=== PATIENT | female | born 1965 | race Caucasian/White ===

== ENCOUNTER 2022-04-12 16:54 | Inpatient (IN) ==
--- NOTE | 2022-04-12 18:48 | XRay Report ---
SINGLE VIEW CHEST CLINICAL HISTORY: Strokelike symptoms. FINDINGS: An AP, portable, upright chest radiograph is obtained. No prior studies are available for c omparison at the time of dictation. The cardiomediastinal silhouette is unremarkable. The lungs and p leural spaces are clear. No pneumothorax is seen. The bony thorax is grossly intact. IMPRESSION: No active disease in the chest. ACT 112: Negative or not required by law. Electronically signed by: Sushant Lara M.D. 04/12/2022 6:46 PM
--- NOTE | 2022-04-12 19:16 | Emergency Department Note ---
Impression & Plan Acute CVA (cerebrovascular accident), Dizziness ED Provider Note NAME: DEYSI GRUBBS AGE: 57 SEX: F : 1965 ARRIVES VIA: Walk-In INFORMANT: Patient ED PROVIDER(S): Surendra Riddle DO CHIEF COMPLAINT: CVA HPI: Patient is a 57-year-old female with a past medical history of cervical radiculopathy that presents the ER for right arm weakness. Symptoms started on the . Patient has been having trouble walking and trouble getting words out since then. Patient was seen and evaluated at outside facility and will go with a TIA. Patient was seen by PCP today and referred in. Sister who is at bedside also notes that the patient has been having trouble getting her words out. She notes that she has been very unsteady since this started. No tingling or numbness. No other exacerbating or remitting factors. PAST MEDICAL HISTORY:See Below PAST SURGICAL HISTORY:See Below FAMILY HISTORY:See Below SOCIAL HISTORY:See Below HOME MEDICATIONS:See Below ALLERGIES:See Below VITALS:See Below PHYSICAL EXAMINATION: GENERAL: Sitting up in bed, alert, well appearing, well nourished, no distress, non-toxic EYE EXAM: normal conjunctiva. OROPHARYNX: no exudate, no erythema, lips, buccal mucosa, and tongue normal and mucous membranes are moist NECK: supple, no nuchal rigidity, no adenopathy, non-tender LUNGS: Clear to auscultation. Normal chest wall mechanics HEART: no murmurs, S1 normal and S2 normal ABDOMEN: abdomen soft, non-tender, normo-active bowel sounds, no masses, no rebound or guarding. UPPER EXTREMITIES: upper extremities are grossly normal. LOWER EXTREMITIES: No pitting edema. NEURO EXAM: Normal sensorium, cranial nerves II-XII grossly intact, normal speech, no weakness of arms, no weakness of legs. MEDICAL DECISION MAKING: Patient is a 57-year-old female external records were reviewed including MRI which showed subacute stroke ordered by Dr. Villa. Did discuss with PCP per physician Dr. Villa who is sending this patient over for complete stroke work- up. IV was established blood work is obtained. Blood pressure was slightly elevated at 155. Did allow permissive hypertension with recent stroke. Labs show mild leukocytosis. No anemia. INR unremarkable. BMP with no acidosis. LFTs bilirubin was unremarkable. Troponin was negative. COVID-negative. Chest x-ray was clean. EKG was nondiagnostic. He was updated bedside. [facility] in regards to the stroke which was subacute. Triage Nursing notes reviewed. Limited review of prior medical records performed Vital Signs: reviewed and remarkable for HTN Differential diagnosis: Differential Diagnosis includes but is not limited to ischemic Stroke, hemorrhagic stroke, bells palsy, mass, neoplasm, migraine headache, seizure, subarachnoid hemorrhage, TIA, and transient global amnesia. ER treatment provided: See below Diagnostics interpreted by me include EKG and cardiac monitoring as listed below: -Cardiac Monitoring: An order was placed for continuous cardiac monitoring. The monitor shows a rate of 90 with sinus rhythm. -ECG: Sinus rhythm rate 95 Normal axis No PVCs Poor baseline in the lateral leads showing nonspecific ST wave changes. QTc 497 -Laboratory studies:Interpreted by me as stated above in MDM and shown below. Imaging studies: Xrays: As interpreted by me: Portable AP upright 1 view chest unremarkable CTs show: none Consultation(s): [facility] Pierce approved in regards to presentation work-up and admission Procedures:none Critical Care: None Past Med/Surg History Medical History (Updated 04/12/22 @ 22:03 by Surendra Riddle DO) Depression Diabetes mellitus, type 2 Fibromyalgia Hx of duodenal ulcer Hx of migraines Hyperlipidemia Hypertension Post traumatic stress disorder Restless leg syndrome Sleep apnea BIPAP Surgical History H/O total hysterectomy History of bilateral tubal ligation History of cholecystectomy History of esophagogastroduodenoscopy (EGD) History of gynecologic surgery UTERINE ABLATION History of herniorrhaphy LEFT INGUINAL HERNIA X 2 History of repair of rotator cuff LEFT History of tooth extraction Nausea and vomiting after administration of anesthetic agent Status post de Quervain's release surgery LEFT HAND Family History Mother Family history of diabetes mellitus Father No problems noted. Grandmother (Paternal) Family history of diabetes mellitus Grandmother (Maternal) Family history of diabetes mellitus Social History Smoking Status: Former smoker Second Hand Exposure: Yes; Hx Alcohol Use: No Hx Substance Use: No Preferred Language: Moldovan Communication Ability: Effective Soda Dialyzer Required: No Beliefs That Will Affect Care: None Current Living Situation: Significant Other Feels Safe at Home: Yes Assistive Devices: BiPap and Contacts Allergies Allergies Allergy/AdvReac Type Severity Reaction Status Date / Time No Known Allergies Allergy Verified 04/12/22 18:50 Home Meds Home Medications Medication Instructions Recorded Confirmed amlodipine 5 mg tablet (Norvasc) 5 mg PO HS 02/23/19 04/12/22 atorvastatin 40 mg tablet 40 mg PO HS 02/23/19 04/12/22 duloxetine 30 mg capsule,delayed 30 mg PO QAM 02/23/19 04/12/22 release (Cymbalta) duloxetine 60 mg capsule,delayed 60 mg PO QAM 02/23/19 04/12/22 release metformin 1,000 mg tablet 1,000 mg PO BIDM 02/23/19 04/12/22 carvedilol 6.25 mg tablet 6.25 mg PO AMHS 04/12/22 04/12/22 cholecalciferol (vitamin D3) 50 50 mcg PO QAM 04/12/22 04/12/22 mcg (2,000 unit) capsule (Vitamin D3) diclofenac sodium 1 % topical gel 2 g topical QID PRN Pain 04/12/22 04/12/22 insulin detemir U-100 100 unit/mL 80 unit subcut BID 04/12/22 04/12/22 (3 mL) subcutaneous pen (Levemir FlexTouch U-100 Insulin) levothyroxine 75 mcg tablet 75 mcg PO DAILYBB 04/12/22 04/12/22 lisinopril 10 mg tablet 10 mg PO QAM 04/12/22 04/12/22 repaglinide 2 mg tablet 2 mg PO QPM 04/12/22 04/12/22 topiramate 50 mg tablet 50 mg PO AMHS 04/12/22 04/12/22 Results & Data (ED) Vital Signs Vital Signs - 24 hr 04/12/22 16:57 04/12/22 19:16 Temperature 36.4 C L Temperature Source Temporal Artery Scan Pulse Rate 94 H Pulse Rate [Finger] 94 H Pulse Rhythm [Finger] Regular Pulse Strength [Finger] Normal Respiratory Rate 18 18 Respiratory Effort / Characteristics Non-Labored Non-Labored Spontaneous Respiratory Depth Normal Normal Respiratory Pattern Regular Regular Blood Pressure 160/83 H Blood Pressure [Right Arm] 155/81 H Blood Pressure Mean 108 Blood Pressure Mean [Right Arm] 105 Blood Pressure Position Sitting Blood Pressure Position [Right Arm] Lying Pulse Oximetry 99 95 Oxygen Delivery Method Room Air Room Air Sepsis Recent Fever Within 48 Hours No Sepsis New/Unexplained Change in Mental Status No Sepsis Action Taken by Nursing No Action Required Laboratory Data 04/12/22 19:36 04/12/22 19:36 Lab Results 04/12/22 04/12/22 04/12/22 Range/Units 18:47 19:36 19:36 WBC 12.23 H (4.8-10.8) K/ul RBC 4.34 (3.93-5.22) M/uL Hgb 13.0 (12.0-16.0) g/dl Hct 39.2 (34.1-44.9) % MCV 90.3 (80.0-100.0) fL MCH 30.0 (25.0-34.0) pg MCHC 33.2 (32.0-36.0) g/dL RDW Std Deviation 42.3 (36.4-46.3) fL RDW Coeff of Lucius 12.7 (11.5-14.5) % Plt Count 378 (130-400) K/uL MPV 9.7 (9.4-12.3) fL PT 10.5 (9.0-12.0) Seconds INR 1.0 (0.9-1.1) APTT 24.5 (21.0-31.0) Seconds PTT Ratio 0.9 Sodium (136-145) mmol/L Potassium (3.5-5.1) mmol/L Chloride (98-107) mmol/L Carbon Dioxide (21-32) mmol/L Anion Gap (3-11) BUN (6-23) mg/dl Creatinine (0.6-1.2) mg/dl Est Cr Clr Drug Dosing ml/min Est GFR ( Amer) ml/min Est GFR (Non-Af Amer) ml/min BUN/Creatinine Ratio (10-20) Glucose (70-99(Fasting)) mg/dl Calcium (8.5-10.1) mg/dl Magnesium (1.7-2.4) mg/dl Total Bilirubin (0.2-1.0) mg/dl AST (13-39) U/L ALT (7-52) U/L Alkaline Phosphatase (34-104) U/L Troponin I High Sens (0-14) pg/ml Total Protein (6.0-8.3) gm/dl Albumin (3.4-5.0) gm/dl Globulin (2.5-4.0) gm/dl Albumin/Globulin Ratio (0.9-2) SARS-CoV-2, RNA, NAAT NEGATIVE (NEGATIVE) 04/12/22 Range/Units 19:36 WBC (4.8-10.8) K/ul RBC (3.93-5.22) M/uL Hgb (12.0-16.0) g/dl Hct (34.1-44.9) % MCV (80.0-100.0) fL MCH (25.0-34.0) pg MCHC (32.0-36.0) g/dL RDW Std Deviation (36.4-46.3) fL RDW Coeff of Lucius (11.5-14.5) % Plt Count (130-400) K/uL MPV (9.4-12.3) fL PT (9.0-12.0) Seconds INR (0.9-1.1) APTT (21.0-31.0) Seconds PTT Ratio Sodium 142 (136-145) mmol/L Potassium 4.2 (3.5-5.1) mmol/L Chloride 108 H (98-107) mmol/L Carbon Dioxide 27 (21-32) mmol/L Anion Gap 7 (3-11) BUN 21 (6-23) mg/dl Creatinine 0.95 (0.6-1.2) mg/dl Est Cr Clr Drug Dosing 68.0 ml/min Est GFR ( Amer) 76.0 ml/min Est GFR (Non-Af Amer) 65.6 ml/min BUN/Creatinine Ratio 22.1 H (10-20) Glucose 209 H (70-99(Fasting)) mg/dl Calcium 9.6 (8.5-10.1) mg/dl Magnesium 1.5 L (1.7-2.4) mg/dl Total Bilirubin 0.4 (0.2-1.0) mg/dl AST 15 (13-39) U/L ALT 15 (7-52) U/L Alkaline Phosphatase 93 (34-104) U/L Troponin I High Sens 7.8 (0-14) pg/ml Total Protein 7.3 (6.0-8.3) gm/dl Albumin 3.8 (3.4-5.0) gm/dl Globulin 3.5 (2.5-4.0) gm/dl Albumin/Globulin Ratio 1.1 (0.9-2) SARS-CoV-2, RNA, NAAT (NEGATIVE) Imaging Data Radiologist's Impression: Chest X-Ray 04/12/22 18:22 SINGLE VIEW CHEST CLINICAL HISTORY: Strokelike symptoms. FINDINGS: An AP, portable, upright chest radiograph is obtained. No prior tanya dies are available for comparison at the time of dictation. The cardiomediastinal silhouette is unremarkable. The lungs and pleural spaces are clear. No pneumothorax is seen. The bony thorax is grossly intact. IMPRESSION: No active disease in the chest. ACT 112: Negative or not required by law. Electronically signed by: Sushant Lara M.D. 04/12/2022 6:46 PM Discharge Plan Visit Data Chief Complaint: Referred by Doctor Stated Complaint: PREVIOUS STROKE, REF BY DOC, ED Provider: Surendra Riddle Discharge Problem: Acute CVA (cerebrovascular accident), Dizziness Forms Stand Alone Forms: My [facility] [place] [employer] - teamwork across [employer] Prescriptions Prescriptions: No Action atorvastatin 40 mg Tablet 40 mg PO HS amlodipine [Norvasc] 5 mg Tablet 5 mg PO HS metformin 1,000 mg Tablet 1,000 mg PO BIDM duloxetine [Cymbalta] 30 mg Capsule,Delayed Release(Dr/Ec) 30 mg PO QAM Rx Instructions: TOTAL DOSE 90 MG--TAKES WITH 60 MG CAP. duloxetine 60 mg Capsule,Delayed Release(Dr/Ec) 60 mg PO QAM Rx Instructions: TOTAL DOSE 90 MG--TAKES WITH 30 MG CAP. carvedilol 6.25 mg tablet 6.25 mg PO AMHS repaglinide 2 mg tablet 2 mg PO QPM levothyroxine 75 mcg tablet 75 mcg PO DAILYBB lisinopril 10 mg tablet 10 mg PO QAM topiramate 50 mg tablet 50 mg PO AMHS Levemir FlexTouch U-100 Insuln 100 unit/mL (3 mL) insulin pen 80 unit SUBCUT BID diclofenac sodium [Voltaren] 1 % Gel 2 g TOPICAL QID PRN (Reason: Pain) cholecalciferol (vitamin D3) [Vitamin D3] 50 mcg (2,000 unit) Capsule 50 mcg PO QAM Referrals Referrals: Venecia Villa, [Primary Care Provider] -
[2022-04-12 19:52] LABS: Hematocrit (blood only) 39.2 % (34.1-44.9); Mean Corpuscular Hgb Conc 33.2 g/dL (32.0-36.0); Mean Corpuscular Volume 90.3 fL (80.0-100.0); Mean Platelet Volume 9.7 fL (9.4-12.3); Platelet Count 378 K/uL (130-400); RDW Coefficient of Variation 12.7 % (11.5-14.5); RDW Standard Deviation 42.3 fL (36.4-46.3); Red Blood Count 4.34 M/uL (3.93-5.22); White Blood Count 12.23 K/ul (4.8-10.8)
[2022-04-12 20:04] LABS: Partial Thromboplastin Ratio 0.9; Partial Thromboplastin Time 24.5 Seconds (21.0-31.0); Prothrombin Time 10.5 Seconds (9.0-12.0)
[2022-04-12 20:14] LABS: Albumin Globulin Ratio 1.1 (0.9-2); Albumin Level 3.8 gm/dl (3.4-5.0); BUN Creatinine Ratio 22.1 (10-20); Bilirubin,Total 0.4 mg/dl (0.2-1.0); Calcium 9.6 mg/dl (8.5-10.1); Est GFR (Non-African American) 65.6 ml/min; Globulin 3.5 gm/dl (2.5-4.0); Magnesium 1.5 mg/dl (1.7-2.4); Potassium 4.2 mmol/L (3.5-5.1); Total Protein 7.3 gm/dl (6.0-8.3)
[2022-04-12 20:18] LABS: Troponin I High Sensitivity 7.8 pg/ml (0-14)
[2022-04-12] MEDS ORDERED: NITROGLYCERIN SL 0.4 MG/TAB TAB SL PRN (22:10)
[2022-04-12] MEDS ORDERED: GLUCAGON FOR INJ 1 MG VIAL SQ PRN (22:10)
[2022-04-12] MEDS ORDERED: GLUCOSE 10 TAB/TUBE PO PRN (22:10)
[2022-04-12] MEDS ORDERED: GLUCOSE 40% GEL 15 GM TUBE PO PRN (22:10)
[2022-04-12] MEDS ORDERED: SODIUM CHLORIDE 0.9% 1000ML 1,000 ML IV SCH (22:10)
[2022-04-12] MEDS ORDERED: DEXTROSE 50% 50 ML SYRINGE IV PRN (22:10)
[2022-04-12] MEDS ORDERED: CARBOHYDRATES FOR HYPOGLYCEMIA PO PRN (22:10)
[2022-04-12] MEDS ORDERED: LABETALOL HCL IV 5 MG/ML 20ML IV PRN (22:10)
[2022-04-12] MEDS ORDERED: PHARMACIST DISCHARGE MED REC CONSULT PRN (22:10)
[2022-04-12] MEDS ORDERED: ACETAMINOPHEN 325 MG TAB PO PRN (22:10)
[2022-04-12] MEDS ORDERED: ASPIRIN 81 MG ECTAB PO STA (22:10)
[2022-04-12] MEDS ORDERED: ATORVASTATIN 40 MG TAB PO SCH (22:10)
[2022-04-12] MEDS: MAGNESIUM SULFATE / D5W 1 GM/100 ML BAG IV SCH (22:29)
--- NOTE | 2022-04-12 22:50 | History and Physical Report ---
DATE OF ADMISSION: 04/12/2022 CHIEF COMPLAINT: CVA. HISTORY OF PRESENT ILLNESS: A 57-year-old female with past medical history significant for type 2 diabetes on long-term insulin, hyperlipidemia, history of hypomagnesemia, history of obstructive sleep apnea on CPAP, history of hypertension, history of CAD, obesity, GERD, chronic kidney disease stage III, fibromyalgia, degenerative disc disease, macular degeneration both eyes, polyneuropathy, essential hemorrhagic thrombocythemia, history of duodenal ulcer, history of chronic posttraumatic stress disorder, history of nonadherence to medications, comes with stroke-like symptoms. 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 She seemed confused. Then her came and she sat in the chair for 15 minutes. Her sister came in and they took her to the [facility] where she says she stayed for 3 days and had three CAT scans. The CAT scans did not show anything, but they thought maybe she might have a TIA. She was started on aspirin and discharged. The patient says she also had some imbalance, but there was no weakness. She says she thinks she is still not back to normal. She still has some dullness and also she has word finding difficulty many times in a day. No difficulty swallowing. Has some runny nose, some cough. No fevers, no chest pain, no shortness of breath, no nausea, no abdominal pain. Normal bowel and bladder movements. No blood in stools or black stools. No hematuria, no swelling in the legs. She is complaining some slight on and off blurred visions. No earache. She has some left temporal headache on and off lasting short period of times. Currently, resting comfortably and hemodynamically stable.MRI scan done as out patient today showed subacute CVA ALLERGIES: No known drug allergies. PAST MEDICAL HISTORY: As mentioned above. PAST SURGICAL HISTORY: Ablation of uterine fibroids, hysterectomy, ligation of oviducts, cholecystectomy, repair of inguinal hernia on left side. MEDICATIONS: The patient is on amlodipine 5 mg p.o. daily, atorvastatin 40 mg p.o. at bedtime, Coreg 6.25 mg p.o. b.i.d., vitamin D 50 mcg p.o. a.m., Voltaren 2 grams topical q.i.d. p.r.n., duloxetine 90 mg p.o. a.m., Levemir 80 subcutaneous b.i.d., levothyroxine 75 mcg p.o. daily, lisinopril 10 mg p.o. daily, metformin 1000 mg p.o. b.i.d., topiramate 50 mg p.o. b.i.d. FAMILY HISTORY: Significant for sister had breast cancer, melanoma. Sister has stroke. Paternal grandfather black lung. Paternal grandmother had kidney disease. Maternal grandmother had heart attack. Father had COPD. SOCIAL HISTORY: Lives with significant other. Former smoker, quit in 2008, smoked 1 pack a day for 23 years. No alcohol use. No drug use. REVIEW OF SYSTEMS: As per HPI. Rest of review of systems is negative. PHYSICAL EXAMINATION: GENERAL: The patient is obese, not in acute distress. VITAL SIGNS: Temperature 36.4, pulse 94, respiratory rate 18, blood pressure 155/81, oxygen on room air. HEENT: Pupils equal, round and reactive to light. Oral mucosa moist. NECK: No JVD or neck masses. CARDIOVASCULAR: S1 and S2 heard. Regular rate and rhythm. No murmur, no gallop. RESPIRATORY SYSTEM: Normal AP diameter. No accessory muscle use. No wheezing, no crackles. ABDOMEN: Soft, bowel sounds present, nontender, no distention. CENTRAL NERVOUS SYSTEM: Alert and oriented. No facial droop. Speech is clear. Tongue is midline. Can raise bros and clench teeth. Power 5/5 in all extremities. Can lift her lower extremity and hold it for a few seconds. Coordination of movements normal. No pronator drift. Sensation is intact. Position sense intact. [id number] test normal. EXTREMITIES: No edema, no erythema. LABORATORY DATA: WBC 12.2, hemoglobin 13, hematocrit 39.2, platelets 378. PT 10.5, INR 1, APTT 24.5. Sodium 142, potassium 4.2, chloride 108, bicarbonate 27, BUN 21, creatinine 0.95. Serum glucose 209, calcium 9.6, magnesium 1.5, total bilirubin 0.4, AST 15, ALT 15, alkaline phosphatase 93. SARS-CoV-2 rapid test negative. IMAGING DATA: Chest x-ray, no active disease in the chest. EKG: Normal sinus rhythm, rate of 95, nonspecific ST abnormalities. QTc of 497. MRI done as outpatient in the [facility] system shows : . No acute intracranial abnormality detected. However there is a subcentimeter focus of enhancement corresponding to a subacute infarct of the right frontal lobe anterior inferior aspect, without evidence of hemorrhagic transformation. 2. There are scattered foci of T2 hyperintensity in the cerebral and central pontine white matter bilaterally, without restricted diffusion, a non-specific finding. This pattern most commonly reflects chronic small vessel ischemic change (if the patient has appropriate risk factors). Otherwise, inflammatory, embolic, vasospastic and traumatic processes are also in the differential diagnosis. Cerebral volume loss is also noted. ASSESSMENT AND PLAN: 1. This is a 57-year-old female who presents with subacute CVA. The patient has stroke-like symptoms on last Friday, was admitted to [facility], had three CAT scans, but no findings as per patient They thought the patient might have TIA, started on aspirin. She has outpatient MRI done on 04/12/2022 showing subacute infarct of the right frontal lobe, anterior aspect without evidence of hemorrhagic transformation. She is continued on home Lipitor 40 mg. Follow lipid profile. Will follow HbA1c levels. We will monitor blood pressure control. Continue aspirin. We will get an echocardiogram, carotid Doppler, speech evaluation, PT/OT evaluation. Neuro consult in a.m. Closely monitor in the tele floor. 2. Hypertension: Continue her lisinopril, amlodipine, Coreg. We will monitor the blood pressure closely. 3. History of diabetes: Continue home Levemir. Hold metformin. Place on insulin sliding scale. Follow HbA1c level. Follow the blood sugars. 4. History of PTSD, fibromyalgia. Continue her duloxetine. 5. Sleep apnea: CPAP at bedtime. 6. History of coronary artery disease: On beta liudmila, statin and aspirin. 7. Morbid obesity: Needs counseling. 8. Chronic kidney disease, stage III: Presents with creatinine of 0.9. We will follow the labs. 9. Hypomagnesemia: We will replace. 10. Hyperlipidemia: On statin. 11. Deep venous thrombosis prophylaxis: Sequential compression devices for now. DISPOSITION: Closely monitor in the tele floor. Level 1 full code. PT, OT prior to discharge. Social service to help with discharge planning. Job ID: [id number] [facility]
[2022-04-12] MEDS: INSULIN ASPART PER UNIT SC SCH (23:01)
[2022-04-12] MEDS: LANTUS PER UNIT CHARGE SQ SCH (23:01)
[2022-04-12] MEDS: TOPIRAMATE 50 MG TAB PO SCH (23:38)
[2022-04-12] MEDS: carvediloL 6.25 MG TAB PO SCH (23:38)
[2022-04-12] MEDS: amLODIPine BESYLATE 5 MG TAB PO SCH (23:39)
[2022-04-13] MEDS: MAGNESIUM SULFATE / D5W 1 GM/100 ML BAG IV SCH (00:04)
[2022-04-13] MEDS: LEVOTHYROXINE SODIUM 75 MCG TABLET PO SCH (05:45)
[2022-04-13 08:21] LABS: Basophils # (auto) 0.06 K/uL (0-0.2); Basophils % (auto) 0.5 %; Eosinophils # (auto) 0.33 K/uL (0-0.50); Eosinophils % (auto) 2.7 %; Hematocrit (blood only) 37.3 % (34.1-44.9); Hemoglobin 12.5 g/dl (12.0-16.0); Immature Granulocytes # (auto) 0.04 K/uL (0.00-0.02); Immature Granulocytes % (auto) 0.3 %; Lymphocytes # (auto) 4.52 K/uL (1.2-3.4); Lymphocytes % (auto) 36.8 %; Mean Corpuscular Hemoglobin 30.4 pg (25.0-34.0); Mean Corpuscular Hgb Conc 33.5 g/dL (32.0-36.0); Mean Corpuscular Volume 90.8 fL (80.0-100.0); Mean Platelet Volume 9.8 fL (9.4-12.3); Monocytes # (auto) 0.87 K/uL (0.24-0.82); Monocytes % (auto) 7.1 %; Neutrophils # (auto) 6.47 K/uL (1.4-6.5); Neutrophils % (auto) 52.6 %; Platelet Count 365 K/uL (130-400); RDW Coefficient of Variation 12.7 % (11.5-14.5); RDW Standard Deviation 41.9 fL (36.4-46.3); Red Blood Count 4.11 M/uL (3.93-5.22); White Blood Count 12.29 K/ul (4.8-10.8)
[2022-04-13 08:38] LABS: BUN Creatinine Ratio 19.5 (10-20); Calcium 8.6 mg/dl (8.5-10.1); Chol HDL Ratio 3.8 (0-5); Creatinine Clr Calc Pharmacy 69.2 ml/min; Est GFR (African American) 84.5 ml/min; Est GFR (Non-African American) 72.9 ml/min; Potassium 3.6 mmol/L (3.5-5.1)
[2022-04-13 08:41] LABS: Estimated Average Glucose 171 mg/dl; Hemoglobin A1C 7.6 % (4.5-5.6)
[2022-04-13] MEDS: INSULIN ASPART PER UNIT SC SCH ×4 (09:14→20:06)
[2022-04-13] MEDS: carvediloL 6.25 MG TAB PO SCH ×2 (09:15→20:08)
[2022-04-13] MEDS: LANTUS PER UNIT CHARGE SQ SCH ×2 (09:15→20:07)
[2022-04-13] MEDS: DULoxetine HCL 30 MG CAP PO SCH (09:15)
[2022-04-13] MEDS: CHOLECALCIFEROL 1,000 UNITS 25 MCG TAB PO SCH (09:15)
[2022-04-13] MEDS: DULoxetine HCL 60 MG CAP PO SCH (09:15)
[2022-04-13] MEDS: lisinopril 10 MG TAB PO SCH (09:16)
[2022-04-13] MEDS: ASPIRIN 81 MG ECTAB PO SCH (09:16)
[2022-04-13] MEDS: TOPIRAMATE 50 MG TAB PO SCH ×2 (09:16→20:08)
--- NOTE | 2022-04-13 10:22 | Ultrasound Report ---
US carotid doppler BI CLINICAL HISTORY: 57 years-old Female with cva. Acute strokelike symptoms COMPARISON: None TECHNIQUE: Multiple real time sonographic images of the carotid bifurcations were obtained assessing castro scale, color Doppler and spectral wave form appearance FINDINGS: RIGHT CAROTID: The peak systolic velocity measured within the right ICA is 111 cm/sec. The end call tolic velocity measured 31 cm/sec. The ICA to CCA ratio measured 1.3 which correlates with a stenosi s of 0-50%. Mild atherosclerotic plaque of the right carotid bulb and proximal right ICA. LEFT CAROTID: The peak systolic velocity measured within the left ICA is 145 cm/sec. The end diasto lic velocity measured 42 cm/sec. The ICA to CCA ratio measured 1.1 which correlates with a stenosis o f 50-69%. Mild atherosclerotic plaque of the left carotid bulb and proximal left ICA. There is normal antegrade vertebral flow bilaterally. IMPRESSION: 1. Elevated peak systolic velocity within the left ICA correspond to stenosis of 50-69%. 2. Normal antegrade vertebral flow bilaterally. ACT 112: Negative or not required by law. The above report was generated using voice recognition software. It may contain grammatical, syntax o r spelling errors. Electronically signed by: Rohan Bonner M.D. 04/13/2022 10:20 AM
--- NOTE | 2022-04-13 10:45 | Neurology Consultation ---
Date of Consultation April 13, 2022 Assessment & Plan (1) Acute CVA (cerebrovascular accident): (2) Speech abnormality: (3) Dizziness: (4) Carotid stenosis, left: Plan this patient has a very small inferior anterior right frontal subacute CVA (likely initiated April 05 ). This is likely from small vessel ischemic disease. She has multiple risk factors for stroke including longstanding hypertension, diabetes, and dyslipidemia. She is a former heavy cigarette smoker, stopping 13 years ago. MRI of the brain done at [facility] on April 12 shows the subacute stroke and moderate scattered old small vessel ischemic disease diffusely. The patient has some dizziness of a nonspecific nature. on neurologic examination she has no focal findings, speech issues that I can ascertain ( although she is a little hesitant to find words at times) meningeal signs, or encephalopathy. Carotid ultrasound showed a 50-69% stenosis of the left ICA. Recommendations: 1. consider CT angiography of the head and neck with and without contrast 2. Continue 81 mg aspirin tablet daily. 3. Echocardiogram if not already ordered. 4. Continue controlling blood pressure as you are doing, aiming for a mean arterial pressure of 95-100. 5. the patient would be a high dose statin candidate given her MRI findings and age. Her triglycerides are elevated although her total cholesterol is reasonable. 6. Increase activity as able and consider physical, occupational, and speech th [facility] consult. 7. control glucose, aiming to lower the hemoglobin A1c closer to 7. 8. follow-up with her PCP after discharge. Overall, I spent a total of 75 minutes with this case, including review of records, review of MRI films, direct evaluation the patient at bedside, and discussion of the case with the patient and RN at bedside, and Dr. Reeder including differential diagnosis and treatment options. History of Present Illness Reason for Consultation: Patient is a 57-year-old, who was asked to see at the request of Dr. Pierce, for neurologic consultation regarding probable stroke Requesting Physician: Dr. Pierce Attending Physician: Ifeoma Reeder MD History of Present Illness this patient has a history of hypertension, diabetes, and dyslipidemia for many years. She also has restless leg syndrome and depression. She was not on any antiplatelet medication prior to admission. 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 This was markedly different for her and she was quite upset by this. She apparently went to the emergency room at [facility] and had CAT scans and other studies which were unremarkable. She had a tele visit with at either neurologist or neurosurgeon who felt the patient might still had a stroke and recommended an MRI. She was discharged from the hospital, and ended up seeing her PCP Dr. Villa, who ordered an MRI of the brain, which she got in [facility] April 12. The MRI Of the brain April 12, showed scattered T2 hyperintensities in the white matter and shree consistent with old small vessel ischemic disease. There was 1 small (sub cm) subacute infarct in the right frontal lobe ( anterior inferior). There was no hemorrhagic component. I reviewed these films. She was sent to [facility]. She arrived on April 12 at 4:57 p.m. with temperature 36.4, pulse 94 and regular, respiratory rate 18, blood pressure 160/83, and O2 saturation 99%. She had a nonfocal neurologic examination. CBC was remarkable for a white count of 12.3 and a chemistry profile was remarkable for glucose of 209. Chest x-ray was unremarkable. Her speech was slightly affected. Patient feels this morning that she still has hesitancy and word-finding difficulties although it has improved greater than 50% compared to last week. Today CBC showed no abnormalities and a Chem profile showed a magnesium of 1.5 and glucose of 183. Total cholesterol was 144 and triglycerides 268. Hemoglobin A1c was 7.6. The patient does have a longstanding history of pulsatile tinnitus without hearing loss. She denies weakness or numbness in the limbs but she does have a little bit of balance problem seemingly going to the left at times. Carotid ultrasound today showed a left internal carotid artery stenosis of 50-6 9%. Allergies Allergy/AdvReac Type Severity Reaction Status Date / Time No Known Allergies Allergy Verified 04/12/22 18:50 Home Medications Medication Instructions Recorded Confirmed Type amlodipine 5 mg tablet (Norvasc) 5 mg PO HS 02/23/19 04/12/22 History atorvastatin 40 mg tablet 40 mg PO HS 02/23/19 04/12/22 History duloxetine 30 mg capsule,delayed 30 mg PO QAM 02/23/19 04/12/22 History release (Cymbalta) duloxetine 60 mg capsule,delayed 60 mg PO QAM 02/23/19 04/12/22 History release metformin 1,000 mg tablet 1,000 mg PO BIDM 02/23/19 04/12/22 History carvedilol 6.25 mg tablet 6.25 mg PO AMHS 04/12/22 04/12/22 History cholecalciferol (vitamin D3) 50 50 mcg PO QAM 04/12/22 04/12/22 History mcg (2,000 unit) capsule (Vitamin D3) diclofenac sodium 1 % topical gel 2 g topical QID PRN Pain 04/12/22 04/12/22 History insulin detemir U-100 100 unit/mL 80 unit subcut BID 04/12/22 04/12/22 History (3 mL) subcutaneous pen (Levemir FlexTouch U-100 Insulin) levothyroxine 75 mcg tablet 75 mcg PO DAILYBB 04/12/22 04/12/22 History lisinopril 10 mg tablet 10 mg PO QAM 04/12/22 04/12/22 History repaglinide 2 mg tablet 2 mg PO QPM 04/12/22 04/12/22 History topiramate 50 mg tablet 50 mg PO AMHS 04/12/22 04/12/22 History Patient History Medical History (Updated 04/13/22 @ 11:30 by Foster Mistry MD) Depression Diabetes mellitus, type 2 Fibromyalgia Hx of duodenal ulcer Hx of migraines Hyperlipidemia Hypertension Post traumatic stress disorder Restless leg syndrome Sleep apnea BIPAP Surgical History H/O total hysterectomy History of bilateral tubal ligation History of cholecystectomy History of esophagogastroduodenoscopy (EGD) History of gynecologic surgery UTERINE ABLATION History of herniorrhaphy LEFT INGUINAL HERNIA X 2 History of repair of rotator cuff LEFT History of tooth extraction Nausea and vomiting after administration of anesthetic agent Status post de Quervain's release surgery LEFT HAND Family History Mother , age 56 of lung cancer Family history of diabetes mellitus Lung cancer Father , age 76 of COPD COPD (chronic obstructive pulmonary disease) Grandmother (Paternal) Family history of diabetes mellitus Grandmother (Maternal) Family history of diabetes mellitus Social History (Updated 04/13/22 @ 11:28 by Foster Mistry MD) Smoking Status: Former smoker Age Started Using Tobacco: 21; Age Quit Using Tobacco: 44; Second Hand Exposure: No; Do You Dip or Chew Tobacco: No; Tobacco Cessation Education Requested by Patient: No Hx Alcohol Use: No Hx Substance Use: No Preferred Language: Libyan Communication Ability: Effective Floriculturist Required: No Beliefs That Will Affect Care: None Current Living Situation: Significant Other current occupational status: employed 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 [employer] Other Information That Helps Us Care for You: No Feels Safe at Home: Yes Safety Concerns: Feels Safe At This Time Assistive Devices: None Review of Systems Constitutional: + weakness; no fever and no fatigue Eyes: no diplopia, no eye pain and no worsening vision Ear, Nose, Mouth, Throat: + tinnitus; no ear pain, no hearing loss, no dizziness, no snoring, no hoarseness and no dysphagia Respiratory: no cough and no dyspnea Cardiovascular: no chest pain, no palpitations and no lightheadedness Gastrointestinal: no abdominal pain, no nausea and no vomiting Genitourinary: no dysuria, no urinary frequency and no urinary incontinence Musculoskeletal: no back pain, no neck pain, no radicular pain, no joint pain and no myalgia Integumentary: no rash and no lesions Neurologic: + gait abnormality and + abnormal speech; no localized weakness, no generalized weakness, no tingling, no numbness, no tremor(s), no abnormal movements, no headache(s), no confusion and no memory loss Psychiatric: no depression, no irritability, no anxiety, no difficulty concentrating, no confusion and no hallucinations Endocrine: no fatigue and no flushing Hematologic / Lymphatic: no easy bleeding and no easy bruising Allergy / Immunological: no urticaria and no problem reported Exam (Neuro) Physical Exam: The patient is right-handed. The patient is awake, alert, and attentive. Speech is normal without any aphasia or dysarthria. The patient can name objects, repeat phrases, and has normal spontaneous speech. she can read words and sentences. I really do not detect any type of aphasia or dysarthria in this patient. Mentation and thought processes are intact, with orientation to person, place and time, and normal fund of knowledge. Attention and concentration are normal. Mood and affect are normal and appropriate. General appearance and grooming are normal. Short and long-term memory are intact. Pupils are 4 mm bilaterally and reactive to light. Extraocular eye muscles are intact without nystagmus. Visual acuity and visual schrader seem normal grossly to confrontation. There are no deficits to sensation in the face in all 3 distributions of the fifth cranial nerve bilaterally. Corneal reflexes are positive bilaterally. Facial strength and symmetry was normal bilaterally. Hearing seems normal bilaterally. Palate moves well without asymmetry. There is normal sternocleidomastoid and trapezius (shoulder shrug) strength bilaterally. Tongue is midline with good strength bilaterally. Neck has a full range of motion without discomfort. There are no cervical bruits bilaterally. There are no cranial or ocular bruits. Heart is without murmur. There is a regular rhythm and rate. Cervical, thoracic, and lumbar spine are nontender to palpation. Gait is narrow based, with good arm swing, turns, and stance , however, she is tentative/cautious. Balance is normal eyes open or closed. With outstretched arms there is no drift. There are no resting, postural, or action tremors. There is no ataxia with finger to nose testing. There is good facility in the hands. No other abnormal involuntary movements are noted. Motor strength is 5/5 diffusely in the arms bilaterally including deltoids, biceps, triceps, brachioradialis, wrist flexors and extensors, workers compensation claims assistant, and intrinsic hand muscles. Motor strength is 5/5 diffusely in the legs bilaterally including hip flexors, quadriceps, hamstrings, gastrocnemius, tibialis anterior, tibialis posterior, and Peroneii muscles. Toe extensors are normal and there is good bulk in the extensor digitorum brevis muscles bilaterally. The limbs have good tone without rigidity or spasticity. There is no atrophy noted in the muscles. Muscle bulk is normal, there is no tenderness to palpation, no myotonia to percussion, and no fasciculations seen. Sensory examination is intact to touch and pin throughout all 4 limbs diffusely. Reflexes are 1/4 in the biceps, triceps, brachioradialis, quadriceps, and Achilles tendons bilaterally. There is no clonus bilaterally. Toes are downgoing with plantar stimulation bilaterally. Peripheral pulses are present and of normal quality distally in all 4 limbs. There is no peripheral edema noted in the limbs. Results & Data ([facility]) Vital Signs (Past 12 Hours) Vital Signs Temp Pulse Pulse Resp BP Pulse Ox O2 Del Method 04/13/22 02:45 36.8 C 84 18 127/73 94 Room Air 04/12/22 23:19 96 H 04/12/22 23:02 37 C 91 H 18 156/82 H 96 Room Air PG Care Time/CCT Total # of Minutes Spent Total Time Spent with Patient: Total time spent is greater than 50% in coordination of care (as documented) at patient's floor/unit and/or counseling patient: Coding Level of Care Code 55614 INT INP/OBS CARE 375MIN Diagnoses Acute CVA (cerebrovascular accident) I63.9 Speech abnormality R47.9 Dizziness R42 Carotid stenosis, left I65.22 Time Spent (min) 75
--- NOTE | 2022-04-13 11:46 | Hospitalist Progress Note ---
Date of Service April 13, 2022 Assessment & Plan (1) Acute CVA (cerebrovascular accident): (2) Carotid stenosis, left: (3) Speech abnormality: Plan Ms Lisa Miller is a 57 year old female with history of hypertension, insulin dependent diabetes, former smoker was recently evaluated at an outside ER for stroke symptoms and subsequently found to have a subacute frontal CVA on outpatient MRI. She was admitted for further stroke workup. Subacute right frontal CVA -seen on outside MRI -Carotid u/s shows left ICA stenosis 50-69% -Appreciate Neurology input -Aspirin 81mg daily and atorvastatin--increase to 80mg IDDM -Diabetic diet, continue basal bolus regimen HTN -continue amlodipine, Coreg, lisinopril DVT ppx SQ heparin Likely discharge home tomorrow Admission and Anticipated Discharge Date Admission Date: April 12, 2022 Subjective Reports bladder spasm and end of voiding Denies fever/chills, chest pain or shortness of breath Physical Exam Physical Exam: Ambulating in room with no difficulty, pleasant and comfortable Respiratory: Breathing comfortably on room air, no wheezing/rhonchi/rales Cardiovascular: Regular rate and rhythm, no murmurs/rubs/gallops Gastrointestinal (Abdomen): soft, non tender, non distended Musculoskeletal: No edema Neurologic: awake, alert, ambulating in room with no difficulty Results & Data Results & Data ([facility]) Vital Signs (Past 12 Hours) Vital Signs Temp Pulse Resp BP Pulse Ox O2 Del Method 04/13/22 10:42 36.9 C 80 20 118/73 95 Room Air 04/13/22 02:45 36.8 C 84 18 127/73 94 Room Air
[2022-04-13] MEDS ORDERED: OPTIRAY 320 500ml IV ONE (12:37)
--- NOTE | 2022-04-13 13:17 | CT Scan Report ---
CT angio head wo/w, CT angio neck with con CLINICAL HISTORY: 57 years-old Female with stroke workup. Acute strokelike symptoms COMPARISON STUDY: None TECHNIQUE: Unenhanced axial CT scan of the brain is performed. Subsequently, following the IV adminis tration of 112 cc of Optiray, CT angiogram of the head and neck was performed from the skull base to the vertex. Images are reviewed in the axial, sagittal, and coronal planes. 3-D MIPS images are creat ed and assessed. IV contrast was administered without complication. All measurements were obtained ac cording to NASCET criteria. A dose lowering technique was utilized adhering to the principles of MELITA Carey. CT DOSE: 1197.78 mGy.cm FINDINGS: Motion degraded exam. CT BRAIN: There is no acute intracranial hemorrhage, midline shift, hydrocephalus, intracranial mass, territori al ischemia or abnormal extra-axial collections. No abnormal intra-axial or extra-axial enhancement. Involutional changes of the brain parenchyma. White matter hypodensities suggestive of chronic microv ascular ischemic disease. Mastoid air cells and middle ear cavities are clear. No calvarial fracture. Mild mucosal thickening of the paranasal sinuses. Mastoid air cells are clear. CT ANGIOGRAM OF THE HEAD AND NECK: The imaged bilateral internal carotid arteries are patent. Mild calcified plaque of the left carotid bulb and proximal left ICA without significant stenosis. The bilateral anterior and middle cerebral a rteries are also patent. Vertebral and basilar arteries. 50% luminal narrowing involves the P1 segmen t of the right posterior cerebral artery on image 86 series 5. Additional multifocal moderate to high -grade stenosis involving the distal portions of the bilateral posterior cerebral arteries. There is no aneurysm, high-grade stenosis, or proximal branch occlusion identified. Dural sinuses appear paten t. Multilevel degenerative changes of the cervical spine. IMPRESSION: 1. No acute intracranial abnormality. 2. Involutional changes with chronic microvascular ischemic disease. 3. Moderate to high-grade multifocal stenoses of the posterior cerebral arteries. 4. No aneurysm, dissection or proximal branch occlusion identified. ACT 112: Negative or not required by law. The above report was generated using voice recognition software. It may contain grammatical, syntax o r spelling errors. Electronically signed by: Rohan Bnoner M.D. 04/13/2022 1:14 PM
[2022-04-13] MEDS: amLODIPine BESYLATE 5 MG TAB PO SCH (20:07)
[2022-04-13 20:29] LABS: Appearance Urine Cloudy (Clear); Bacteria Urine Automated 4+ (Negative); Bilirubin Urine Negative (Negative); Blood Urine 1+ (Negative); Color Urine Yellow; Epithelial Cell Urine Auto >30 /lpf (0-5); Glucose Urine UA Negative (Negative); Ketones Urine Negative (Negative); Leukocyte Esterase Urine 1+ (Negative); Nitrite Urine Negative (Negative); Specific Gravity Urine > 1.045 (1.000-1.030); Urobilinogen Urine Negative (Negative); WBC Urine Automated >30 /hpf (0-5); pH Urine 7.5 (4.5-7.5)
[2022-04-13 20:50] LABS: Protein Urine 2+ (Negative)
[2022-04-13] MEDS ORDERED: ATORVASTATIN 40 MG TAB PO SCH (21:00)
[2022-04-14] MEDS: LEVOTHYROXINE SODIUM 75 MCG TABLET PO SCH (05:51)
[2022-04-14 06:16] LABS: Basophils # (auto) 0.03 K/uL (0-0.2); Basophils % (auto) 0.3 %; Eosinophils # (auto) 0.32 K/uL (0-0.50); Eosinophils % (auto) 2.9 %; Hematocrit (blood only) 35.5 % (34.1-44.9); Hemoglobin 11.9 g/dl (12.0-16.0); Immature Granulocytes # (auto) 0.03 K/uL (0.00-0.02); Immature Granulocytes % (auto) 0.3 %; Lymphocytes % (auto) 35.7 %; Mean Corpuscular Hemoglobin 30.2 pg (25.0-34.0); Mean Corpuscular Hgb Conc 33.5 g/dL (32.0-36.0); Mean Corpuscular Volume 90.1 fL (80.0-100.0); Mean Platelet Volume 9.9 fL (9.4-12.3); Monocytes # (auto) 0.86 K/uL (0.24-0.82); Monocytes % (auto) 7.7 %; Neutrophils # (auto) 5.96 K/uL (1.4-6.5); Neutrophils % (auto) 53.1 %; Platelet Count 340 K/uL (130-400); RDW Coefficient of Variation 12.7 % (11.5-14.5); RDW Standard Deviation 41.8 fL (36.4-46.3); Red Blood Count 3.94 M/uL (3.93-5.22)
[2022-04-14 06:32] LABS: BUN Creatinine Ratio 23.3 (10-20); Calcium 8.5 mg/dl (8.5-10.1); Creatinine Clr Calc Pharmacy 69.9 ml/min; Est GFR (African American) 85.7 ml/min; Est GFR (Non-African American) 73.9 ml/min; Potassium 3.9 mmol/L (3.5-5.1)
[2022-04-14] MEDS: lisinopril 10 MG TAB PO SCH (08:17)
[2022-04-14] MEDS: CHOLECALCIFEROL 1,000 UNITS 25 MCG TAB PO SCH (08:17)
[2022-04-14] MEDS: ASPIRIN 81 MG ECTAB PO SCH (08:17)
[2022-04-14] MEDS: DULoxetine HCL 30 MG CAP PO SCH (08:17)
[2022-04-14] MEDS: carvediloL 6.25 MG TAB PO SCH (08:17)
[2022-04-14] MEDS: DULoxetine HCL 60 MG CAP PO SCH (08:17)
[2022-04-14] MEDS: TOPIRAMATE 50 MG TAB PO SCH (08:17)
[2022-04-14] MEDS: INSULIN ASPART PER UNIT SC SCH ×2 (08:25→12:08)
[2022-04-14] MEDS: LANTUS PER UNIT CHARGE SQ SCH (08:25)
[2022-04-14] MEDS ORDERED: cefTRIAXone SODIUM 2,000 MG in DEXTROSE 5% 50 ML IV SCH (08:30)
--- NOTE | 2022-04-14 10:30 | Neurology Progress Note ---
Date of Service April 14, 2022 Assessment & Plan (1) Acute CVA (cerebrovascular accident): (2) Speech abnormality: (3) Dizziness: (4) Carotid stenosis, left: Plan This patient has a very small, inferior, anterior, right frontal, subacute CVA (likely initiated April 05 ). This is likely from small vessel ischemic disease. She has multiple risk factors for stroke including longstanding hypertension, diabetes, and dyslipidemia. She is a former heavy cigarette smoker, stopping 13 years ago. MRI of the brain done at [facility] on April 12 shows the subacute stroke and moderate scattered old small vessel ischemic disease diffusely. The patient has some dizziness of a nonspecific nature. on neurologic examination she has no focal findings or speech issues that I can ascertain, meningeal signs, or encephalopathy. Carotid ultrasound showed a 50-69% stenosis of the left ICA , however, CT angiography did not show any carotid stenosis. She does have posterior cerebral artery stenosis of a significant nature bilaterally.. Recommendations: 1. Continue 81 mg aspirin tablet daily. 2. Continue controlling blood pressure as you are doing, aiming for a mean arterial pressure of 95-100. 5. the patient would be a high dose statin candidate given her MRI findings and age. Her triglycerides are elevated although her total cholesterol is reasonable. 6. Increase activity as able and consider physical, occupational, and speech therapy consult. 7. control glucose, aiming to lower the hemoglobin A1c closer to 7. 8. follow-up with her PCP after discharge. Overall, I spent a total of 35 minutes with this case, including review of records, direct evaluation the patient at bedside, and discussion of the case with the patient at bedside, and Dr. Reeder including differential diagnosis and treatment options. Admission and Anticipated Discharge Date Admission Date: April 12, 2022 Subjective Patient has no complaint of pain or headache. She feels improved and only has some slight hesitancy to her speech. Echocardiogram was unremarkable. CT angiography of the head and neck were unremarkable except for some moderate to significant stenoses of the posterior cerebral arteries bilaterally. Unlike the carotid ultrasound, no significant left internal carotid artery stenosis was noted. Glucose was 152 and white c ount was 11.2 otherwise CBC and Chem profile were unremarkable. Results & Data ([facility]) Vital Signs (Past 12 Hours) Vital Signs Temp Pulse Pulse Resp BP Pulse Ox O2 Del Method 04/14/22 07:55 36.4 C L 85 20 134/74 96 Room Air 01/08/23 02:54 36.6 C 86 18 114/66 97 Room Air 04/13/22 23:02 37 C 86 18 137/77 95 Room Air 04/13/22 23:00 94 H Exam (Neuro) Physical Exam: She is awake and alert. Speech is without obvious a phase or dysarthria. I do not even notice any obvious hesitancy for word-finding. Extraocular muscles are intact without nystagmus. There is no facial droop. Coordination is normal in the arms without tremor or ataxia. Strength is symmetrical in the limbs. No abnormal involuntary movements were noted. PG Care Time/CCT Total # of Minutes Spent Total Time Spent with Patient: Total time spent is greater than 50% in coordination of care (as documented) at patient's floor/unit and/or counseling patient: Coding Level of Care Code 18740 SUB INP/OBS CARE 2/35MIN Diagnoses Acute CVA (cerebrovascular accident) I63.9 Speech abnormality R47.9 Dizziness R42 Carotid stenosis, left I65.22 Time Spent (min) 35
[2022-04-14] MEDS ORDERED: STROKE PATIENT DISCHARGE STA (11:43)
--- NOTE | 2022-04-14 11:51 | Discharge Summary ---
Date of Service April 14, 2022 Admission HPI Per Admitting Provider A 57-year-old female with past medical history significant for type 2 diabetes on long-term insulin, hyperlipidemia, history of hypomagnesemia, history of obstructive sleep apnea on CPAP, history of hypertension, history of CAD, obesity, GERD, chronic kidney disease stage III, fibromyalgia, degenerative disc disease, macular degeneration both eyes, polyneuropathy, essential hemorrhagic thrombocythemia, history of duodenal ulcer, history of chronic posttraumatic stress disorder, history of nonadherence to medications, comes with stroke-like symptoms. 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 She seemed confused. Then her came and she sat in the chair for 15 minutes. Her sister came in and they took her to the [facility] where she says she stayed for 3 days and had three CAT scans. The CAT scans did not show anything, but they thought maybe she might have a TIA. She was started on aspirin and discharged. The patient says she also had some imbalance, but there was no weakness. She says she thinks she is still not back to normal. She still has some dullness and also she has word finding difficulty many times in a day. No difficulty swallowing. Has some runny nose, some cough. No fevers, no chest pain, no shortness of breath, no nausea, no abdominal pain. Normal bowel and bladder movements. No blood in stools or black stools. No hematuria, no swelling in the legs. She is complaining some slight on and off blurred visions. No earache. She has some left temporal headache on and off lasting short period of times. Currently, resting comfortably and hemodynamically stable.MRI scan done as out patient today showed subacute CVA Principal Diagnosis Subacute right frontal CVA Left ICA stenosis Hyperlipidemia UTI Discharge Exam Appears well, no acute distress, pleasant and comfortable Respiratory Breathing comfortably on room air, no wheezing/rhonchi/rales Cardiovascular Regular rate and rhythm, no murmurs/rubs/gallops Gastrointestinal (Abdomen) soft, non tender Neurologic awake, alert, mild dysarthria and speech finding difficulty, spontaneously moving all extremities Discharge Data Allergies Allergy/AdvReac Type Severity Reaction Status Date / Time No Known Allergies Allergy Verified 04/12/22 18:50 Consultations 04/12/22 19:08 ED Decision to Admit Stat 04/13/22 08:00 Consult Neurology Routine Ordered Studies 04/13/22 11:55 CTA head wo/w [CT angio head wo/w] Routine CTA neck with con [CT angio neck with con] Routine 04/13/22 22:10 US carotid doppler BI Routine Hospital Course (1) Acute CVA (cerebrovascular accident): (2) Carotid stenosis, left: (3) Speech abnormality: Plan Ms Lisa Miller is a 57 year old female with history of hyperlipidemia, hypertension, NIDD, ELIAS on home CPAP was sent in for stroke evaluation after outpatient MRI showed right subacute/acute CVA. Patient had carotid ultrasound which showed 60-69% stenosis of her left ICA. She also had a CTA head/neck which shows multifocal moderate to high-grade stenosis involving the distal portions of the bilateral posterior cerebral arteries. She had a TTE here which showed grade 1 diastolic dysfunction. She was started on aspirin, her atorvastatin was increased to 80mg daily. Her BP was well controlled on her home regimen. She was seen by Neurology, [employer], PT/OT while here. She was given a prescription for outpatient PT and [employer] for continued rehab. While here, she also complained of dysuria and UA suggests infection. She received 1 dose ceftriaxone here and then discharged on Cefpodoxime to finish a 5 day course. Her Urine culture was pending at discharge and she can follow up with her PCP for final culture result. She was instructed to follow up with her PCP for management of her obesity, diabetes, and HTN. Total Time Total Time Spent Total Time Spent (In Minutes): 35 Discharge Plan Discharge Items Patient Disposition: Home - Self-Care Reason For Visit: CVA Discharge Diagnosis: Subacute CVA UTI Activity: Resume your previous activity Non-emergency contact: Primary Care Provider Call non-emergency contact if: you have any medication questions Follow-up/Referrals: Venecia Villa, [Primary Care Provider] - Diet: Carb Consistent or DM2 and Heart Healthy Addtl Attending Provider Instructions: Please follow up with your PCP for management of your blood pressure, diabetes and hyperlipidemia You were diagnosed with a UTI. You received 1 dose of ceftriaxone here and will be discharged on Cefpodoxime 100mg twice daily for another 3 days. Please follow up with your PCP for results of your final urine culture You received a prescription for outpatient PT and Speech therapy Pending Studies at Discharge: Yes Studies:: Urine Culture Stand-Alone Forms: [facility], Smoking Cessation Medications and DC Order Prescriptions: New atorvastatin 40 mg Tablet 80 mg PO HS Qty: 30 1RF aspirin 81 mg Tablet,Delayed Release (Dr/Ec) 81 mg PO DAILY 30 Days Qty: 30 1RF cefpodoxime 100 mg tablet 100 mg PO BID 4 Days Qty: 8 0RF Rx Instructions: must administer with a meal/food Continued amlodipine [Norvasc] 5 mg Tablet 5 mg PO HS metformin 1,000 mg Tablet 1,000 mg PO BIDM duloxetine [Cymbalta] 30 mg Capsule,Delayed Release(Dr/Ec) 30 mg PO QAM Rx Instructions: TOTAL DOSE 90 MG--TAKES WITH 60 MG CAP. duloxetine 60 mg Capsule,Delayed Release(Dr/Ec) 60 mg PO QAM Rx Instructions: TOTAL DOSE 90 MG--TAKES WITH 30 MG CAP. carvedilol 6.25 mg tablet 6.25 mg PO AMHS repaglinide 2 mg tablet 2 mg PO QPM levothyroxine 75 mcg tablet 75 mcg PO DAILYBB lisinopril 10 mg tablet 10 mg PO QAM topiramate 50 mg tablet 50 mg PO AMHS Levemir FlexTouch U-100 Insuln 100 unit/mL (3 mL) insulin pen 80 unit SUBCUT BID diclofenac sodium 1 % Gel 2 g TOPICAL QID PRN (Reason: Pain) cholecalciferol (vitamin D3) [Vitamin D3] 50 mcg (2,000 unit) Capsule 50 mcg PO QAM Discontinued atorvastatin 40 mg Tablet 40 mg PO HS Discharge Orders: Discharge Order (Routine); Ordered 04/14/22 Ordered By: Ifeoma Duffy/Other Patient Handouts: Managing Type 2 Diabetes, How to Check Your Blood Sugar, Stroke: Taking Medicines, Discharge Instructions for Stroke Admission Data Admit Date/Time: 04/12/22 20:44 Attending Provider: Ifeoma Reeder Admit Provider: Marty Pierce Primary Care Provider: Venecia Villa Other Providers: Marty Pierce ; Natanael Green ; Foster Mistry ; Jolene Bee ; Carol Cowan ; Helder Lombardi ; Carol Beasley ; Bucky Bishop ; Liseth Moreno ; William Thomason ; Monica Bey ; Laurie Edwards ; Helder Cunha ; Anand Thomas
--- NOTE | 2022-04-14 21:39 | Electrocardiogram Report ---
Test Reason : Blood Pressure : / mmHG Vent. Rate : 095 BPM Atrial Rate : 095 BPM P-R Int : 158 ms QRS Dur : 078 ms QT Int : 396 ms P-R-T Axes : 053 023 073 degrees QTc Int : 497 ms Poor data quality, interpretation may be adversely affected Normal sinus rhythm Nonspecific ST and T wave abnormality Prolonged QT Abnormal ECG No previous ECGs available Confirmed by Benjie Coley ([id number]) on 04/14/2022 9:39:26 PM Referred By: Venecia Villa Confirmed By:Benjie Coley
--- NOTE | 2022-04-14 21:39 | Electrocardiogram Report ---
Test Reason : Blood Pressure : / mmHG Vent. Rate : 097 BPM Atrial Rate : 097 BPM P-R Int : 156 ms QRS Dur : 080 ms QT Int : 392 ms P-R-T Axes : 050 027 069 degrees QTc Int : 497 ms Poor data quality, interpretation may be adversely affected Normal sinus rhythm Nonspecific ST abnormality Prolonged QT Abnormal ECG No previous ECGs available Confirmed by Benjie Coley ([id number]) on 04/14/2022 9:39:13 PM Referred By: Venecia Villa Confirmed By:Benjie Coley
--- NOTE | 2022-04-16 10:02 | Pharmacy Report ---
Pharmacist Stroke Counseling - Date of Service April 16, 2022 - Scope: Pharmacy has been consulted to provide medication discharge counseling for this patient admitted with ischemic stroke as per the Pharmacist Discharge Counseling for Stroke Patients Protocol. - Medications on Discharge: Home Medications Medication Instructions Recorded Confirmed amlodipine 5 mg tablet (Norvasc) 5 mg PO HS 02/23/19 04/12/22 duloxetine 30 mg capsule,delayed 30 mg PO QAM 02/23/19 04/12/22 release (Cymbalta) duloxetine 60 mg capsule,delayed 60 mg PO QAM 02/23/19 04/12/22 release metformin 1,000 mg tablet 1,000 mg PO BIDM 02/23/19 04/12/22 carvedilol 6.25 mg tablet 6.25 mg PO AMHS 04/12/22 04/12/22 cholecalciferol (vitamin D3) 50 50 mcg PO QAM 04/12/22 04/12/22 mcg (2,000 unit) capsule (Vitamin D3) diclofenac sodium 1 % topical gel 2 g topical QID PRN Pain 04/12/22 04/12/22 insulin detemir U-100 100 unit/mL 80 unit subcut BID 04/12/22 04/12/22 (3 mL) subcutaneous pen (Levemir FlexTouch U-100 Insulin) levothyroxine 75 mcg tablet 75 mcg PO DAILYBB 04/12/22 04/12/22 lisinopril 10 mg tablet 10 mg PO QAM 04/12/22 04/12/22 repaglinide 2 mg tablet 2 mg PO QPM 04/12/22 04/12/22 topiramate 50 mg tablet 50 mg PO AMHS 04/12/22 04/12/22 New Rx's Medication Instructions Recorded aspirin 81 mg tablet,delayed 81 mg PO DAILY 30 days #30 tabs 04/14/22 release atorvastatin 40 mg tablet 80 mg PO HS #30 tabs 04/14/22 cefpodoxime 100 mg tablet 100 mg PO BID 4 days #8 tabs 04/14/22 - Action: The above medications, specifically ones for stroke treatment/prophylaxis, have been reviewed in detail with the patient and/or patient customer service representative teller(s) prior to discharge. This includes indication, common adverse reactions, drug interactions, and medication administration. Medication counseling has been employed using the teach-back method to ensure understanding. - Outcome: The patient and/or patient customer service representative teller(s) have demonstrated understanding of the medications. Additional comments: Patient demonstrated understanding of purpose and side effects of new medications and seemed comfortable with their use. Patient did not demonstrate any barriers to receiving care and stated she was able to obtain her new medications. The patient did not have any follow-up questions and was satisfied with the information provided. Thank you for allowing pharmacy to be involved in the care of this patient. Please call [phone] with any additional questions
== END 2022-04-14 13:56 | disposition home or self-care (01) | DRG 65 ==
LOC: ED 16:54 → 2S 20:44
DX: H35.30 Unspecified macular degeneration; N39.0 Urinary tract infection, site not specified; Z87.891 Personal history of nicotine dependence; E78.5 Hyperlipidemia, unspecified; I63.9 Cerebral infarction, unspecified; G47.33 Obstructive sleep apnea (adult) (pediatric); Z68.33 Body mass index [BMI] 33.0-33.9, adult; N18.30 Chronic kidney disease, stage 3 unspecified; M79.7 Fibromyalgia; E66.01 Morbid (severe) obesity due to excess calories; I25.10 Atherosclerotic heart disease of native coronary artery without angina pectoris; I65.22 Occlusion and stenosis of left carotid artery; Z79.84 Long term (current) use of oral hypoglycemic drugs; Z79.890 Hormone replacement therapy; F43.10 Post-traumatic stress disorder, unspecified; K21.9 Gastro-esophageal reflux disease without esophagitis; I12.9 Hypertensive chronic kidney disease with stage 1 through stage 4 chronic kidney disease, or unspecified chronic kidney disease; Z79.899 Other long term (current) drug therapy; G62.9 Polyneuropathy, unspecified; E11.22 Type 2 diabetes mellitus with diabetic chronic kidney disease; B96.4 Proteus (mirabilis) (morganii) as the cause of diseases classified elsewhere; Z79.82 Long term (current) use of aspirin

== ENCOUNTER 2024-02-06 05:27 | Inpatient (IN) ==
--- OUTSIDE RECORDS SUMMARY | 2024-02-06 05:33 | External Medical Summary | Summary of Care ---
Author Name Unknown Organization [facility] Address [address] [facility] [place] [address] Phone [phone] Care Team Providers Care Lawn Technician Name Role Phone Ace Connelly PA-C Primary Care Provide r Encounter Details Date Type Department Care Team (Late st Contact Info) Description 01/22/2024 Result Scan Unspecified Department <No scans attached> Allergies No known active allergiesdocumented as of this encounter (statuses as of 01/23/2024) Medications Medication Sig Dispensed Refills Start Date End Date Status Lancets 30GIndications:Type 2 diabetes mellitus with hemoglobin A1c goal of less than 7.0% ([facility]LY [facility]) Use to test blood sugar twice daily E 11.9 200 Each 3 04/09/2022 Active Acetaminophen 325 MG Oral Tablet (Tylenol) Take 2 Tablets by mouth every 6 hours as needed for Pain, Moderate. Active Aspirin 81 MG Oral Tablet Delayed Release Take 1 Tablet by mouth in the morning. Active busPIRone HCl 7.5 MG Oral Tablet (Buspar) Take 1 Tablet by mouth in the morning and 1 Tablet before bedtime. 09/16/2022 Active Estradiol 0.1 MG/GM Vaginal Cream (Estrace) Apply twice a week 08/19/2022 Active Sucralfate 1 GM/10ML Oral Suspension (Carafate) 09/17/2022 Active Lisinopril 40 MG Oral TabletIndications:Sta ge 3a chronic kidney disease (HCC),Proteinuria, unspecified type,HTN, goal below 140/90 Take 1 Tablet by mouth in the morning. 90 Tablet 3 12/04/2022 Active Contour Next EZ w/Device KitIndications:Type 2 diabetes mellitus with hemoglobin A1c goal of less than 7.0% ([facility]) Use as directed. 1 Kit 1 12/04/2022 Active fluvoxaMINE Maleate 50 MG Oral Tablet (Luvox) Take 1 Tablet by mouth in the morning. 11/23/2022 Active Unifine Pentips 31G X 8 MM (Insulin Pen Needle)Indications:Ty pe 2 diabetes mellitus with diabetic nephropathy, with long-term current use of insulin ([facility]),Gastroesophagea l reflux disease with esophagitis USE DIRECTED WITH INSULIN 200 Each 5 2023 5 Active Diclofenac Sodium 1 % External Gel (Voltaren) Apply topically to affected area 4 times a day as needed for Pain. 100 g 11 01/27/2023 Active Contour Next Test In Vitro Strip (Glucose Blood)Indications:Typ e 2 diabetes mellitus with hemoglobin A1c goal of less than 7.0% ([facility]) USE TO TEST BLOOD SUGARS TWO TIMES A DAY 200 Strip 3 04/10/2023 5 Active Microlet Lancets USE TO TEST BLOOD SUGAR TWO TIMES A DAY 200 Each 3 04/10/2023 5 Active Atorvastatin Calcium 80 MG Oral Tablet (Lipitor)Indications: Type 2 diabetes mellitus with hemoglobin A1c goal of less than 7.0% ([facility]),Type 2 diabetes mellitus with diabetic nephropathy, with long-term current use of insulin ([facility]),Dyslipidemia, goal LDL below 70 TAKE ONE TABLET BY MOUTH EVERY DAY 90 Tablet 3 04/24/2023 5 Active Additional Information Patient taking differently: Daily(AM), Reported on 10/30/2023 DULoxetine HCl 60 MG Oral Capsule Delayed Release Particles (Cymbalta)Indications :Chronic bilateral thoracic back pain,DDD (degenerative disc disease), cervical TAKE ONE CAPSULE BY MOUTH EVERY DAY DO NOT CRUSH, CUT OR CHEW 90 Capsule 3 05/19/2023 5 Active Topiramate 50 MG Oral Tablet (topAMAX)Indications: Cluster headache, not intractable, unspecified chronicity pattern TAKE ONE TABLET BY MOUTH IN THE MORNING AND ONE TABLET BEFORE BEDTIME 180 Tablet 2 06/10/2023 Active Additional Information Patient taking differently: 50 mg Oral Daily(AM), Reported on 09/26/2023 fluvoxaMINE Maleate 25 MG Oral Tablet (Luvox) Take 1 Tablet by mouth in the morning. 07/20/2023 Active Lactulose 10 GM/15ML Oral Solution (Constulose) Take 15 mL by mouth as needed. 06/03/2023 Active amLODIPine Besylate 2.5 MG Oral Tablet (Norvasc)Indications: HTN, goal below 140/90 Take 1 Tablet by mouth in the morning. 90 Tablet 3 08/08/2023 Active Levothyroxine Sodium 100 MCG Oral Tablet (Levoxyl)Indications: Acquired hypothyroidism Take 1 Tablet by mouth daily first thing in the morning. 90 Tablet 10/03/2023 Active Omeprazole 40 MG Oral Capsule Delayed Release (PriLOSEC)Indications :Acute gastritis without hemorrhage, unspecified gastritis type Take 1 Capsule by mouth in the morning and 1 Capsule before bedtime. 180 Capsule 1 10/03/2023 Active Escitalopram Oxalate 10 MG Oral Tablet (Lexapro) Take 1 Tablet by mouth in the morning. In the morning.. 90 Tablet 3 10/03/2023 Active Carvedilol 6.25 MG Oral Tablet (Coreg) Take 1 Tablet by mouth in the morning and 1 Tablet before bedtime. 90 Tablet 3 10/03/2023 Active metFORMIN HCl 1000 MG Oral Tablet (Glucophage)Indicatio ns:Obesity, morbid (more than 100 lbs over ideal weight or BMI > 40) ([facility]),Type 2 diabetes mellitus with hemoglobin A1c goal of less than 7.0% ([facility]),Need for prophylactic vaccination and inoculation against influenza,Type 2 diabetes mellitus with diabetic nephropathy, with long-term current use of insulin ([facility]),HTN, goal below 130/80,Dyslipidemia, goal LDL below 70,Gastroesophageal reflux disease with esophagitis,History of duodenal ulcer,Cataract of both eyes, unspecified cataract type,Chronic bilateral thoracic back pain,DDD (degenerative disc disease), cervical,LUE weakness,Acute pain of left shoulder,Morbid obesity due to excess calories ([facility]) TAKE ONE TABLET BY MOUTH TWICE A DAY WITH MORNING AND EVENING MEAL 180 Tablet 1 11/01/2023 Active Repaglinide 2 MG Oral Tablet (Prandin)Indications: Type 2 diabetes mellitus with hemoglobin A1c goal of less than 7.0% (HCC),DDD (degenerative disc disease), cervical TAKE ONE TABLET BY MOUTH IN THE EVENING 90 Tablet 1 11/01/2023 Active Touandreea Max SoloStar 300 UNIT/ML Subcutaneous Solution Pen-injector (Insulin Glargine (2 Unit Dial))Indications:Typ e 2 diabetes mellitus with hemoglobin A1c goal of less than 7.0% (HCC) Inject 100 Units under the skin at bedtime. 27 mL 3 11/07/2023 Active Dexcom G7 Conditioner Tender DeviceIndications:Typ e 2 diabetes mellitus with hemoglobin A1c goal of less than 7.0% ([facility]) Use as directed. 1 Each 11/07/2023 Active Dexcom G7 SensorIndications:Typ e 2 diabetes mellitus with hemoglobin A1c goal of less than 7.0% ([facility]) Replace Sensor Every 10 Days. 9 Each 3 11/07/2023 Active Myrbetriq 50 MG Oral Tablet Extended Release 24 Hour Take 1 Tablet by mouth in the morning. 30 Tablet 11 11/10/2023 Active Clopidogrel Bisulfate 75 MG Oral Tablet (pLAVix) Take 1 Tablet by mouth in the morning. 12/19/2023 Active Vitamin D 50 MCG (1999 UT) Oral CapsuleIndications:Vi tamin D deficiency Take 1 capsule by mouth in the morning. 100 Capsule 3 01/14/2024 Active Empagliflozin 10 MG Oral Tablet (Jardiance)Indication s:Type 2 diabetes mellitus with diabetic nephropathy, with long-term current use of insulin (HCC) Take 1 Tablet by mouth in the morning. 90 Tablet 3 01/14/2024 Active documented as of this encounter (statuses as of 01/23/2024) Active Problems Problem Noted Date Diagnosed Date Stage 3a chronic kidney disease 04/18/2023 Asymptomatic bilateral carotid artery stenosis 1 05/13/2022 Asymptomatic stenosis of left carotid artery Last Assessment & Plan: -Carotid ultrasound revealed left ICA stenosis of 50-69% however repeat CTA was obtained and opined that US was incorrectly read 2/2 shadowing, and NO SIGNIFICANT STENOSIS PRESENT BILATERALLY. -High dose statin therapy continued -Plavix was taken for 21 days, she is now off however continues on aspirin -Encouraged cardiac prudent diet Ischemic cerebrovascular accident (CVA) of front al lobe 05/31/2022 Last Assessment & Plan: -Confirmed via MRI with noted right frontal subacute area of infarct. -Aspirin and high statin therapy continued, Plavix therapy completed after 21 days. -BP controlled with lisinopril and is also taking carvedilol -PT/ST in place from [facility], states she has 1-2 visits left and then they advised she will be discharged (doing well). Has follow up with Neurology. Anxiety and depression 05/31/2022 Last Assessment & Plan: -Denies SI/HI or AV hallucination presently -Reports she has been on Cymbalta for years and this has always adequately helped with her depression. She states since stroke she has increase in depression and anxiety 2/2 post CVA effects. Feels the need for other medication. PCP did offer Buspirone however the patient not interested in this medication. Did discuss starting Lexapro but discussed with other medication she would have to be closely monitored and likely dose of Lexapro would not be increased higher than 10mg starting dose. She would like to try this anyway. -Lexapro 10mg daily sent to pharmacy. Updated PCP also via TT regarding medication addition. -Reviewed possible SE of drug, and advised to stop immediately if any thoughts of suicide or serious adverse reaction. Chronic diastolic heart failure 05/31/2022 Last Assessment & Plan: -Most recent ECHO with hyperdynamic LV function of >70%. Grade I diastolic dysfunction present (impaired relaxation) -Carvedilol, statin, aspirin and HTN management -No swelling. Encouraged diet low in sodium. Following with cardiology annually. Stage 3b chronic kidney disease 04/15/2022 Aphasia, post-stroke 04/15/2022 Atherosclerosis of [place] ronary artery without angina pectoris 01/24/2022 Essential hemorrhagic thrombocythemia 05/03/2021 Kidney disease, chronic, stage III (GFR 30-59 ml /min) 11/15/2019 Overview: Per CKD protocol ELIAS on CPAP 04/15/2018 HTN, goal below 140/90 03/18/2018 Macular degeneration of both eyes 03/06/2018 Diabetes mellitus with microalbuminuria 03/26/20 Cataract of both eyes 02/21/2017 Type 2 diabetes mellitus wit h hemoglobin A1c goal of less than 7.0% 02/21/2017 Type 2 diabetes mellitus wit h diabetic nephropathy, with long-term current use of insulin 02/21/2017 Last Assessment & Plan: -Most recent hemoglobin A1C noted to be 7.6% in April 2022 -Taking Levemir 80 units twice daily, Prandin 2mg at bedtime, and metformin 1GM BID -Recent labs with normal renal function Dyslipidemia, goal LDL below 70 02/21/2017 History of duodenal ulcer 02/21/2017 Chronic bilateral thoracic back pain 02/21/2017 DDD (degenerative disc disease), cervical 2016 Chronic post-traumatic stress disorder (PTSD) Fibromyalgia documented as of this encounter (statuses as of 01/23/2024) Resolved Problems Problem Noted Date Diagnosed Date Resolved Date Acute CVA (cerebrovascular accident) 04/30/2022 05/31/2022 Bilateral carotid artery stenosis 04/24/2022 05/31/2022 Hyperkalemia 04/15/2022 04/22/2022 Polyneuropathy 01/24/2022 01/24/2022 Polyneuropathy 01/24/2022 04/18/2023 Stage 3b chronic kidney disease 05/03/2021 05/23/2021 Hypomagnesemia 01/03/2021 04/22/2022 Nonadherence to medication 01/03/2021 0 07/05/2022 Hypotension 10/27/2019 01/03/2021 HTN, goal below 130/80 02/08/201910/26 Elevated alkaline phosphatase measurement 03/26/2017 10/27/2019 Thrombocytosis 03/26/2017 01/03/2021 Leukocytosis 03/26/2017 01/03/2021 Obesity, morbid (more than 1 00 lbs over ideal weight or BMI > 40) 02/21/2017 11/07/2022 HTN, goal below 130/80 02/21/201703/18 Gastroesophageal reflux dise ase with esophagitis 02/21/2017 09/26/2023 Screening for cardiovascular condition 02/21/2017 04/26/2017 Tachycardia 02/21/2017 04/26/2017 Cataract of both eyes 02/21/20172017 LUE weakness 02/21/2017 04/26/2017 Hernia of pelvic floor 04/07/200407/30 Macular degeneration 018 Cataract 02/21/2017 Overview: bilateral documented as of this encounter (statuses as of 01/23/2024) Immunizations Name Administration Dates Next Due COVID-19 mRNA, LNP-s, No Pre serve, 2-Dose Series (Pfizer) 03/16/2021,02/24/2021,06/24/2020,06/03 Hepatitis B, 20+ yrs 06/10/2019,02/08/2019,10/23 Pneumococcal Conjugate Vacc, 13 Valent (Prevnar) 02/17/2015 Pneumococcal Polysaccharide PPV23 (Pneumovax) 02/21/2017 Seasonal Influenza Virus Vac cine, Unspecified Formulation 02/04/2023,12/27/2020,12/28/2019,02/08,03/06/2018 Seasonal Influenza, PF, 6 M & above, IM , (FluLaval or Fluzone) 02/04/2023,12/19/2021,12/27/2020,12/27,02/08/2019,03/06/2018,02/21/2017 TDAP (age 10 and older)(Boostrix) 11/05/2010 Varicella Zoster Vaccine (Adult) 04/15/2017 Zoster Vaccine Recombinant (Shingrix) 05/03/2021 ,12/28/2019 documented as of this encounter Social History Tobacco Use Types Packs/Day Years Used Date Smoking Tobacco: Former Cigarettes 1 23 1 05/08/1985 - 03/07/2009 Smokeless Tobacco: Never Alcohol Use Standard Drinks/Week Comments No 0 (1 standard drink = 0.6 oz pur e alcohol) PHQ-2 Answer Date Recorded PHQ Adult Total Score 0 12/19/2021 Hunger Vital Sign Answer Date Recorded Within the past 12 months, y ou worried that your food would run out before you got the money to buy more. Never true 08/29/19 24 Within the past 12 months, t he food you bought just didn't last and you didn't have money to get more. Never true 08/29/2023 Childcare Answer Date Recorded Do you feel overwhelmed with taking care of a child, family member or friend? No 08/29/2023 Does your family need help f inding childcare? (Household - for ages 0-17 years) Not on file 08/29/2023 Clothing Answer Date Recorded Have you been unable to get clothing when it was really needed? No 08/29/2023 Is your family able to get c lothes or diapers when needed? (Household - for ages 0-17 years) Not on file 08/29/2023 Personal Safety Answer Date Recorded Do you feel unsafe or have concerns for your saf ety? No 08/29/2023 Do you have concerns for you r family's safety? (Household - for ages 0-17 years) Not on file 08/29/2023 Utilities Answer Date Recorded Do you have trouble paying y our heating, water, or electric bill? No 08/29/2023 Is your family able to pay t he heat, water, or electric bill? (Household - for ages 0-17 years) Not on file 08/29/2023 Does your family have access to good internet? (Household - for ages 0-17 years) Not on file 08/29/2023 Employment Status Answer Date Recorded Are you unemployed or without regular income? No 08/29/2023 Does the household have a [facility] source of income? (Household - for ages 0-17 years) Not on file 08/29/2023 Social Connections Answer Date Recorded How often do you feel lonely or isolated from th ose around you? Often 08/29/2023 Financial Resource Strain Answer Date R ecorded Do you have any trouble payi ng for your medications, or do you think you might in the future? No 08/29/2023 Does your family have troubl e paying for medicine? (Household - for ages 0-17 years) Not on file 08/29/2023 Transportation Needs Answer Date Record ed READ ONLY Do you have troubl e getting a ride to medical visits or work? Never True 08/29/2023 Does your family have a hard time getting a ride to doctors visits? (Household - for ages 0-17 years) Not on file 08/29/2023 Has lack of transportation k ept you from medical appointments, meetings, work, or from getting things needed for daily living? Check all that apply. (Adult - for ages 18 years and over) Not on file 08/29/2023 Do you (or your family) have trouble finding or paying for a ride (transportation)? (Household - for ages 0-17 years) Not on file 08/29/2023 Housing Stability Answer Date Recorded Do you currently live in a s helter or have no steady place to sleep at night? No 08/29/2023 READ ONLY Do you think you a re at risk of becoming homeless? No 08/29/2023 Does your family worry about paying for your home or becoming homeless? (Household - for ages 0-17 years) Not on file 0 08/29/2023 Are you homeless or worried that you might be in the future? (Adult - for ages 18 years and over) Not on file Are you (or your family) obie eless or worried that you might be in the future? (Household - for ages 0-17 years) Not on file Food Insecurity Answer Date Recorded Do you need food for this week? No 08/29/2023 Are you able to get enough f ood for your family? (Household - for ages 0-17 years) Not on file 08/29/2023 Does your family need food t his week? (Household - for ages 0-17 years) Not on file 08/29/2023 Do you always have enough fo od for your family? (Household - for ages 0-17 years) Not on file 08/29/2023 Sex and Gender Information Value Date Recorded Sex Assigned at Female 01/02/2021 5:12 PM EDT Gender Identity Female 01/02/2021 5:12 PM EDT Sexual Orientation Straight 01/02/2021 5: 12 PM EDT Job Start Date Occupation Industry Not on file Not on file Not on file documented as of this encounter Plan of Treatment Upcoming Encounters Date Type Department Care Team (Late st Contact Info) Description 02/05/2024 1:00 PM EDT [facility] [place] [id number] [address] [facility] [place] [address] 02/20/2024 2:00 PM EST Telemedicine Pharmacy, [facility] [address] [facility] [place] [address] Pharmacist2, [facility] [address] [facility] [place] [address] 05/05/2024 11:20 AM EST Office Visit Nephrology, [facility] [address] [facility] [place] [address] Maico Claros MD [address] [facility] [place] [address] 07/05/2024 12:00 PM EDT Imaging Radiology [address], [place] [address] [facility] [place] [address] 07/19/2024 2:20 PM EDT Office Visit Family Practice [address] [place] [address] Ace Connelly PA-C [address] [place] [address] Scheduled Procedures Name Priority Associated Diagnoses Date/Ti me COLONOSCOPY FLEXIBLE PROXIMA L DIAGNOSTIC Recall Special screening for malignant neoplasms, colon Health Maintenance Due Date Last Done Comments Cologuard 01/07/2008 Fecal Occult Blood Test 01/07/2008 Sigmoidoscopy 01/07/2008 Diabetic Foot Exam 04/02/2019 04/02/2018, 03/26/2017 DTap/Tdap Vaccines (2 - Td or Tdap) 11/05/2020 11/05/2010 Depression Monitoring 12/19/2022 12/19/2021 CKD PHOS USE SMARTSET 01167 04/24/202304/07, 05/16/2021, 11/05/2019, Additional history exists COVID-19 Vaccine ( season) 2023 03/16/2021, 02/24/2021, 06/24/2020, Additional history exists Influenza Vaccine (FLU shot) (#1) 2023 02/04/2023, 02/04/2023, 12/19/2021, Additional history exists Diabetic Eye Exam 05/12/2024 05/12/2023, , 03/13/2023, Additional history exists Mammogram 07/03/2024 07/04/2023, 06/06, 06/25/2022, Additional history exists GFR 07/08/2024 01/08/2024, 07/06, 04/14/2023, Additional history exists HbA1c 07/08/2024 01/08/2024, 07/07, 04/14/2023, Additional history exists Albumin/Creatinine Ratio 01/07/2025 024, 08/06/2022, 04/24/2022, Additional history exists B-12 01/07/2025 01/08/2024, 01/05, 05/03/2021, Additional history exists CKD HGB USE SMARTSET 58852 01/07/202501/07, 01/08/2024, 04/14/2023, Additional history exists TSH 01/07/2025 01/08/2024, 07/07, 04/14/2023, Additional history exists Pneumococcal Vaccine: Pediatrics (0 to 5 Years) and At-Risk Patients (6 to 64 Years) (3 of 3 - PPSV23 or PCV20) 01/07/2028 02/21/2017, 02/17/2015 Colonoscopy 09/27/2032 09/27/2022, 09/27/2022 Colorectal Cancer Screening 09/27/2032 Hepatitis B Vaccine Completed 06/10/2019, 02/08/2019, 10/23/2018 Zoster Vaccines Completed 05/03/2021, 12/07, 04/15/2017 Lung Cancer Screening Completed 08/08/2023, 022 HIV Screening Discontinued HPV (Gardasil) Vaccine Aged Out No lo nger eligible based on patient's age to complete this topic MENINGOCOCCAL (MENACTRA/MENVEO) Aged Out No longer eligible based on patient's age to complete this topic documented as of this encounter Medical Devices Not on filedocumented as of this encounter Procedures Procedure Name Priority Date/Time Associated Diagnosis Comments PROCEDURE SCANNED RESULT 01/22/2024 documented in this encounter Results * PROCEDURE SCANNED RESULT (01/22/2024) 01/22/2024 No Physician Data Unknown SURGERY documented in this encounter Care Teams Lawn Technician Relationship Specialty Start Date End Date Ace Connelly PA-C [address] [facility] [place] [address] PCP - General Physician Barrel Raiser Helper 02/28/23 documented as of this encounter
[2024-02-06 06:40] LABS: Basophils # (auto) 0.06 K/uL (0.00-0.20); Basophils % (auto) 0.3 %; Eosinophils # (auto) 0.22 K/uL (0.00-0.50); Eosinophils % (auto) 1.2 %; Hemoglobin 11.4 g/dl (12.0-16.0); Immature Granulocytes % (auto) 0.5 %; Lymphocytes # (auto) 2.63 K/uL (1.20-3.40); Lymphocytes % (auto) 14.1 %; Mean Corpuscular Hemoglobin 28.6 pg (25.0-34.0); Mean Corpuscular Hgb Conc 31.7 g/dL (32.0-36.0); Mean Corpuscular Volume 90.5 fL (80.0-100.0); Mean Platelet Volume 10.1 fL (9.4-12.4); Monocytes # (auto) 1.28 K/uL (0.11-0.59); Monocytes % (auto) 6.9 %; Neutrophils # (auto) 14.34 K/uL (1.40-6.50); Platelet Count 415 K/uL (130-400); RDW Coefficient of Variation 14.1 % (11.5-14.5); RDW Standard Deviation 47.1 fL (36.4-46.3); Red Blood Count 3.98 M/uL (4.20-5.40); White Blood Count 18.63 K/ul (4.8-10.8)
[2024-02-06 06:55] LABS: Alanine Aminotransferase 11 U/L (7-52); Albumin Globulin Ratio 1.2 (0.9-2); Albumin Level 3.8 gm/dl (3.4-5.0); Alkaline Phosphatase 96 U/L (34-104); Anion Gap 10 (3-11); Aspartate Aminotransferase 13 U/L (13-39); Bilirubin,Total 0.3 mg/dl (0.2-1.0); Blood Urea Nitrogen 45 mg/dl (6-23); Calcium 9.5 mg/dl (8.6-10.3); Carbon Dioxide 24 mmol/L (21-32); Chloride 107 mmol/L (98-107); Creatinine Clr Calc Pharmacy 40.6 ml/min; Globulin 3.1 gm/dl (2.5-4.0); Glucose 157 mg/dl (70-99(Fasting)); Potassium 3.9 mmol/L (3.5-5.1); Sodium 141 mmol/L (136-145); Total Protein 6.9 gm/dl (6.0-8.3)
[2024-02-06 07:19] LABS: Magnesium 1.2 mg/dl (1.7-2.4)
[2024-02-06 07:29] LABS: Troponin I High Sensitivity 24.6 pg/ml (0-14)
[2024-02-06 07:38] LABS: Thyroid Stimulating Hormone 3.698 uIu/ml (0.300-4.500)
[2024-02-06 07:42] LABS: Appearance Urine Clear (Clear); Bacteria Urine Automated None Seen (None Seen); Bilirubin Urine Negative (Negative); Blood Urine Negative (Negative); Color Urine Yellow; Glucose Urine UA 3+ (Negative); Ketones Urine Negative (Negative); Leukocyte Esterase Urine 1+ (Negative); Nitrite Urine Negative (Negative); Protein Urine 1+ (Negative); RBC Urine Automated 0-2 /hpf (0-2); Specific Gravity Urine 1.026 (1.000-1.030); Urobilinogen Urine Negative (Negative); WBC Urine Automated 21-50 /hpf (0-5); pH Urine 5.5 (4.5-7.5)
[2024-02-06] MEDS: SODIUM CHLORIDE 0.9% 1,000 ML IV ONE ×2 (07:45→10:04)
[2024-02-06] MEDS: cefTRIAXone SODIUM 2,000 MG/50 ML BAG IV STA (07:46)
[2024-02-06] MEDS: MAGNESIUM SULFATE / D5W 1 GM/100 ML BAG IV SCH (08:08)
[2024-02-06 08:46] LABS: Adenovirus PCR Not Detected (NotDetected); Bordetella parapertussis PCR Not Detected (NotDetected); Bordetella pertussis PCR Not Detected (NotDetected); Chlamydia pneumoniae PCR Not Detected (NotDetected); Coronavirus 229E PCR Not Detected (NotDetected); Coronavirus CoV-2 (COVID19)PCR Not Detected (NotDetected); Coronavirus HKU1 PCR Not Detected (NotDetected); Coronavirus NL63 PCR Not Detected (NotDetected); Coronavirus OC43PCR Not Detected (NotDetected); Human Metapneumovirus PCR Not Detected (NotDetected); Influenza A PCR Not Detected (NotDetected); Influenza B PCR Not Detected (NotDetected); Mycoplasma pneumoniae PCR Not Detected (NotDetected); Parainfluenza Virus 1 PCR Not Detected (NotDetected); Parainfluenza Virus 2 PCR Not Detected (NotDetected); Parainfluenza Virus 3 PCR Not Detected (NotDetected); Parainfluenza Virus 4 PCR Not Detected (NotDetected); Respiratory Syncytial VirusPCR Not Detected (NotDetected); Rhinovirus/Enterovirus PCR Not Detected (NotDetected)
--- NOTE | 2024-02-06 08:46 | XRay Report ---
XR chest 1V portable HISTORY: 59 years-old Female weakness COMPARISON: 04/12/2022 TECHNIQUE: AP view of the chest FINDINGS: Heart is upper limits of normal in size. Mild bibasilar opacities. No pneumothorax or pleural effusio n. Bones appear grossly intact. IMPRESSION: Mild bibasilar opacities may be secondary to summation density versus airspace disease. F indings could be correlated with PA and lateral views of the chest. ACT 112: Negative or not required by law. The above report was generated using voice recognition software. It may contain grammatical, syntax o r spelling errors. Electronically signed by: Rohan Bonner M.D. 02/06/2024 8:03 AM
[2024-02-06 09:19] LABS: C Reactive Protein < 0.50 mg/dl (0-0.5)
--- NOTE | 2024-02-06 09:21 | Emergency Department Note ---
Impression & Plan Hypoglycemia, AMS (altered mental status) ED Provider Note CHIEF COMPLAINT: Altered mental status HISTORY OF PRESENT ILLNESS: This 59-year-old female patient past medical history of type II2 diabetes, chronic kidney disease, hypothyroidism, history of stroke, obesity, recurrent UTI, sleep apnea, hypertension, hyperlipidemia PTSD, fibromyalgia presents to the emergency department after her daughter called EMS. Patient woke up her daughter earlier this morning stating something was wrong, which she did not know what was happening. Patient had repetitive statements. She has a history of stroke. EMS was contacted and blood sugar was 31 on their arrival. patient was given 1 L of D10 with improvement. The patient states she has not been wearing her Dexcom meter for the last 2 weeks. She states she has been under a great deal of stress as her son was arrested. She has not heard from him in 3 days. She denies any fevers, chest pain, shortness of breath or belly pain. She denies any difficulty with urination. She denies any recent falls or head injuries. REVIEW OF SYSTEMS: A review of systems was performed with positives and pertinent negatives listed in the history of present illness. 10 systems were reviewed and are otherwise negative. ALLERGIES: see below MEDICATIONS: see below PMH: see below SOCIAL HISTORY: see below DDx: Stroke, intracranial hemorrhage, intracranial mass, seizure, UTI, sepsis, viral etiology, hypometabolic abnormality, dehydration, among others. PHYSICAL EXAM: Vital signs reviewed. General: Chronically ill-appearing 59-year-old female, in no significant distress. HEENT: No scleral icterus, PERRLA, neck supple. moist mucous membranes Cardiovascular: Regular rate and rhythm, no extra sounds. Pulmonary: Clear to auscultation bilaterally, normal work of breathing. Abdomen: Soft, obese, nontender, nondistended, positive bowel sounds. Musculoskeletal: Atraumatic, no peripheral edema. Neurologic: Patient awake alert and oriented x 3, speech is clear Skin: Warm, dry, no rash EMERGENCY DEPARTMENT COURSE/MDM: This patient was evaluated and appeared to be in no significant distress. IV access was obtained and laboratory work was drawn. The patient was placed on the environmental monitoring technician noted to be in normal sinus rhythm. Patient's blood glucose remains stable at 159. Patient was hydrated with normal saline solution due to mild hypotension and tachycardia. The patient has been under a great deal of stress lately and has been ignoring her health care. Head CT was performed and reveals no evidence of acute intracranial pathology. Patient's laboratory work reveals an elevated WBC, which the patient states is chronic. It does appear in review of the patient's records that her last several WBCs have been within normal limits, but was elevated previously. UA significant for infection will be sent for culture. IV ceftriaxone was administered. Laboratory work reveals an elevated troponin 24- >54. Lactate of 2.6. Case was discussed with the hospitalist service, Dr. Hannon for admission and further management. Patient and daughter were made aware of the plan and agreed. MONITORING: An order for cardiac monitoring was placed and the patient is noted to be in a normal sinus rhythm at 95 beats per minute. RADIOLOGY: CT of the head per radiology reveals no evidence of acute intracranial abnormality. Chest x-ray to my interpretation reveals no evidence of acute process. EKG: to my interpretation reveals a normal sinus rhythm at 90 bpm. QTc of 464, normal ST segments. No PVC, no PAC. DISPOSITION: Admission Past Med/Surg History Problem List (Updated 02/07/24 @ 14:00 by Anisa Daniels MD) AMS (altered mental status) (Acute) Hypoglycemia (Acute) Acute kidney injury Altered mental status Abdominal pain Gastritis Word finding difficulty CKD (chronic kidney disease), stage III Insulin dependent type 2 diabetes mellitus Weakness (Acute) H/O umbilical hernia repair (Acute 12/18/22) Robotic Assisted Ventral Hernia Repair With Mesh (4 x 3 cm), robotic umbilical Hernia Repair(primary, 1.5 cm) - Anand Cervantes DO, FACS H/O ventral hernia repair (12/18/22) Robotic Assisted Ventral Hernia Repair With Mesh (4 x 3 cm), robotic umbilical Hernia Repair(primary, 1.5 cm) - Anand Cervantes DO, FACS Hypothyroid History of stroke apr 06 2022/writing is shaky and can't find word sometimes. Therapy completed and resolved most. Obese Diabetes mellitus Recurrent UTI Carotid stenosis, left misinterpretated per pt Acute CVA (cerebrovascular accident) (Acute) Carpal tunnel syndrome, right Cervical radicular pain Encounter for pre-operative examination Fibromyalgia Post traumatic stress disorder Hx of migraines Hypertension Hyperlipidemia Sleep apnea BIPAP/haven't used it in yrs. Medical History History of COVID-19 approx 2021 Gastroparesis suspected, no official dx at current. Sleep apnea hx bipap, no use in yrs. Recurrent UTI most recent end of August 2023 - abx tx completed and no current s/s. PTSD (post-traumatic stress disorder) Hypothyroid Hyperlipidemia HTN (hypertension) Gastritis Fibromyalgia Chronic kidney disease stage 3 Diabetes Femoral artery stenosis, left moderate Femoral artery stenosis, right mild Carotid stenosis monitors History of migraine headaches History of stroke 03/2022 - residual: speech impairment, difficult with word finding, left side mild weakness and altered use of left hand. Anxiety Generalized headaches Overactive bladder Vomiting ongoing 25 +yrs/unknown etiology Erosion, teeth ongoing episodes of vomiting Stress incontinence Urge incontinence Hx of duodenal ulcer Depression Surgical History History of right inguinal hernia repair (2022) and umbilical at same time. History of left cataract surgery Hx of right cataract extraction History of cardiac cath approx 2020 or 2021, done due to diabetes...[facility]/no findings. H/O colonoscopy Nausea and vomiting after administration of anesthetic agent severe History of gynecologic surgery uterine ablation H/O total hysterectomy History of bilateral tubal ligation Status post de Quervain's release surgery hx , left History of repair of rotator cuff left & right History of esophagogastroduodenoscopy (EGD) History of herniorrhaphy left inguinal x3. History of cholecystectomy History of tooth extraction Family History Mother , age 56 of lung cancer Family history of diabetes mellitus Lung cancer Father , age 76 of COPD COPD (chronic obstructive pulmonary disease) Grandmother (Paternal) Family history of diabetes mellitus Grandmother (Maternal) Family history of diabetes mellitus Sister Breast cancer Diabetes Hypertension Sister Breast cancer Hypertension Sister Cancer Social History Smoking Status: Never smoker Tobacco Type: Cigarettes Age Started Using Tobacco: 21; Age Quit Using Tobacco: 44; Second Hand Exposure: No; Do You Dip or Chew Tobacco: No; Hx Alcohol Use: No Hx Substance Use: No Preferred Language: Indian Communication Ability: Effective Communication Ability Comment: speech impairment , hx stroke - communication effective. 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 [employer] How many Children do You have: 3 Other Information That Helps Us Care for You: No Feels Safe at Home: Yes Safety Concerns: Feels Safe At This Time Diet: regular during the past year weight has: decreased > 10 lbs Assistive Devices: None Allergies Allergies Allergy/AdvReac Type Severity Reaction Status Date / Time No Known Allergies Allergy Verified 01/22/24 11:18 Home Meds Home Medications Medication Instructions Recorded Confirmed duloxetine 60 mg capsule,delayed 60 mg PO QPM 02/23/19 02/06/24 release (Cymbalta) metformin 1,000 mg tablet 1,000 mg PO BID 02/23/19 02/06/24 diclofenac sodium 1 % topical gel 2 g topical QID PRN Pain 04/12/22 02/06/24 repaglinide 2 mg tablet 2 mg PO HS 04/12/22 02/06/24 acetaminophen 325 mg capsule 325 mg PO UD PRN Pain 09/18/22 02/06/24 cholecalciferol (vitamin D3) 50 50 mcg PO QPM 09/18/22 02/06/24 mcg (2,000 unit) capsule (Vitamin D3) atorvastatin 80 mg tablet 80 mg PO HS 01/27/23 02/06/24 fluvoxamine 25 mg tablet See Rx Instructions .Route .COMPLEX 01/27/23 02/06/24 aspirin 81 mg tablet,delayed 81 mg PO QPM 06/01/23 02/06/24 release omeprazole 40 mg capsule,delayed 40 mg PO BID 08/26/23 02/06/24 release topiramate 50 mg tablet (Topamax) 50 mg PO BID 09/03/23 02/06/24 insulin glargine U-300 conc 300 60 unit subcut QPM 12/19/23 02/06/24 unit/mL (1.5 mL) subcutaneous pen (Chucky SolAiar U-300 Insulin) amlodipine 2.5 mg tablet 2.5 mg PO QAM 02/06/24 02/06/24 buspirone 7.5 mg tablet 0 mg PO TID 02/06/24 02/06/24 fluvoxamine 50 mg tablet See Rx Instructions .Route .COMPLEX 02/06/24 02/06/24 levothyroxine 100 mcg tablet 100 mcg PO QAM 02/06/24 02/06/24 oxybutynin chloride 5 mg 0 mg PO QAM 02/06/24 02/06/24 tablet,extended release 24 hr polyethylene glycol 3350 17 17 g PO DAILY PRN Constipation 02/06/24 02/06/24 gram/dose oral powder (Miralax) Previous Rx's Medication Instructions Recorded clopidogrel 75 mg tablet (Plavix) 75 mg PO DAILY #30 tabs 12/19/23 Results & Data (ED) Vital Signs Vital Signs - 24 hr 02/06/24 05:35 02/06/24 05:49 02/06/24 06:04 Temperature 36.4 C L Temperature Source Oral Pulse Rate 99 H 97 H Pulse Rate [Apical] 95 H Respiratory Rate 16 14 Respiratory Effort / Characteristics Non-Labored Non-Labored Respiratory Depth Normal Normal Respiratory Pattern Regular Regular Blood Pressure 145/57 H Blood Pressure [Right Arm] 112/57 L Blood Pressure Mean 86 Blood Pressure Mean [Right Arm] 75 Pulse Oximetry 95 93 Oxygen Delivery Method Room Air Room Air Sepsis Recent Fever Within 48 Hours No Sepsis New/Unexplained Change in Mental Status No Sepsis Action Taken by Nursing No Action Required 02/06/24 06:30 02/06/24 06:53 Temperature Temperature Source Pulse Rate Pulse Rate [Apical] Respiratory Rate Respiratory Effort / Characteristics Respiratory Depth Respiratory Pattern Blood Pressure Blood Pressure [Right Arm] 96/56 L Blood Pressure Mean Blood Pressure Mean [Right Arm] 69 Pulse Oximetry 94 90 Oxygen Delivery Method Room Air Sepsis Recent Fever Within 48 Hours Sepsis New/Unexplained Change in Mental Status Sepsis Action Taken by Skilled Nursing Medications Current Medication List: was personally reviewed by me Laboratory Data Attestation: I reviewed the patient's lab results. 02/07/24 05:15 02/07/24 05:15 Lab Results 02/06/24 02/06/24 02/06/24 Range/Units 05:40 05:46 05:49 WBC 18.63 H (4.8-10.8) K/ul RBC 3.98 L (4.20-5.40) M/uL Hgb 11.4 L (12.0-16.0) g/dl Hct 36.0 L (37.0-47.0) % MCV 90.5 (80.0-100.0) fL MCH 28.6 (25.0-34.0) pg MCHC 31.7 L (32.0-36.0) g/dL RDW Std Deviation 47.1 H (36.4-46.3) fL RDW Coeff of Lucius 14.1 (11.5-14.5) % Plt Count 415 H (130-400) K/uL MPV 10.1 (9.4-12.4) fL Immature Gran % (Auto) 0.5 % Neut % (Auto) 77.0 % Lymph % (Auto) 14.1 % Reagan % (Auto) 6.9 % Eos % (Auto) 1.2 % Baso % (Auto) 0.3 % Neut # (Auto) 14.34 H (1.40-6.50) K/uL Lymph # (Auto) 2.63 (1.20-3.40) K/uL Reagan # (Auto) 1.28 H (0.11-0.59) K/uL Eos # (Auto) 0.22 (0.00-0.50) K/uL Baso # (Auto) 0.06 (0.00-0.20) K/uL Immature Gran # (Auto) 0.10 (0.01-0.20) K/uL Sodium 141 (136-145) mmol/L Potassium 3.9 (3.5-5.1) mmol/L Chloride 107 (98-107) mmol/L Carbon Dioxide 24 (21-32) mmol/L Anion Gap 10 (3-11) BUN 45 H (6-23) mg/dl Creatinine 1.50 H (0.6-1.2) mg/dl Est Cr Clr Drug Dosing 40.6 ml/min eGFR 39.40 BUN/Creatinine Ratio 30.0 H (10-20) Glucose 157 H (70-99(Fasting)) mg/dl POC Glucose 159 H (70-99) mg/dl Lactate (0.4-2.0) mmol/L Calcium 9.5 (8.6-10.3) mg/dl Magnesium 1.2 L (1.7-2.4) mg/dl Total Bilirubin 0.3 (0.2-1.0) mg/dl AST 13 (13-39) U/L ALT 11 (7-52) U/L Alkaline Phosphatase 96 (34-104) U/L Troponin I High Sens 24.6 H (0-14) pg/ml C-Reactive Protein < 0.50 (0-0.5) mg/dl Total Protein 6.9 (6.0-8.3) gm/dl Albumin 3.8 (3.4-5.0) gm/dl Globulin 3.1 (2.5-4.0) gm/dl Albumin/Globulin Ratio 1.2 (0.9-2) Procalcitonin 0.05 (0-0.5) ng/ml TSH 3.698 (0.300-4.500) uIu/ml Urine Color Yellow Urine Appearance Clear (Clear) Urine pH 5.5 (4.5-7.5) Ur Specific Anza 1.026 (1.000-1.030) Urine Protein 1+ H (Negative) Urine Glucose (UA) 3+ H (Negative) Urine Ketones Negative (Negative) Urine Blood Negative (Negative) Urine Nitrite Negative (Negative) Urine Bilirubin Negative (Negative) Urine Urobilinogen Negative (Negative) Ur Leukocyte Esterase 1+ H (Negative) Urine WBC (Auto) 21-50 H (0-5) /hpf Urine RBC (Auto) 0-2 (0-2) /hpf U Hyaline Cast (Auto) 3-5 H (0-2) /lpf U Epithel Cells (Auto) 3-5 H (0-2) /hpf Urine Bacteria (Auto) None Seen (None Seen) Ur Random Creatinine 116.1 mg/dl Ur Random Sodium 83 mmol/L Adenovirus (PCR) (NotDetected) B. pertussis DNA (PCR) (NotDetected) B.parapertussis DNA PCR (NotDetected) C. pneumoniae DNA (PCR) (NotDetected) Coronavirus OC43 (PCR) (NotDetected) Coronavirus HKU1 (PCR) (NotDetected) Coronavirus 229E (PCR) (NotDetected) SARS-CoV-2 (PCR) (NotDetected) Coronavirus NL63 (PCR) (NotDetected) Human Metapneumovir PCR (NotDetected) Influenza Type A (PCR) (NotDetected) Influenza Type B (PCR) (NotDetected) M. pneumoniae (PCR) (NotDetected) Parainfluenza 1 (PCR) (NotDetected) Parainfluenza 2 (PCR) (NotDetected) Parainfluenza 3 (PCR) (NotDetected) Parainfluenza 4 (PCR) (NotDetected) RSV (PCR) (NotDetected) Entero/Rhino (PCR) (NotDetected) 02/06/24 02/06/24 Range/Units 07:24 08:14 WBC (4.8-10.8) K/ul RBC (4.20-5.40) M/uL Hgb (12.0-16.0) g/dl Hct (37.0-47.0) % MCV (80.0-100.0) fL MCH (25.0-34.0) pg MCHC (32.0-36.0) g/dL RDW Std Deviation (36.4-46.3) fL RDW Coeff of Lucius (11.5-14.5) % Plt Count (130-400) K/uL MPV (9.4-12.4) fL Immature Gran % (Auto) % Neut % (Auto) % Lymph % (Auto) % Reagan % (Auto) % Eos % (Auto) % Baso % (Auto) % Neut # (Auto) (1.40-6.50) K/uL Lymph # (Auto) (1.20-3.40) K/uL Reagan # (Auto) (0.11-0.59) K/uL Eos # (Auto) (0.00-0.50) K/uL Baso # (Auto) (0.00-0.20) K/uL Immature Gran # (Auto) (0.01-0.20) K/uL Sodium (136-145) mmol/L Potassium (3.5-5.1) mmol/L Chloride (98-107) mmol/L Carbon Dioxide (21-32) mmol/L Anion Gap (3-11) BUN (6-23) mg/dl Creatinine (0.6-1.2) mg/dl Est Cr Clr Drug Dosing ml/min eGFR BUN/Creatinine Ratio (10-20) Glucose (70-99(Fasting)) mg/dl POC Glucose (70-99) mg/dl Lactate 2.6 H* (0.4-2.0) mmol/L Calcium (8.6-10.3) mg/dl Magnesium (1.7-2.4) mg/dl Total Bilirubin (0.2-1.0) mg/dl AST (13-39) U/L ALT (7-52) U/L Alkaline Phosphatase (34-104) U/L Troponin I High Sens 54.1 H* D (0-14) pg/ml C-Reactive Protein (0-0.5) mg/dl Total Protein (6.0-8.3) gm/dl Albumin (3.4-5.0) gm/dl Globulin (2.5-4.0) gm/dl Albumin/Globulin Ratio (0.9-2) Procalcitonin (0-0.5) ng/ml TSH (0.300-4.500) uIu/ml Urine Color Urine Appearance (Clear) Urine pH (4.5-7.5) Ur Specific Anza (1.000-1.030) Urine Protein (Negative) Urine Glucose (UA) (Negative) Urine Ketones (Negative) Urine Blood (Negative) Urine Nitrite (Negative) Urine Bilirubin (Negative) Urine Urobilinogen (Negative) Ur Leukocyte Esterase (Negative) Urine WBC (Auto) (0-5) /hpf Urine RBC (Auto) (0-2) /hpf U Hyaline Cast (Auto) (0-2) /lpf U Epithel Cells (Auto) (0-2) /hpf Urine Bacteria (Auto) (None Seen) Ur Random Creatinine mg/dl Ur Random Sodium mmol/L Adenovirus (PCR) Not Detected (NotDetected) B. pertussis DNA (PCR) Not Detected (NotDetected) B.parapertussis DNA PCR Not Detected (NotDetected) C. pneumoniae DNA (PCR) Not Detected (NotDetected) Coronavirus OC43 (PCR) Not Detected (NotDetected) Coronavirus HKU1 (PCR) Not Detected (NotDetected) Coronavirus 229E (PCR) Not Detected (NotDetected) SARS-CoV-2 (PCR) Not Detected (NotDetected) Coronavirus NL63 (PCR) Not Detected (NotDetected) Human Metapneumovir PCR Not Detected (NotDetected) Influenza Type A (PCR) Not Detected (NotDetected) Influenza Type B (PCR) Not Detected (NotDetected) M. pneumoniae (PCR) Not Detected (NotDetected) Parainfluenza 1 (PCR) Not Detected (NotDetected) Parainfluenza 2 (PCR) Not Detected (NotDetected) Parainfluenza 3 (PCR) Not Detected (NotDetected) Parainfluenza 4 (PCR) Not Detected (NotDetected) RSV (PCR) Not Detected (NotDetected) Entero/Rhino (PCR) Not Detected (NotDetected) Administered Medications Acetaminophen (Acetaminophen 325 Mg Tab) 650 mg PO Q4H PRN PRN Reason: Headache or Pain Stop: 03/07/24 13:39 Last Admin: 02/06/24 20:36 Dose: 650 mg Documented By: Admin: 02/06/24 15:14 Dose: 650 mg Documented By: JOSE Amlodipine Besylate (Amlodipine Besylate 5 Mg Tab) 2.5 mg PO QAM [facility] Stop: 03/08/24 08:59 Last Admin: 02/07/24 08:24 Dose: 2.5 mg Documented By: EPIFANIO Aspirin (Aspirin 81 Mg Ectab) 81 mg PO QPM [facility] Stop: 03/07/24 20:59 Last Admin: 02/06/24 20:38 Dose: 81 mg Documented By: JENNIFER Atorvastatin Calcium (Atorvastatin 40 Mg Tab) 80 mg PO HS [facility] Stop: 03/07/24 20:59 Last Admin: 02/06/24 20:38 Dose: 80 mg Documented By: JENNIFER Buspirone HCl (Buspirone 7.5 Mg Tab) 7.5 mg PO TID [place] Stop: 03/07/24 13:59 Last Admin: 02/07/24 12:59 Dose: 7.5 mg Documented By: Admin: 02/07/24 08:23 Dose: 7.5 mg Documented By: Admin: 02/06/24 20:39 Dose: 7.5 mg Documented By: Admin: 02/06/24 13:00 Dose: 7.5 mg Documented By: JOSE Clopidogrel Bisulfate (Clopidogrel Bisulfate 75 Mg Tab) 75 mg PO DAILY [facility] Stop: 03/08/24 08:59 Last Admin: 02/07/24 08:24 Dose: 75 mg Documented By: EPIFANIO Duloxetine HCl (Duloxetine Hcl 60 Mg Cap) 60 mg PO QPM [facility] Stop: 03/07/24 20:59 Last Admin: 02/06/24 20:41 Dose: 60 mg Documented By: JENNIFER Fluvoxamine Maleate (Fluvoxamine Maleate 50 Mg Tab) 75 mg PO DAILY [facility] Stop: 03/07/24 10:53 Last Admin: 02/07/24 08:23 Dose: 75 mg Documented By: Admin: 02/06/24 12:58 Dose: 75 mg Documented By: JOSE Ceftriaxone Sodium (Rocephin) 2,000 mg in 50 mls @ 100 mls/hr IV Q24H [facility] Stop: 02/12/24 07:59 Last Infusion: 02/07/24 08:53 Dose: Infused Documented By: Admin: 02/07/24 08:23 Dose: 100 mls/hr Documented By: EPIFANIO Insulin Aspart (Insulin Aspart Per Unit Charge) 0 units SC [facility] Stop: 03/07/24 12:14 Last Admin: 02/07/24 12:43 Dose: 8 units Documented By: EPIFANIO Co-signed By: ALEXEY Admin: 02/07/24 08:37 Dose: 8 units Documented By: EPIFANIO Co-signed By: ALEXEY Admin: 02/06/24 20:53 Dose: Not Given Documented By: Admin: 02/06/24 17:45 Dose: 6 units Documented By: JOSE Co-signed By: CELE Admin: 02/06/24 12:57 Dose: 3 units Documented By: JOSE Co-signed By: ALEXEY Insulin Glargine (Lantus Per Unit Charge) 0 units SC [facility]; Protocol Stop: 03/07/24 20:59 Last Admin: 02/06/24 20:53 Dose: Not Given Documented By: JENNIFER Levothyroxine Sodium (Levothyroxine Sodium 100 Mcg Tablet) 100 mcg PO DAILYBB [facility] Stop: 03/08/24 06:29 Last Admin: 02/07/24 05:43 Dose: 100 mcg Documented By: JENNIFER Oxybutynin Chloride (Oxybutynin Chloride Xl 5 Mg Tabcr) 5 mg PO QAM [facility] Stop: 03/08/24 08:59 Last Admin: 02/07/24 08:24 Dose: 5 mg Documented By: EPIFANIO Pantoprazole Sodium (Pantoprazole 40 Mg Tab) 40 mg PO BID [facility] Stop: 03/07/24 20:59 Last Admin: 02/07/24 08:23 Dose: 40 mg Documented By: Admin: 02/06/24 20:43 Dose: 40 mg Documented By: JENNIFER Topiramate (Topiramate 50 Mg Tab) 50 mg PO BID [place] Stop: 03/07/24 20:59 Last Admin: 02/07/24 08:23 Dose: 50 mg Documented By: Admin: 02/06/24 20:37 Dose: 50 mg Documented By: JENNIFER Discontinued Medications Sodium Chloride (Nss) 1,000 mls @ 999 mls/hr IV .Q1H1M ONE Stop: 02/06/24 08:36 Last Infusion: 02/06/24 09:37 Dose: Infused Documented By: Admin: 02/06/24 07:45 Dose: 999 mls/hr Documented By: RAJWINDER Ceftriaxone Sodium (Rocephin) 2,000 mg in 50 mls @ 100 mls/hr IV NOW STA Stop: 02/06/24 08:06 Last Infusion: 02/06/24 08:46 Dose: Infused Documented By: Admin: 02/06/24 07:46 Dose: 100 mls/hr Documented By: RAJWINDER Magnesium Sulfate/Dextrose (Magnesium Sulfate / D5w) 1 gm in 100 mls @ 200 mls/hr IV Q30M [facility] Stop: 02/06/24 08:40 Last Infusion: 02/06/24 09:37 Dose: Infused Documented By: Admin: 02/06/24 08:45 Dose: 200 mls/hr Documented By: Infusion: 02/06/24 08:38 Dose: Infused Documented By: Admin: 02/06/24 08:08 Dose: 200 mls/hr Documented By: RAJWINDER Sodium Chloride (Nss) 1,000 mls @ 999 mls/hr IV .Q1H1M ONE Stop: 02/06/24 09:52 Last Infusion: 02/06/24 12:32 Dose: Infused Documented By: Admin: 02/06/24 10:04 Dose: 999 mls/hr Documented By: RAJWINDER Sodium Chloride (Nss) 1,000 mls @ 80 mls/hr IV .[id number] [facility] Stop: 02/07/24 01:59 Last Infusion: 02/07/24 02:46 Dose: Infused Documented By: Admin: 02/06/24 14:16 Dose: 80 mls/hr Documented By: JOSE Lorazepam (Lorazepam 0.5 Mg Tab) 0.5 mg PO NOW STA Stop: 02/06/24 13:41 Last Admin: 02/06/24 14:16 Dose: 0.5 mg Documented By: JOSE Lorazepam (Lorazepam 2 Mg/1 Ml Vial) 0.5 mg IV NOW STA Stop: 02/06/24 22:02 Last Admin: 02/06/24 23:14 Dose: 0.5 mg Documented By: JENNIFER Imaging Data Radiologist's Impression: Chest X-Ray 02/06/24 06:53 XR chest 1V portable HISTORY: 59 years-old Female weakness COMPARISON: 04/12/2022 TECHNIQUE: AP view of the chest FINDINGS: Heart is upper limits of normal in size. Mild bibasilar opacities. No pneumothorax or pleural effusion. Bones appear grossly intact. IMPRESSION: Mild bibasilar opacities may be secondary to summation density versus airspace disease. Findings could be correlated with PA and lateral views of the chest. ACT 112: Negative or not required by law. The above report was generated using voice recognition software. It may contain grammatical, syntax or spelling errors. Electronically signed by: Rohan Bonner M.D. 02/06/2024 8:[address] 02/06/24 06:54 Exam(s): CT HEAD Without Contrast EXAM: CT Head Without Intravenous Contrast CLINICAL HISTORY: Reason for exam: AMS. TECHNIQUE: Axial computed tomography images of the head/brain without intravenous contrast. CTDI is 38.88 mGy and DLP is 547.75 mGy-cm. Automated exposure control was utilized for the study. A dose lowering technique was utilized adhering to the principles of ALARA. COMPARISON: No relevant prior studies available. FINDINGS: Brain: Chronic periventricular ischemic demyelination changes seen due to small vessel disease. No hemorrhage. Chronic infarct seen in the right basal ganglion. Ventricles: Unremarkable. No ventriculomegaly. Bones/joints: Unremarkable. No acute fracture. Soft tissues: Unremarkable. Sinuses: Unremarkable as visualized. No acute sinusitis. Mastoid air cells: Unremarkable as visualized. No mastoid effusion. IMPRESSION: No acute intracranial abnormality Electronically signed by: Otis Scott MD 02/06/24 09:20 AM Discharge Plan Visit Data Chief Complaint: Hypoglycemia Stated Complaint: Hypoglycemia ED Provider: Anisa Daniels Discharge Problem: Hypoglycemia, AMS (altered mental status) Patient Disposition: Admitted As Inpatient Discharge Instructions Interventions: ED Discharge Assessment Last Done: 02/06/24 09:42 Discharge Problem: AMS (altered mental status) Qualifiers: Altered mental status type: unspecified Qualified Code(s): R41.82 - Altered mental status, unspecified
--- NOTE | 2024-02-06 09:48 | History & Physical Report ---
Date of Service February 06, 2024 Assessment & Plan (1) Altered mental status: Plan: 59-year-old female presenting for altered mental status around 0445 on 02/05; found to be hypoglycemic when EMS arrived at 31, hypoglycemia resolved once managed - Admit - Suspect symptoms and lab results secondary to UTI - No symptoms of dysuria, hematuria, frequency, additional LUTS; daughter as the patient does get recurrent UTIs and does not present with typical symptoms. - No documented h/o Pseudomonas - CBC- WBC 18.63 with left shift (14.34); lactate 2.6 - Trop 24.6-> 54.1, repeat pending; no chest pain; EKG w/o changes; demand - UA shows 1+ protein, 3+ glucose, 1+ leukocyte Estrace, 21-50 WBC, 3-5 hyaline cast, 3-5 epithelial cell, no bacteria; pending culture - CXR: Moderate basilar opacities secondary to summation density versus airspace disease findings correlate with PA lateral views of chest; CXR x 2: No acute process - CTAP: No acute intra-abdominal or intrapelvic abnormality, no bowel obstruction or bowel wall thickening, no hydronephrosis, chronic findings (RML nodule, degenerative changes of the spine pelvis hips) - Ceftriaxone 1g IV daily - Zofran 4mg IV q6hr (2) Acute kidney injury: Plan: H/o CKD stage III - Cr 1.50 (baseline 0.85-0.90) - 2L NSS in ED - Insulin glargine nightly; hold for resolution of SARY - UA 1+ protein, 3+ glucose, 1+ leukocyte Estrace, 21-50 WBC, 3-5 hyaline cast, 3-5 epithelial cell, no bacteria - CMP a.m. - Pending urine Na and Cr - Continue to promote oral hydration (3) CKD (chronic kidney disease), stage III: Plan: H/o CKD stage III - Cr 1.50 (baseline 0.85-0.90) - BUN 45 - eGFR 39.4 - 2L NSS in ED - No ACEi - Not following with nephrology - CTAP: No acute intra-abdominal or intrapelvic abnormality, no hydronephrosis - CMP a.m. - Continue to promote oral hydration (4) Insulin dependent type 2 diabetes mellitus: Plan: T2DM ID - Hold metformin, hold repalinide - Takes insulin glargine 16 units nightly - Most recent A1C 6.8% (01/28) - will defer Basal insulin in setting of SARY - T2DM diet - BSG ACHS - Pharm consult for glycemic management Plan HTN- Amlodipine 2.5mg HLD- Atorvastatin 80mg Hypothyroidism- TSH 3.698; Levothyroxine 100 mcg Gastritis/GERD- Omeprazole 40 BID Migraine- Topiramate 50mg ELIAS- Declines CPAP PAD/Carotid stenosis- Follows with cardiology; most recent procedure 01/21 RLE angiography; Plavix + ASA H/o CVA- 2021 Depression//PTSD/Fibromyalgia- Duloxetine; Buspirone, fluvoxamine Dispo: Admit VTE Prophylaxis: SCDs Code: DNR/DNI Admission and Anticipated Discharge Date Admission Date: 02/06/2024 History of Present Illness Chief Complaint: AMS with hypoglycemia Primary Care Provider: Ace Connelly PA-C Patient is a 59-year-old female who arrived to ED via EMS after her daughter had called in because the patient had an altered mental state in the morning around 0445. Daughter reports the patient had repetitive statements about being hot. EMS provided the patient with 1 L of D10 after blood glucose readings were 31; this provided improvement in blood sugars. ED course: CBC- WBC 18.63 with left shift (14.34), H&H 11.4/36.0, platelets 415; CMP- Cr 1.5, BUN 45; magnesium 1.2, lactate 2.6, procalcitonin 0.05; UA revealing protein, glucose, leukocyte Estrace, white blood cells with culture pending; EKG NSR. Provided with IVF and Rocephin in ED. Patient is a 59-year-old female with PMHx T2DM insulin-dependent, CKD stage III, hypothyroid, recurrent UTIs, history of CVA, migraines, PTSD, hyperlipidemia, hypertension, and cervical radicular pain presenting via EMS for altered mental status this a.m. Patient was found to be hypoglycemic when EMS arrived, with blood sugar of 31. Patient's daughter, Christy, had called EMS around 0445 when she found her mom in bed mumbling statements about being warm, and having twitching movements of the upper extremities. EMS transported patient to ED. She states that currently she feels okay. Does report a recent history of right ear pain approximately 1 to 2 days ago that resulted in drainage of both blood and pus from the right ear. Ear is not currently hurting anymore, however she does have mild R sided neck pain, and has had an ongoing headache that she associates with stress for in unknown amount of time. Has had some sinus congestion, but no cough, or fevers. Denies current urinary complaints such as dysuria, hematuria, or frequency, however her daughter adds that the patient does not normally have typical urinary symptoms when she has a UTI. No back pain. States that she always has numbness/tingling in her toes, and did just have recent procedure (01/21) for a right sided angiography. Only recent sick contact through her daughter who who was around 2 children were diagnosed with s trep throat. No additional known sick contacts. Denies chest pain, shortness of breath, palpitations, abdominal pain, N/V/D/C, weakness, vision changes. Patient only took omeprazole this a.m. Please see Dr. Hannon's attestation for adjustments/additions to treatment plan. Allergies Allergy/AdvReac Type Severity Reaction Status Date / Time No Known Allergies Allergy Verified 01/22/24 11:18 Home Medications Medication Instructions Recorded Confirmed Type duloxetine 60 mg capsule,delayed 60 mg PO QPM 02/23/19 02/06/24 History release (Cymbalta) metformin 1,000 mg tablet 1,000 mg PO BID 02/23/19 02/06/24 History diclofenac sodium 1 % topical gel 2 g topical QID PRN Pain 04/12/22 02/06/24 History repaglinide 2 mg tablet 2 mg PO HS 04/12/22 02/06/24 History acetaminophen 325 mg capsule 325 mg PO UD PRN Pain 09/18/22 02/06/24 History cholecalciferol (vitamin D3) 50 50 mcg PO QPM 09/18/22 02/06/24 History mcg (2,000 unit) capsule (Vitamin D3) atorvastatin 80 mg tablet 80 mg PO HS 01/27/23 02/06/24 History fluvoxamine 25 mg tablet See Rx Instructions .Route .COMPLEX 01/27/23 02/06/24 History aspirin 81 mg tablet,delayed 81 mg PO QPM 06/01/23 02/06/24 History release omeprazole 40 mg capsule,delayed 40 mg PO BID 08/26/23 02/06/24 History release topiramate 50 mg tablet (Topamax) 50 mg PO BID 09/03/23 02/06/24 History clopidogrel 75 mg tablet (Plavix) 75 mg PO DAILY #30 tabs 12/19/23 02/06/24 Rx insulin glargine U-300 conc 300 60 unit subcut QPM 12/19/23 02/06/24 History unit/mL (1.5 mL) subcutaneous pen (Toujeo SoloStar U-300 Insulin) amlodipine 2.5 mg tablet 2.5 mg PO QAM 02/06/24 02/06/24 History buspirone 7.5 mg tablet 0 mg PO TID 02/06/24 02/06/24 History fluvoxamine 50 mg tablet See Rx Instructions .Route .COMPLEX 02/06/24 02/06/24 History levothyroxine 100 mcg tablet 100 mcg PO QAM 02/06/24 02/06/24 History oxybutynin chloride 5 mg 0 mg PO QAM 02/06/24 02/06/24 History tablet,extended release 24 hr polyethylene glycol 3350 17 17 g PO DAILY PRN Constipation 02/06/24 02/06/24 History gram/dose oral powder (Miralax) Past Med/Surg History Problem List (Updated 02/07/24 @ 14:00 by Anisa Daniels MD) AMS (altered mental status) (Acute) Hypoglycemia (Acute) Acute kidney injury Altered mental status Abdominal pain Gastritis Word finding difficulty CKD (chronic kidney disease), stage III Insulin dependent type 2 diabetes mellitus Weakness (Acute) H/O umbilical hernia repair (Acute 12/18/22) Robotic Assisted Ventral Hernia Repair With Mesh (4 x 3 cm), robotic umbilical Hernia Repair(primary, 1.5 cm) - Anand Cervantes DO, FACS H/O ventral hernia repair (12/18/22) Robotic Assisted Ventral Hernia Repair With Mesh (4 x 3 cm), robotic umbilical Hernia Repair(primary, 1.5 cm) - Anand Cervantes DO, FACS Hypothyroid History of stroke apr 06 2022/writing is shaky and can't find word sometimes. Therapy completed and resolved most. Obese Diabetes mellitus Recurrent UTI Carotid stenosis, left misinterpretated per pt Acute CVA (cerebrovascular accident) (Acute) Carpal tunnel syndrome, right Cervical radicular pain Encounter for pre-operative examination Fibromyalgia Post traumatic stress disorder Hx of migraines Hypertension Hyperlipidemia Sleep apnea BIPAP/haven't used it in yrs. Medical History History of COVID-19 approx 2021 Gastroparesis suspected, no official dx at current. Sleep apnea hx bipap, no use in yrs. Recurrent UTI most recent end of August 2023 - abx tx completed and no current s/s. PTSD (post-traumatic stress disorder) Hypothyroid Hyperlipidemia HTN (hypertension) Gastritis Fibromyalgia Chronic kidney disease stage 3 Diabetes Femoral artery stenosis, left moderate Femoral artery stenosis, right mild Carotid stenosis monitors History of migraine headaches History of stroke 03/2022 - residual: speech impairment, difficult with word finding, left side mild weakness and altered use of left hand. Anxiety Generalized headaches Overactive bladder Vomiting ongoing 25 +yrs/unknown etiology Erosion, teeth ongoing episodes of vomiting Stress incontinence Urge incontinence Hx of duodenal ulcer Depression Surgical History History of right inguinal hernia repair (2022) and umbilical at same time. History of left cataract surgery Hx of right cataract extraction History of cardiac cath approx 2020 or 2021, done due to diabetes...[facility]/no findings. H/O colonoscopy Nausea and vomiting after administration of anesthetic agent severe History of gynecologic surgery uterine ablation H/O total hysterectomy History of bilateral tubal ligation Status post de Quervain's release surgery hx , left History of repair of rotator cuff left & right History of esophagogastroduodenoscopy (EGD) History of herniorrhaphy left inguinal x3. History of cholecystectomy History of tooth extraction Family History Mother , age 56 of lung cancer Family history of diabetes mellitus Lung cancer Father , age 76 of COPD COPD (chronic obstructive pulmonary disease) Grandmother (Paternal) Family history of diabetes mellitus Grandmother (Maternal) Family history of diabetes mellitus Sister Breast cancer Diabetes Hypertension Sister Breast cancer Hypertension Sister Cancer Social History Smoking Status: Never smoker Tobacco Type: Cigarettes Age Started Using Tobacco: 21; Age Quit Using Tobacco: 44; Second Hand Exposure: No; Do You Dip or Chew Tobacco: No; Hx Alcohol Use: No Hx Substance Use: No Preferred Language: Slovenian Communication Ability: Effective Communication Ability Comment: speech impairment , hx stroke - communication effective. Visual Impairment: No Limitations Human Resource Management Instructor Required: No Beliefs That Will Affect Care: None Current Living Situation: Family Current Living Situation Comment: [facility] current occupational status: employed current occupation: [employer] of a [employer] How many Children do You have: 3 Other Information That Helps Us Care for You: No Feels Safe at Home: Yes Safety Concerns: Feels Safe At This Time Diet: regular during the past year weight has: decreased > 10 lbs Assistive Devices: None Review of Systems Review of Systems: All systems reviewed & are unremarkable except as noted in Subjective Physical Exam Physical Exam: General: No acute distress Skin: Warm and dry, without rashes or lesions; varicose vein minimal in quantity to BLE Head: Normocephalic, atraumatic Eyes: PERRL, conjunctivae clear, sclera non-icteric ENT: External ear and ear canal without swelling, right TM some cloudiness, left TM WNL, no ear protrusion, no erythema; nose atraumatic; tongue normal appearance, pharynx normal without tonsillar swelling or exudate Neck: Supple, no LAD; no JVD; negative Brudzinski Cardio: RRR, no M/G/R, S1 and S2 normal Resp: Chest wall symmetric, normal respiratory effort; No respiratory distress, Lungs CTA in all lobes bilaterally, no wheezes, rales, or rhonchi Abdomen: Soft, symmetric, nontender; no distention; No masses or hepatosplenomegaly : No CVA tenderness bilaterally MSK: No deformities, full ROM throughout; sensation normal to UE/LE; pulses palpable and equal; no edema. Neuro: Awake, alert; Muscle strength 5/5 bilaterally in UE/LE; Sensation intact bilaterally; CN intact Psych: Appropriate mood and affect DaughterChristy, is present in the room during visit. Results & Data Results & Data Vital Signs (Past 12 Hours) Vital Signs Temp Pulse Pulse Resp BP BP Pulse Ox 02/06/24 09:28 91 H 16 117/59 L 96 02/06/24 06:53 90 02/06/24 06:30 96/56 L 94 02/06/24 06:04 95 H 14 112/57 L 93 02/06/24 05:49 36.4 C L 97 H 16 145/57 H 95 02/06/24 05:35 99 H O2 Del Method 02/06/24 09:28 Room Air 02/06/24 06:53 Room Air 02/06/24 06:30 02/06/24 06:04 Room Air 02/06/24 05:49 Room Air 02/06/24 05:35 Laboratory Results 02/06/24 05:49 Urine Culture - Pending Urine,Clean Catch 02/06/24 02/06/24 02/06/24 08:14 07:24 05:49 WBC RBC Hgb Hct MCV MCH MCHC RDW Std Deviation RDW Coeff of Ulcius Plt Count MPV Immature Gran % (Auto) Neut % (Auto) Lymph % (Auto) [place] % (Auto) Eos % (Auto) Baso % (Auto) Neut # (Auto) Lymph # (Auto) [place] # (Auto) Eos # (Auto) Baso # (Auto) Immature Gran # (Auto) Sodium Potassium Chloride Carbon Dioxide Anion Gap BUN Creatinine Est Cr Clr Drug Dosing eGFR BUN/Creatinine Ratio Glucose POC Glucose Lactate 2.6 H* Calcium Magnesium Total Bilirubin AST ALT Alkaline Phosphatase Troponin I High Sens 54.1 H* D C-Reactive Protein Total Protein Albumin Globulin Albumin/Globulin Ratio Procalcitonin TSH Urine Color Yellow Urine Appearance Clear Urine pH 5.5 Ur Specific [place] 1.026 Urine Protein 1+ H Urine Glucose (UA) 3+ H Urine Ketones Negative Urine Blood Negative Urine Nitrite Negative Urine Bilirubin Negative Urine Urobilinogen Negative Ur Leukocyte Esterase 1+ H Urine WBC (Auto) 21-50 H Urine RBC (Auto) 0-2 U Hyaline Cast (Auto) 3-5 H U Epithel Cells (Auto) 3-5 H Urine Bacteria (Auto) None Seen Adenovirus (PCR) Not Detected B. pertussis DNA (PCR) Not Detected B.parapertussis DNA PCR Not Detected C. pneumoniae DNA (PCR) Not Detected Coronavirus OC43 (PCR) Not Detected Coronavirus HKU1 (PCR) Not Detected Coronavirus 229E (PCR) Not Detected SARS-CoV-2 (PCR) Not Detected Coronavirus NL63 (PCR) Not Detected Human Metapneumovir PCR Not Detected Influenza Type A (PCR) Not Detected Influenza Type B (PCR) Not Detected M. pneumoniae (PCR) Not Detected Parainfluenza 1 (PCR) Not Detected Parainfluenza 2 (PCR) Not Detected Parainfluenza 3 (PCR) Not Detected Parainfluenza 4 (PCR) Not Detected RSV (PCR) Not Detected Entero/Rhino (PCR) Not Detected 02/06/24 02/06/24 05:46 05:40 WBC 18.63 H RBC 3.98 L Hgb 11.4 L Hct 36.0 L MCV 90.5 MCH 28.6 MCHC 31.7 L RDW Std Deviation 47.1 H RDW Coeff of Lucius 14.1 Plt Count 415 H MPV 10.1 Immature Gran % (Auto) 0.5 Neut % (Auto) 77.0 Lymph % (Auto) 14.1 [place] % (Auto) 6.9 Eos % (Auto) 1.2 Baso % (Auto) 0.3 Neut # (Auto) 14.34 H Lymph # (Auto) 2.63 [place] # (Auto) 1.28 H Eos # (Auto) 0.22 Baso # (Auto) 0.06 Immature Gran # (Auto) 0.10 Sodium 141 Potassium 3.9 Chloride 107 Carbon Dioxide 24 Anion Gap 10 BUN 45 H Creatinine 1.50 H Est Cr Clr Drug Dosing 40.6 eGFR 39.40 BUN/Creatinine Ratio 30.0 H Glucose 157 H POC Glucose 159 H Lactate Calcium 9.5 Magnesium 1.2 L Total Bilirubin 0.3 AST 13 ALT 11 Alkaline Phosphatase 96 Troponin I High Sens 24.6 H C-Reactive Protein < 0.50 Total Protein 6.9 Albumin 3.8 Globulin 3.1 Albumin/Globulin Ratio 1.2 Procalcitonin 0.05 TSH 3.698 Urine Color Urine Appearance Urine pH Ur Specific [place] Urine Protein Urine Glucose (UA) Urine Ketones Urine Blood Urine Nitrite Urine Bilirubin Urine Urobilinogen Ur Leukocyte Esterase Urine WBC (Auto) Urine RBC (Auto) U Hyaline Cast (Auto) U Epithel Cells (Auto) Urine Bacteria (Auto) Adenovirus (PCR) B. pertussis DNA (PCR) B.parapertussis DNA PCR C. pneumoniae DNA (PCR) Coronavirus OC43 (PCR) Coronavirus HKU1 (PCR) Coronavirus 229E (PCR) SARS-CoV-2 (PCR) Coronavirus NL63 (PCR) Human Metapneumovir PCR Influenza Type A (PCR) Influenza Type B (PCR) M. pneumoniae (PCR) Parainfluenza 1 (PCR) Parainfluenza 2 (PCR) Parainfluenza 3 (PCR) Parainfluenza 4 (PCR) RSV (PCR) Entero/Rhino (PCR) Diagnostic Findings Chest X-Ray 02/06/24 06:53 XR chest 1V portable HISTORY: 59 years-old Female weakness COMPARISON: 04/12/2022 TECHNIQUE: AP view of the chest FINDINGS: Heart is upper limits of normal in size. Mild bibasilar opacities. No pneumothorax or pleural effusion. Bones appear grossly intact. IMPRESSION: Mild bibasilar opacities may be secondary to summation density versus airspace disease. Findings could be correlated with PA and lateral views of the chest. ACT 112: Negative or not required by law. The above report was generated using voice recognition software. It may contain grammatical, syntax or spelling errors. Electronically signed by: Rohan Bonner M.D. 02/06/2024 8:[address] 02/06/24 06:54 Exam(s): CT HEAD Without Contrast EXAM: CT Head Without Intravenous Contrast CLINICAL HISTORY: Reason for exam: AMS. TECHNIQUE: Axial computed tomography images of the head/brain without intravenous contrast. CTDI is 38.88 mGy and DLP is 547.75 mGy-cm. Automated exposure control was utilized for the study. A dose lowering technique was utilized adhering to the principles of ALARA. COMPARISON: No relevant prior studies available. FINDINGS: Brain: Chronic periventricular ischemic demyelination changes seen due to small vessel disease. No hemorrhage. Chronic infarct seen in the right basal ganglion. Ventricles: Unremarkable. No ventriculomegaly. Bones/joints: Unremarkable. No acute fracture. Soft tissues: Unremarkable. Sinuses: Unremarkable as visualized. No acute sinusitis. Mastoid air cells: Unremarkable as visualized. No mastoid effusion. IMPRESSION: No acute intracranial abnormality Electronically signed by: Otis Scott MD 02/06/24 09:20 AM ECG Additional Comments: NSR, HR 98, MO 160, QRS 84, QT/QTc 380/464 Code Status & VTE Plan Code Status DNR/DNI Supervising Physician Co-Signing Physician Notes During face to face encounter, I obtained a HSITORY AND physical examination, discussed hospital PLAN OF CARE with patient I discussed plan of care with WALI MONTANA. I reviewed above note and agree with it except for the following: Patient admitted with what appears to be sepsis secondary toeither otitis media or UTI. Patient is not complaining of urinary symptoms at this time but her WBC is elevated as well as tachycardic. She also has elevated lactic acid and creatinine. Will continue ceftriaxone and IVF. PG Care Time/CCT Total # of Minutes Spent Total Time Spent with Patient: Total time spent is greater than 50% in coordination of care (as documented) at patient's floor/unit and/or counseling patient: Coding Level of Care Code 19306 INT INP/OBS CARE 75MIN Diagnoses Altered mental status R41.82 Acute kidney injury N17.9 CKD (chronic kidney disease), stage III N18.30 Insulin dependent type 2 diabetes mellitus E11.9; Z79.4 Time Spent (min) 85
--- NOTE | 2024-02-06 10:27 | XRay Report ---
XR chest 2V PA/lateral HISTORY: 59 years-old Female R/o infectious source, f/u imaging COMPARISON: 02/06/2024 TECHNIQUE: PA and lateral views of the chest FINDINGS: Cardiomediastinal and hilar silhouettes are within normal limits. No pneumothorax, pleural effusion o r airspace consolidation. Cholecystectomy. IMPRESSION: No acute process. ACT 112: Negative or not required by law. The above report was generated using voice recognition software. It may contain grammatical, syntax o r spelling errors. Electronically signed by: Rohan Bonner M.D. 02/06/2024 10:25 AM
--- NOTE | 2024-02-06 10:27 | CT Scan Report ---
ABDOMEN AND PELVIS CT WITHOUT CONTRAST CT DOSE: 1313.37 mGy.cm HISTORY: Acute generalized abdominal pain Source infection; lactate TECHNIQUE: Multiaxial CT images of the abdomen and pelvis were performed without contrast. A dose lo wering technique was utilized adhering to the principles of ALARA. COMPARISON STUDY: CTA runoff 11/28/2023, CT abdomen and pelvis 01/27/2023 FINDINGS: Minimal bibasilar atelectasis. Low suspicion for millimeter solid nodule of the right middl e lobe on image 3 series 3 is stable from prior. No pneumoperitoneum. Unremarkable spleen, pancreas and adrenal glands. Cholecystectomy. Unremarkable liver. lobulati ons of the kidneys. No hydronephrosis. Urinary bladder wall thickening with partial distention. Subce ntimeter hypodensity of the superior pole right kidney, likely benign and too small to characterize. Hysterectomy. Atherosclerosis of the aorta without aneurysm. No lymphadenopathy. Mild colonic diverticulosis. Mild colonic fecal retention. There is no bowel obstruction or bowel wall thickening. No ascites or mesent malathi inflammation. Normal appendix. Small focus of postsurgical fat necrosis within the subcutaneous anterior abdominal wall on image 110 series 3. No acute fracture identified. Degenerative changes of the spine, pelvis and hips. IMPRESSION: 1. No acute intra-abdominal or intrapelvic abnormality. 2. No bowel obstruction or bowel wall thickening. 3. No hydronephrosis. 4. Chronic findings as above. ACT 112: Negative or not required by law. The above report was generated using voice recognition software. It may contain grammatical, syntax o r spelling errors. Electronically signed by: Rohan Bonner M.D. 02/06/2024 10:26 AM
[2024-02-06] MEDS ORDERED: GLUCOSE 40% GEL 15 GM TUBE PO PRN (10:54)
[2024-02-06] MEDS ORDERED: CARBOHYDRATES FOR HYPOGLYCEMIA PO PRN (10:54)
[2024-02-06] MEDS ORDERED: DEXTROSE 50% 50 ML SYRINGE IV PRN (10:54)
[2024-02-06] MEDS ORDERED: fluvoxaMINE MALEATE 50 MG TAB PO SCH (10:54)
[2024-02-06] MEDS ORDERED: GLUCAGON FOR INJ 1 MG VIAL SQ PRN (10:54)
[2024-02-06] MEDS ORDERED: GLUCOSE 10 TAB/TUBE PO PRN (10:54)
[2024-02-06] MEDS ORDERED: PHARMACY GLYCEMIC MGMT CONSULT PRN (10:54)
--- NOTE | 2024-02-06 12:20 | Electrocardiogram Report ---
Test Reason : Blood Pressure : */* mmHG Vent. Rate : 90 BPM Atrial Rate : 90 BPM P-R Int : 160 ms QRS Dur : 84 ms QT Int : 380 ms P-R-T Axes : 67 57 54 degrees QTcB Int : 464 ms Normal sinus rhythm Normal ECG When compared with ECG of 27-Jan-2023 21:04, No significant change was found Confirmed by Darryl Clark ([id number]) on 02/06/2024 12:20:09 PM Referred By: REFERRED SELF Confirmed By: Darryl Clark
[2024-02-06] MEDS: INSULIN ASPART PER UNIT CHARGE SC SCH (12:57)
[2024-02-06] MEDS: fluvoxaMINE MALEATE 50 MG TAB PO SCH (12:58)
[2024-02-06] MEDS: busPIRone 7.5 MG TAB PO SCH (13:00)
--- NOTE | 2024-02-06 14:06 | Pharmacy Report ---
Pharmacy Glycemic Short Note 2 - Date of Service February 06, 2024 - Glycemic Short BSG Results (Last 24 hours): 02/06/24 02/06/24 02/06/24 05:40 05:46 11:42 Glucose 157 H POC Glucose 159 H 158 H OUTPATIENT ANTIDIABETIC REGIMEN: * Lantus dose unclear, dose of 16 to 100 units/daily referenced in our records and outside records * Patient also supposedly takes Trulicity, metformin and repaglinide * A1c 9% back in 07/31/23 per outside records. ASSESSMENT: 02/05: * Lisa Miller is a 59 yo F presenting w/AMS and hypoglycemia with BG of 31 per EMS prior to ER arrive. Pt's PMH includes DMII, CKD, hx of CVA, HTN and recurrent UTIs (currently being tx w/ceftriaxone as well for UTI). Pharmacy was consulted for glycemic management d/t pt's hx of DMII and hypoglycemia * Since arrival to [facility], pt's BSG has been 159 and 158. * Due to pt's [place] hypoglycemia and unclear home Lantus dose will approach more cautiously with dosing parameters starting tonight * Will utilize a NovoLog stress factor closer to 1 and adjust going forward as needed. For reasons above will also use higher BG goal range. * Will order A1c tomorrow since last record >3 months. PLAN FOR INPATIENT GLYCEMIC CONTROL: * Hold outpatient oral diabetes medications * Order A1c with 02/07/24 AM labs. * Basal insulin * Lantus SC HS with dosing parameters (BSGs of : <180-hold; 180-250-10 units; >250-20units) * Bolus insulin * NovoLog per scale ACHS or Q6hrs while NPO * Goal Range: Low 120 mg/dL - High 160 mg/dL * Correction Factor: 30 mg/dL/unit * Nutritional / Prandial insulin per carb ratio of 1 unit per 10 grams CHO consumed
[2024-02-06] MEDS: SODIUM CHLORIDE 0.9% 1,000 ML IV SCH (14:16)
[2024-02-06] MEDS: LORazepam 0.5 MG TAB PO STA (14:16)
[2024-02-06] MEDS: ACETAMINOPHEN 325 MG TAB PO PRN (15:14)
[2024-02-06 16:19] LABS: Creatinine Urine Random 116.1 mg/dl
[2024-02-06] MEDS: TOPIRAMATE 50 MG TAB PO SCH (20:37)
[2024-02-06] MEDS: ASPIRIN 81 MG ECTAB PO SCH (20:38)
[2024-02-06] MEDS: ATORVASTATIN 40 MG TAB PO SCH (20:38)
[2024-02-06] MEDS: DULoxetine HCL 60 MG CAP PO SCH (20:41)
[2024-02-06] MEDS: PANTOprazole 40 MG TAB PO SCH (20:43)
[2024-02-06] MEDS: LANTUS PER UNIT CHARGE SC SCH (20:53)
[2024-02-06] MEDS: LORazepam 2 MG/1 ML VIAL IV STA (23:14)
[2024-02-07] MEDS: LEVOTHYROXINE SODIUM 100 MCG TABLET PO SCH (05:43)
[2024-02-07 06:06] LABS: Basophils # (auto) 0.04 K/uL (0.00-0.20); Basophils % (auto) 0.4 %; Eosinophils # (auto) 0.28 K/uL (0.00-0.50); Eosinophils % (auto) 2.7 %; Hematocrit (blood only) 31.7 % (37.0-47.0); Hemoglobin 10.1 g/dl (12.0-16.0); Immature Granulocytes # (auto) 0.03 K/uL (0.01-0.20); Immature Granulocytes % (auto) 0.3 %; Lymphocytes # (auto) 4.23 K/uL (1.20-3.40); Lymphocytes % (auto) 40.8 %; Mean Corpuscular Hemoglobin 28.5 pg (25.0-34.0); Mean Corpuscular Hgb Conc 31.9 g/dL (32.0-36.0); Mean Corpuscular Volume 89.3 fL (80.0-100.0); Mean Platelet Volume 9.9 fL (9.4-12.4); Monocytes # (auto) 0.67 K/uL (0.11-0.59); Monocytes % (auto) 6.5 %; Neutrophils # (auto) 5.12 K/uL (1.40-6.50); Neutrophils % (auto) 49.3 %; Platelet Count 342 K/uL (130-400); RDW Coefficient of Variation 14.3 % (11.5-14.5); RDW Standard Deviation 46.6 fL (36.4-46.3); Red Blood Count 3.55 M/uL (4.20-5.40); White Blood Count 10.37 K/ul (4.8-10.8)
[2024-02-07 06:20] LABS: Albumin Globulin Ratio 1.3 (0.9-2); Albumin Level 3.4 gm/dl (3.4-5.0); BUN Creatinine Ratio 29.8 (10-20); Bilirubin,Total 0.2 mg/dl (0.2-1.0); Calcium 8.5 mg/dl (8.6-10.3); Creatinine Clr Calc Pharmacy 59.3 ml/min; Globulin 2.7 gm/dl (2.5-4.0); Potassium 4.1 mmol/L (3.5-5.1); Total Protein 6.1 gm/dl (6.0-8.3)
[2024-02-07] MEDS ORDERED: cefTRIAXone SODIUM 1,000 MG/50 ML BAG IV SCH (08:00)
[2024-02-07 08:10] LABS: Estimated Average Glucose 163 mg/dl; Hemoglobin A1C 7.3 % (4.5-5.6)
[2024-02-07] MEDS: cefTRIAXone SODIUM 2,000 MG/50 ML BAG IV SCH (08:23)
[2024-02-07] MEDS: amLODIPine BESYLATE 5 MG TAB PO SCH (08:24)
[2024-02-07] MEDS: CLOPIDOGREL BISULFATE 75 MG TAB PO SCH (08:24)
[2024-02-07] MEDS: OXYBUTYNIN CHLORIDE XL 5 MG TABCR PO SCH (08:24)
[2024-02-07 11:14] LABS: Magnesium 1.7 mg/dl (1.7-2.4)
[2024-02-07 11:24] LABS: Troponin I High Sensitivity 19.2 pg/ml (0-14)
[2024-02-07] MEDS: INFLUENZA VACC TS2024-25(6m+)/PF (IIV3) 0.5mL Syr IM ONE (19:58)
[2024-02-08 05:15] LABS: Hemoglobin 10.8 g/dl (12.0-16.0); Mean Corpuscular Hemoglobin 28.1 pg (25.0-34.0); Mean Corpuscular Hgb Conc 31.8 g/dL (32.0-36.0); Mean Corpuscular Volume 88.5 fL (80.0-100.0); Mean Platelet Volume 9.9 fL (9.4-12.4); Platelet Count 347 K/uL (130-400); Red Blood Count 3.84 M/uL (4.20-5.40); White Blood Count 10.45 K/ul (4.8-10.8)
[2024-02-08 05:30] LABS: Albumin Globulin Ratio 1.2 (0.9-2); Albumin Level 3.5 gm/dl (3.4-5.0); Bilirubin,Total 0.3 mg/dl (0.2-1.0); Creatinine Clr Calc Pharmacy 75.3 ml/min; Globulin 2.9 gm/dl (2.5-4.0); Potassium 4.3 mmol/L (3.5-5.1); Total Protein 6.4 gm/dl (6.0-8.3)
--- NOTE | 2024-02-08 06:35 | Hospitalist Progress Note ---
Date of Service February 07, 2024 Assessment & Plan (1) Altered mental status: Plan: Severe Sepsis secondary to UTI 59-year-old female presenting for altered mental status around 0445 on 02/05; found to be hypoglycemic when EMS arrived at 31, hypoglycemia resolved once managed - Admit - Suspect symptoms and lab results secondary to UTI - No symptoms of dysuria, hematuria, frequency, additional LUTS; daughter as the patient does get recurrent UTIs and does not present with typical symptoms. - No documented h/o Pseudomonas - CBC- WBC 18.63 with left shift (14.34); lactate 2.6 - Trop 24.6-> 54.1, repeat pending; no chest pain; EKG w/o changes; demand - UA shows 1+ protein, 3+ glucose, 1+ leukocyte Estrace, 21-50 WBC, 3-5 hyaline cast, 3-5 epithelial cell, no bacteria; pending culture - CXR: Moderate basilar opacities secondary to summation density versus airspace disease findings correlate with PA lateral views of chest; CXR x 2: No acute process - CTAP: No acute intra-abdominal or intrapelvic abnormality, no bowel obstruction or bowel wall thickening, no hydronephrosis, chronic findings (RML nodule, degenerative changes of the spine pelvis hips) - Ceftriaxone 1g IV daily - Zofran 4mg IV q6hr -Labs have improved as well as vitals. Currently on day 2 of antibiotics. will monitor. If continues to improve, will discharge on 02/07 (2) Acute kidney injury: Plan: H/o CKD stage III - Cr 1.50 (baseline 0.85-0.90) - 2L NSS in ED - Insulin glargine nightly; hold for resolution of SARY - UA 1+ protein, 3+ glucose, 1+ leukocyte Estrace, 21-50 WBC, 3-5 hyaline cast, 3-5 epithelial cell, no bacteria - CMP a.m. - Pending urine Na and Cr - Continue to promote oral hydration (3) CKD (chronic kidney disease), stage III: Plan: H/o CKD stage III - Cr 1.50 (baseline 0.85-0.90) - BUN 45 - eGFR 39.4 - 2L NSS in ED - No ACEi - Not following with nephrology - CTAP: No acute intra-abdominal or intrapelvic abnormality, no hydronephrosis - CMP a.m. - Continue to promote oral hydration (4) Insulin dependent type 2 diabetes mellitus: Plan: T2DM ID - Hold metformin, hold repalinide - Takes insulin glargine 16 units nightly - Most recent A1C 6.8% (01/28) - will defer Basal insulin in setting of SARY - T2DM diet - BSG ACHS - Pharm consult for glycemic management Plan HTN- Amlodipine 2.5mg HLD- Atorvastatin 80mg Hypothyroidism- TSH 3.698; Levothyroxine 100 mcg Gastritis/GERD- Omeprazole 40 BID Migraine- Topiramate 50mg ELIAS- Declines CPAP PAD/Carotid stenosis- Follows with cardiology; most recent procedure 01/21 RLE angiography; Plavix + ASA H/o CVA- 2021 Depression//PTSD/Fibromyalgia- Duloxetine; Buspirone, fluvoxamine Dispo: Admit VTE Prophylaxis: SCDs Code: DNR/DNI Admission and Anticipated Discharge Date Admission Date: February 06, 2024 Subjective Patient is now complaining of urinary symptoms. She staes she is feeling beter but has noticed an urged incontnence which is new.She is unable to reach the bathroom. Review of Systems Review of Systems: All systems reviewed & are unremarkable except as noted in HPI & below Physical Exam Physical Exam: General: No acute distress Skin: Warm and dry, Head: Normocephalic, atraumatic Eyes: PERRL, conjunctivae clear, sclera non-icteric Neck: Supple, no LAD; no JVD; negative Brudzinski Cardio: RRR, no M/G/R, S1 and S2 normal Resp:CTA BL Abdomen: Soft, symmetric, nontender; no distention; No masses or hepatosplenomegaly Results & Data Results & Data Vital Signs (Past 12 Hours) Vital Signs Temp Pulse Pulse Resp BP BP Pulse Ox 02/08/24 02:55 36.9 C 86 17 147/81 H 97 02/08/24 00:50 85 02/07/24 22:54 36.5 C 86 16 132/64 95 02/07/24 19:37 36.4 C L 89 18 153/85 H 96 O2 Del Method 02/08/24 02:55 Room Air 02/08/24 00:50 02/07/24 22:54 Room Air 02/07/24 19:37 Room Air PG Care Time/CCT Total # of Minutes Spent Total Time Spent with Patient: Total time spent is greater than 50% in coordination of care (as documented) at patient's floor/unit and/or counseling patient: Coding Level of Care Code 41639 SUB INP/OBS CARE 2/35MIN Diagnoses Altered mental status R41.82 Acute kidney injury N17.9 CKD (chronic kidney disease), stage III N18.30 Insulin dependent type 2 diabetes mellitus E11.9; Z79.4
--- NOTE | 2024-02-08 14:54 | Hospitalist Progress Note ---
Date of Service February 08, 2024 Assessment & Plan (1) Altered mental status: Plan: Severe Sepsis secondary to complicated UTI 59-year-old female presenting for altered mental status around 0445 on 02/05; found to be hypoglycemic when EMS arrived at 31, hypoglycemia resolved once managed - Admit - Suspect symptoms and lab results secondary to UTI; also with worsening incontinence - CBC- WBC 18.63 with left shift (14.34); lactate 2.6 -wbc and lactate now normalized. - CXR: Moderate basilar opacities secondary to summation density versus airspace disease findings correlate with PA lateral views of chest; CXR x 2: No acute process - CTAP: No acute intra-abdominal or intrapelvic abnormality, no bowel obstruction or bowel wall thickening, no hydronephrosis, chronic findings (RML nodule, degenerative changes of the spine pelvis hips) - Ceftriaxone 1g IV daily x 3 days -Will complete course of complicated UTI with augmentin starting 02/08 - Zofran 4mg IV q6hr -Labs have improved as well as vitals. will monitor. If continues to improve, will discharge on 02/08 (2) Acute kidney injury: Plan: H/o CKD stage III - Cr 1.50 (baseline 0.85-0.90) - 2L NSS in ED - resolved. (3) CKD (chronic kidney disease), stage III: Plan: H/o CKD stage III - Cr 1.50 (baseline 0.85-0.90) - BUN 45 - eGFR 39.4 - 2L NSS in ED - No ACEi - Not following with nephrology - CTAP: No acute intra-abdominal or intrapelvic abnormality, no hydronephrosis - CMP a.m. - Continue to promote oral hydration (4) Insulin dependent type 2 diabetes mellitus: Plan: T2DM ID - Hold metformin, hold repalinide - Takes insulin glargine 16 units nightly - Most recent A1C 6.8% (01/28) - Pharm consult for glycemic management Plan HTN- Amlodipine 2.5mg HLD- Atorvastatin 80mg Hypothyroidism- TSH 3.698; Levothyroxine 100 mcg Gastritis/GERD- Omeprazole 40 BID Migraine- Topiramate 50mg ELIAS- Declines CPAP PAD/Carotid stenosis- Follows with cardiology; most recent procedure 01/21 RLE angiography; Plavix + ASA H/o CVA- 2021 Depression//PTSD/Fibromyalgia- Duloxetine; Buspirone, fluvoxamine Dispo: Admit VTE Prophylaxis: SCDs Code: DNR/DNI Admission and Anticipated Discharge Date Admission Date: February 06, 2024 Subjective Patient reports not feeling at her baseline. Pstient is tearful, not able to verbalize why. Asking to stay one more night. Review of Systems Review of Systems: All systems reviewed & are unremarkable except as noted in HPI & below Physical Exam Physical Exam: General: No acute distress Skin: Warm and dry, Head: Normocephalic, atraumatic Eyes: PERRL, conjunctivae clear, sclera non-icteric Neck: Supple, no LAD; no JVD; negative Brudzinski Cardio: RRR, no M/G/R, S1 and S2 normal Resp:CTA BL Abdomen: Soft, symmetric, nontender; no distention; No masses or hepatosplenomegaly Results & Data Results & Data Vital Signs (Past 12 Hours) Vital Signs Temp Pulse Pulse Resp BP Pulse Ox O2 Del Method 02/08/24 13:34 96 H 02/08/24 10:36 36.9 C 91 H 19 131/78 98 Room Air 02/08/24 07:56 37.1 C 84 14 143/70 H 97 Room Air 02/08/24 07:12 80 02/08/24 02:55 36.9 C 86 17 147/81 H 97 Room Air PG Care Time/CCT Total # of Minutes Spent Total Time Spent with Patient: Total time spent is greater than 50% in coordination of care (as documented) at patient's floor/unit and/or counseling patient: Coding Level of Care Code 52567 SUB INP/OBS CARE 2/35MIN Diagnoses Altered mental status R41.82 Acute kidney injury N17.9 CKD (chronic kidney disease), stage III N18.30 Insulin dependent type 2 diabetes mellitus E11.9; Z79.4
[2024-02-09 05:14] LABS: Hematocrit (blood only) 36.8 % (37.0-47.0); Hemoglobin 11.7 g/dl (12.0-16.0); Mean Corpuscular Hemoglobin 28.1 pg (25.0-34.0); Mean Corpuscular Hgb Conc 31.8 g/dL (32.0-36.0); Mean Corpuscular Volume 88.5 fL (80.0-100.0); Platelet Count 393 K/uL (130-400); RDW Coefficient of Variation 14.1 % (11.5-14.5); RDW Standard Deviation 45.1 fL (36.4-46.3); Red Blood Count 4.16 M/uL (4.20-5.40); White Blood Count 12.21 K/ul (4.8-10.8)
[2024-02-09 05:31] LABS: Albumin Globulin Ratio 1.2 (0.9-2); Albumin Level 3.6 gm/dl (3.4-5.0); BUN Creatinine Ratio 24.7 (10-20); Bilirubin,Total 0.2 mg/dl (0.2-1.0); Calcium 9.1 mg/dl (8.6-10.3); Creatinine Clr Calc Pharmacy 76.4 ml/min; Total Protein 6.6 gm/dl (6.0-8.3)
[2024-02-09] MEDS: AMOXICILLIN/CLAVULANATE 875 MG TAB PO SCH (08:14)
[2024-02-09] MEDS: LANTUS PER UNIT CHARGE SC ONE (08:49)
--- NOTE | 2024-02-09 11:43 | Hospitalist Progress Note ---
Date of Service February 09, 2024 Assessment & Plan (1) AMS (altered mental status): (2) Hypoglycemia: (3) Acute kidney injury: Plan Patient is 58 y/o F with PMHx significant for HTN, HLD, DM II, CVA, CAD, CKD III, PTSD, fibromyalgia who presented with concerns for AMS in the setting of acute hypoglycemia. Acute Metabolic/Toxic Encephalopathy Hypoglycemia Sepsis Possible UTI reportedly patient was found to have a glucose in the 30s by EMS when they arrived to the house, called for acute alteration in mental status Head CT was unremarkable However patient with noted leukocytosis and tachycardia on arrival, infectious source likely urine Urine Cx from admission with no significant growth, repeat UA on 02/06 grew out only yeast (likely contaminant) Blood culture x 2 sets no growth to date BioFire was negative chest x-ray with no acute infectious signs CT abdomen pelvis with no acute findings Lactate was elevated at 2.6 then 3.1 before normalizing Was treated with IV Rocephin, currently transitioned to p.o. Augmentin Glucose has remained within normal limits Patient with improved mental status Continue to monitor Elevated troponins Likely demand ischemia Trop elevated at 24.6-->54.1--->19.2 Likely elevated in setting of above EKG with NSR Consider echo for any further developments Continue to monitor on telemetry Acute Kidney Injury Pt presenting with creatinine of 1.5 IVF Avoid nephrotoxic agents as able Improving, currently resolved Hyomagnesemia replete as needed DMII hgba1c in Nov of 7.3 Hold home agents insulin sliding scale Continue to monitor Continue other home meds as ordered Diet: DM2 DVT prophylaxis: SCDs at this time Dispo: PT/OT ordered for further recs Admission and Anticipated Discharge Date Admission Date: February 06, 2024 Subjective patient was seen laying in bed, a bit shaky Alert and oriented x 2 Denies any chest pain shortness of breath, dysuria at this time. States she is a bit dizzy Review of Systems Review of Systems: All systems reviewed & are unremarkable except as noted in Subjective Physical Exam Physical Exam: General: Alert, oriented. No acute distress Skin: No noted rashes or bruises Psych: Appropriate mood and affect HEENT: NC/AT CV: RRR Resp: Breath sounds clear bilaterally, no increased effort of breathing Abdomen: Soft, nontender Extremities: No edema in lower extremities bilaterally. Results & Data Results & Data Vital Signs (Past 12 Hours) Vital Signs Temp Pulse Pulse Resp BP Pulse Ox O2 Del Method 02/09/24 10:35 36.3 C L 104 H 19 127/77 97 Room Air 02/09/24 07:33 86 02/09/24 07:11 36.9 C 85 17 129/73 96 Room Air 02/09/24 02:33 36.6 C 85 18 124/73 97 Room Air (1) AMS (altered mental status) Altered mental status type: unspecified Qualified Code(s): R41.82 - Altered mental status, unspecified
--- NOTE | 2024-02-09 12:49 | Pharmacy Report ---
Pharmacy Glycemic Short Note 2 - Date of Service February 09, 2024 - Glycemic Short BSG Results (Last 24 hours): 02/08/24 02/08/24 02/09/24 17:04 19:59 04:06 Glucose 194 H POC Glucose 142 H 254 H 02/09/24 02/09/24 07:52 11:49 Glucose POC Glucose 203 H 220 H OUTPATIENT ANTIDIABETIC REGIMEN: * Lantus dose unclear, dose of 16 to 100 units/daily referenced in our records and outside records * Patient also supposedly takes Trulicity, metformin and repaglinide * A1c 9% back in 07/31/23 per outside records. * HbA1c 7.3% on 02/06 ASSESSMENT: 02/08: * Patient received 48 units of insulin total yesterday. 20 were basal and 28 were bolus. * BSGs have been trending up since yesterday. Fasting BSG this morning was 203mg/dL so an additional 10 units of Lantus were ordered. Basal scale will be continued this evening (0-20 units) * BSG continued to rise at lunch so bolus insulin parameters were also tightened to a weight based dosing with a stress of 2. * SARY resolved (SCr 0.81 today) and antibiotics for UTI changed to Augmentin to complete the course. 02/05: * Lisa Miller is a 59 yo F presenting w/AMS and hypoglycemia with BG of 31 per EMS prior to ER arrive. Pt's PMH includes DMII, CKD, hx of CVA, HTN and recurrent UTIs (currently being tx w/ceftriaxone as well for UTI). Pharmacy was consulted for glycemic management d/t pt's hx of DMII and hypoglycemia * Since arrival to [facility], pt's BSG has been 159 and 158. * Due to pt's OCC MED PHYSICIAN hypoglycemia and unclear home Lantus dose will approach more cautiously with dosing parameters starting tonight * Will utilize a NovoLog stress factor closer to 1 and adjust going forward as needed. For reasons above will also use higher BG goal range. * Will order A1c tomorrow since last record >3 months. PLAN FOR INPATIENT GLYCEMIC CONTROL: * Hold outpatient oral diabetes medications * Basal insulin * [id number] units SC x 1 this AM and then HS with dosing parameters (BSGs of : <150-hold; 150-200-10 units; >200-20units) * Bolus insulin * NovoLog per scale ACHS or Q6hrs while NPO * Goal Range: Low 120 mg/dL - High 160 mg/dL * Correction Factor: 25 mg/dL/unit * Nutritional / Prandial insulin per carb ratio of 1 unit per 9 grams CHO consumed
--- NOTE | 2024-02-09 19:34 | Magnetic Resonance Report ---
EXAM: MR brain wo con CLINICAL HISTORY: Pt states hx stroke 2 yrs ago, came in 3 days ago with hypoglycemia. INPATIENT TECHNIQUE: MRI of the brain was performed without contrast with multiplanar sequences obtained. Images were sent through PACS for diagnostic interpretation. COMPARISON: 01/28/2023 FINDINGS: Reduced cerebral volume, with thinned cerebral gyri, deepened cerebral sulci, fissures and basal cisterns, and ectatic ventricles. Involutional brain changes. progression of Bilateral periventricular white matter T2 and FLAIR hyperintensity. Features of deep white matter ischemia. No MRI evidence of recent cerebrovascular insult could be seen in the current study. For follow-up and clinical correlation, if indicated. Normal structures of the remaining cerebral hemispheres, and posterior fossa, with no cervico-medullary junction abnormalities. Central midline structures. No midline shift or mass effects are seen. No intra, extra-axial collection or hemorrhage could be noted. No space-occupying lesions identified. Normal caliber and course of the major cerebral arteries with a preserved signal void in all sequences. Normal MRI features of the calvarial bones and bone marrow intensities. IMPRESSION: Progression of Bilateral periventricular white matter T2 and FLAIR hyperintensity. Features of deep white matter ischemia. Electronically signed by Doug Stinson 02-09-2024 7:34 PM
[2024-02-09] MEDS: MAGNESIUM SULFATE / D5W 1 GM/100 ML BAG IV SCH (21:31)
[2024-02-09] MEDS: cloNIDine HCL 0.1 MG TAB PO ONE (21:31)
[2024-02-10 06:22] LABS: Basophils # (auto) 0.04 K/uL (0.00-0.20); Basophils % (auto) 0.3 %; Eosinophils # (auto) 0.41 K/uL (0.00-0.50); Eosinophils % (auto) 3.5 %; Hematocrit (blood only) 35.7 % (37.0-47.0); Hemoglobin 11.4 g/dl (12.0-16.0); Immature Granulocytes # (auto) 0.05 K/uL (0.01-0.20); Immature Granulocytes % (auto) 0.4 %; Lymphocytes # (auto) 3.68 K/uL (1.20-3.40); Lymphocytes % (auto) 31.5 %; Mean Corpuscular Hemoglobin 28.4 pg (25.0-34.0); Mean Corpuscular Hgb Conc 31.9 g/dL (32.0-36.0); Mean Corpuscular Volume 88.8 fL (80.0-100.0); Mean Platelet Volume 9.7 fL (9.4-12.4); Monocytes # (auto) 1.05 K/uL (0.11-0.59); Neutrophils # (auto) 6.45 K/uL (1.40-6.50); Neutrophils % (auto) 55.3 %; Platelet Count 392 K/uL (130-400); RDW Coefficient of Variation 14.2 % (11.5-14.5); RDW Standard Deviation 45.9 fL (36.4-46.3); Red Blood Count 4.02 M/uL (4.20-5.40); White Blood Count 11.68 K/ul (4.8-10.8)
[2024-02-10 06:46] LABS: BUN Creatinine Ratio 25.4 (10-20); Creatinine Clr Calc Pharmacy 54.2 ml/min; Magnesium 1.9 mg/dl (1.7-2.4); Phosphorus 3.6 mg/dl (2.5-4.9); Potassium 4.3 mmol/L (3.5-5.1)
[2024-02-10] MEDS: LANTUS PER UNIT CHARGE SC ONE (08:20)
--- NOTE | 2024-02-10 11:39 | Hospitalist Progress Note ---
Date of Service February 10, 2024 Assessment & Plan (1) AMS (altered mental status): (2) Hypoglycemia: (3) Acute kidney injury: Plan Patient is 58 y/o F with PMHx significant for HTN, HLD, DM II, CVA, CAD, CKD III, PTSD, fibromyalgia who presented with concerns for AMS in the setting of acute hypoglycemia. Acute Metabolic/Toxic Encephalopathy Hypoglycemia Sepsis Possible UTI reportedly patient was found to have a glucose in the 30s by EMS when they arrived to the house, called for acute alteration in mental status Head CT was unremarkable MRI brain 02/08 noting "Progression of Bilateral periventricular white matter T2 and FLAIR hyperintensity. Features of deep white matter ischemia." However patient with noted leukocytosis and tachycardia on arrival, infectious source likely urine Urine Cx from admission with no significant growth, repeat UA on 02/06 grew out only yeast (likely contaminant) Blood culture x 2 sets no growth to date BioFire was negative chest x-ray with no acute infectious signs CT abdomen pelvis with no acute findings Lactate was elevated at 2.6 then 3.1 before normalizing Was treated with IV Rocephin, currently transitioned to p.o. Augmentin Glucose has remained within normal limits Patient with improved mental status, AAOx3 Consider neurology evaluation Continue to monitor Elevated troponins Likely demand ischemia Trop elevated at 24.6-->54.1--->19.2 Likely elevated in setting of above EKG with NSR Consider echo for any further developments Continue to monitor on telemetry Acute Kidney Injury Pt presenting with creatinine of 1.5 IVF Avoid nephrotoxic agents as able Improving, currently resolved Hyomagnesemia replete as needed DMII hgba1c in Nov of 7.3 Hold home agents insulin sliding scale Continue to monitor Continue other home meds as ordered Diet: DM2 DVT prophylaxis: SCDs at this time Dispo: PT/OT ordered for further recs- tpt did not want to work with them today. Admission and Anticipated Discharge Date Admission Date: February 06, 2024 Subjective Patient was seen in the AM. Had to be awakened, states she is very tired today. Notes that she has not yet been up and moving. Alert and oriented x 3. Otherwise denies acute concerns. Review of Systems Review of Systems: All systems reviewed & are unremarkable except as noted in Subjective Physical Exam Physical Exam: General: Alert, orientedx3. No acute distress Skin: No noted rashes or bruises Psych: Appropriate mood and affect HEENT: NC/AT CV: RRR Resp: Breath sounds clear bilaterally, no increased effort of breathing Abdomen: Soft, nontender Extremities: No edema in lower extremities bilaterally. Results & Data Results & Data Vital Signs (Past 12 Hours) Vital Signs Temp Pulse Resp BP Pulse Ox O2 Del Method 02/10/24 07:20 36.8 C 92 H 16 161/81 H 97 Room Air Diagnostic Findings Chest X-Ray 02/06/24 06:53 XR chest 1V portable HISTORY: 59 years-old Female weakness COMPARISON: 04/12/2022 TECHNIQUE: AP view of the chest FINDINGS: Heart is upper limits of normal in size. Mild bibasilar opacities. No pneumothorax or pleural effusion. Bones appear grossly intact. IMPRESSION: Mild bibasilar opacities may be secondary to summation density versus airspace disease. Findings could be correlated with PA and lateral views of the chest. ACT 112: Negative or not required by law. The above report was generated using voice recognition software. It may contain grammatical, syntax or spelling errors. Electronically signed by: Rohan Bonner M.D. 02/06/2024 8:[address] 02/06/24 06:54 Exam(s): CT HEAD Without Contrast EXAM: CT Head Without Intravenous Contrast CLINICAL HISTORY: Reason for exam: AMS. TECHNIQUE: Axial computed tomography images of the head/brain without intravenous contrast. CTDI is 38.88 mGy and DLP is 547.75 mGy-cm. Automated exposure control was utilized for the study. A dose lowering technique was utilized adhering to the principles of ALARA. COMPARISON: No relevant prior studies available. FINDINGS: Brain: Chronic periventricular ischemic demyelination changes seen due to small vessel disease. No hemorrhage. Chronic infarct seen in the right basal ganglion. Ventricles: Unremarkable. No ventriculomegaly. Bones/joints: Unremarkable. No acute fracture. Soft tissues: Unremarkable. Sinuses: Unremarkable as visualized. No acute sinusitis. Mastoid air cells: Unremarkable as visualized. No mastoid effusion. IMPRESSION: No acute intracranial abnormality Electronically signed by: Otis Scott MD 02/06/24 09:20 AM Abdomen/Pelvis CT 02/06/24 09:[address] WITHOUT CONTRAST CT DOSE: 1313.37 mGy.cm HISTORY: Acute generalized abdominal pain Source infection; lactate TECHNIQUE: Multiaxial CT images of the abdomen and pelvis were performed without contrast. A dose lowering technique was utilized adhering to the principles of ALARA. COMPARISON STUDY: CTA runoff 11/28/2023, CT abdomen and pelvis 01/27/2023 FINDINGS: Minimal bibasilar atelectasis. Low suspicion for millimeter solid nodule of the right middle lobe on image 3 series 3 is stable from prior. No pneumoperitoneum. Unremarkable spleen, pancreas and adrenal glands. Cholecystectomy. Unremarkable liver. lobulations of the kidneys. No hydronephrosis. Urinary bladder wall thickening with partial distention. Subcentimeter hypodensity of the superior pole right kidney, likely benign and too small to characterize. Hysterectomy. Atherosclerosis of the aorta without aneurysm. No lymphadenopathy. Mild colonic diverticulosis. Mild colonic fecal retention. There is no bowel obstruction or bowel wall thickening. No ascites or mesenteric inflammation. Normal appendix. Small focus of postsurgical fat necrosis within the subcutaneous anterior abdominal wall on image 110 series 3. No acute fracture identified. Degenerative changes of the spine, pelvis and hips. IMPRESSION: 1. No acute intra-abdominal or intrapelvic abnormality. 2. No bowel obstruction or bowel wall thickening. 3. No hydronephrosis. 4. Chronic findings as above. ACT 112: Negative or not required by law. The above report was generated using voice recognition software. It may contain grammatical, syntax or spelling errors. Electronically signed by: Rohan Bonner M.D. 02/06/2024 10:26 AM Chest X-Ray 02/06/24 09:32 XR chest 2V PA/lateral HISTORY: 59 years-old Female R/o infectious source, f/u imaging COMPARISON: 02/06/2024 TECHNIQUE: PA and lateral views of the chest FINDINGS: Cardiomediastinal and hilar silhouettes are within normal limits. No pneumothorax, pleural effusion or airspace consolidation. Cholecystectomy. IMPRESSION: No acute process. ACT 112: Negative or not required by law. The above report was generated using voice recognition software. It may contain grammatical, syntax or spelling errors. Electronically signed by: Rohan Bonner M.D. 02/06/2024 10:25 AM Brain MRI 02/09/24 15:46 EXAM: MR brain wo con CLINICAL HISTORY: Pt states hx stroke 2 yrs ago, came in 3 days ago with hypoglycemia. INPATIENT TECHNIQUE: MRI of the brain was performed without contrast with multiplanar sequences obtained. Images were sent through PACS for diagnostic interpretation. COMPARISON: 01/28/2023 FINDINGS: Reduced cerebral volume, with thinned cerebral gyri, deepened cerebral sulci, fissures and basal cisterns, and ectatic ventricles. Involutional brain changes. progression of Bilateral periventricular white matter T2 and FLAIR hyperintensity. Features of deep white matter ischemia. No MRI evidence of recent cerebrovascular insult could be seen in the current study. For follow-up and clinical correlation, if indicated. Normal structures of the remaining cerebral hemispheres, and posterior fossa, with no cervico-medullary junction abnormalities. Central midline structures. No midline shift or mass effects are seen. No intra, extra-axial collection or hemorrhage could be noted. No space-occupying lesions identified. Normal caliber and course of the major cerebral arteries with a preserved signal void in all sequences. Normal MRI features of the calvarial bones and bone marrow intensities. IMPRESSION: Progression of Bilateral periventricular white matter T2 and FLAIR hyperintensity. Features of deep white matter ischemia. Electronically signed by Doug Stinson 02-09-2024 7:34 PM (1) AMS (altered mental status) Altered mental status type: unspecified Qualified Code(s): R41.82 - Altered mental status, unspecified
--- NOTE | 2024-02-10 14:59 | Pharmacy Report ---
Pharmacy Glycemic Short Note 2 - Date of Service February 10, 2024 - Glycemic Short BSG Results (Last 24 hours): 02/09/24 02/09/24 02/10/24 17:21 20:35 05:48 Glucose 287 H POC Glucose 178 H 242 H 02/10/24 02/10/24 07:41 11:34 Glucose POC Glucose 260 H 224 H OUTPATIENT ANTIDIABETIC REGIMEN: * Lantus dose unclear, dose of 16 to 100 units/daily referenced in our records and outside records * Patient also supposedly takes Trulicity, metformin and repaglinide * A1c 9% back in 07/31/23 per outside records. * HbA1c 7.3% on 02/06 ASSESSMENT: 02/09 * Patient received 55 units of insulin total yesterday (30 were basal and 25 were bolus). * BSG are continuing to trend up and fasting BSG this morning was 260mg/dL so 20 units of Lantus were given. It was confirmed tpday that she takes 60 units of Toujeo q HS as an outpatient so a lantus scale was then ordered qHS starting this evening (will receive 30 or 40 units of lantus depending on the BSG). * BSG goal range decreased and CHO ratio was also tightened due to several BSGs> 200. 02/08 * Patient received 48 units of insulin total yesterday. 20 were basal and 28 were bolus. * BSGs have been trending up since yesterday. Fasting BSG this morning was 203mg/dL so an additional 10 units of Lantus were ordered. Basal scale will be continued this evening (0-20 units) * BSG continued to rise at lunch so bolus insulin parameters were also tightened to a weight based dosing with a stress of 2. * SARY resolved (SCr 0.81 today) and antibiotics for UTI changed to Augmentin to complete the course. 02/05: * Lisa Miller is a 59 yo F presenting w/AMS and hypoglycemia with BG of 31 per EMS prior to ER arrive. Pt's PMH includes DMII, CKD, hx of CVA, HTN and recurrent UTIs (currently being tx w/ceftriaxone as well for UTI). Pharmacy was consulted for glycemic management d/t pt's hx of DMII and hypoglycemia * Since arrival to [facility], pt's BSG has been 159 and 158. * Due to pt's [employer] hypoglycemia and unclear home Lantus dose will approach more cautiously with dosing parameters starting tonight * Will utilize a NovoLog stress factor closer to 1 and adjust going forward as needed. For reasons above will also use higher BG goal range. * Will order A1c tomorrow since last record >3 months. PLAN FOR INPATIENT GLYCEMIC CONTROL: * Hold outpatient oral diabetes medications * Basal insulin * Lantus 20 units SC x 1 this AM and then HS with dosing parameters (BSGs of : < 180 30 units; > 180 40units) * Bolus insulin * NovoLog per scale ACHS or Q6hrs while NPO * Goal Range: Low 110 mg/dL - High 140 mg/dL * Correction Factor: 25 mg/dL/unit * Nutritional / Prandial insulin per carb ratio of 1 unit per 7 grams CHO consumed
[2024-02-10] MEDS: KETOROLAC TROMETHAMINE 15 MG/ML VIAL IV ONE (21:14)
[2024-02-10] MEDS: SODIUM CHLORIDE 0.9% 1,000 ML IV ONE (21:15)
[2024-02-11 07:24] VITALS: RESP 16; TEMP 97.3; O2SAT 96
[2024-02-11 08:04] LABS: Basophils # (auto) 0.03 K/uL (0.00-0.20); Basophils % (auto) 0.2 %; Eosinophils # (auto) 0.42 K/uL (0.00-0.50); Eosinophils % (auto) 3.4 %; Hematocrit (blood only) 33.6 % (37.0-47.0); Hemoglobin 10.8 g/dl (12.0-16.0); Immature Granulocytes # (auto) 0.04 K/uL (0.01-0.20); Immature Granulocytes % (auto) 0.3 %; Lymphocytes # (auto) 3.45 K/uL (1.20-3.40); Lymphocytes % (auto) 27.9 %; Mean Corpuscular Hemoglobin 28.2 pg (25.0-34.0); Mean Corpuscular Hgb Conc 32.1 g/dL (32.0-36.0); Mean Corpuscular Volume 87.7 fL (80.0-100.0); Mean Platelet Volume 9.8 fL (9.4-12.4); Monocytes # (auto) 0.94 K/uL (0.11-0.59); Monocytes % (auto) 7.6 %; Neutrophils % (auto) 60.6 %; Platelet Count 366 K/uL (130-400); RDW Coefficient of Variation 14.4 % (11.5-14.5); Red Blood Count 3.83 M/uL (4.20-5.40); White Blood Count 12.38 K/ul (4.8-10.8)
[2024-02-11] MEDS: LANTUS PER UNIT CHARGE SC ONE (08:25)
[2024-02-11 08:30] LABS: BUN Creatinine Ratio 32.7 (10-20); Calcium 8.6 mg/dl (8.6-10.3); Creatinine Clr Calc Pharmacy 57.8 ml/min; Magnesium 1.6 mg/dl (1.7-2.4); Phosphorus 3.3 mg/dl (2.5-4.9); Potassium 4.3 mmol/L (3.5-5.1)
--- NOTE | 2024-02-11 11:34 | Discharge Summary ---
Discharge Summary Date of Service February 11, 2024 Principal Dx & Hospital Course #1 = Principal Diagnosis (1) AMS (altered mental status): (2) Hypoglycemia: (3) Acute kidney injury: Plan Ms. Miller is a 58 y/o F with PMHx significant for HTN, HLD, DM II, CVA, CAD, CKD III, PTSD, fibromyalgia who presented with concerns for AMS in the setting of acute hypoglycemia abd found to have sepsis with likely UTI. Patient noted to have lactate up to 3.1. Glucose on arrival was in the 30s and also patient with SARY. Patient on home repaglinide and insulin. Patient improved with IV CTX. Patient transitioned to augmentin and glucose stablized. Renal function returned to baseline. Patient discharged with continued augmentin course. Patient instructed to hold repaglinide at this time. Patient at baseline, however, tearful given she missed her psychologist appointment. Offered resources however patient declined. #Acute Metabolic/Toxic Encephalopathy resolved #Hypoglycemia #Sepsis iso Possible UTI reportedly patient was found to have a glucose in the 30s by EMS when they arrived to the house, called for acute alteration in mental status Head CT was unremarkable MRI brain 02/08 noting "Progression of Bilateral periventricular white matter T2 and FLAIR hyperintensity. Features of deep white matter ischemia." However patient with noted leukocytosis and tachycardia on arrival, infectious source likely urine Urine Cx from admission with no significant growth, repeat UA on 02/06 grew out only yeast (likely contaminant) Blood culture x 2 sets no growth to date BioFire was negative chest x-ray with no acute infectious signs CT abdomen pelvis with no acute findings Lactate was elevated at 2.6 then 3.1 before normalizing Was treated with IV Rocephin, currently transitioned to p.o. Augmentin -Discharged with augmentin to complete course Glucose has remained within normal limits Held repaglinide given risk of hypoglycemia iso ckd #Elevated troponins #Likely demand ischemia Trop elevated at 24.6-->54.1--->19.2 Likely elevated in setting of above EKG with NSR No active cardiac concerns #Acute Kidney Injury on CKD Pt presenting with creatinine of 1.5 IVF Avoid nephrotoxic agents as able Improving, currently resolved #Hyomagnesemia replaced po #DMII hgba1c in Feb of 7.3 resume home regimen, however repaglinide held for pcp follow up Notes For Next Care Provider Medication Changes From Visit Held repaglinide iso recent SARY on CKD Complete Augmentin course Admission HPI Per Admitting Provider Patient is a 59-year-old female who arrived to ED via EMS after her daughter had called in because the patient had an altered mental state in the morning around 0445. Daughter reports the patient had repetitive statements about being hot. EMS provided the patient with 1 L of D10 after blood glucose readings were 31; this provided improvement in blood sugars. ED course: CBC- WBC 18.63 with left shift (14.34), H&H 11.4/36.0, platelets 415; CMP- Cr 1.5, BUN 45; magnesium 1.2, lactate 2.6, procalcitonin 0.05; UA revealing protein, glucose, leukocyte Estrace, white blood cells with culture pending; EKG NSR. Provided with IVF and Rocephin in ED. Patient is a 59-year-old female with PMHx T2DM insulin-dependent, CKD stage III, hypothyroid, recurrent UTIs, history of CVA, migraines, PTSD, hyperlipidemia, hypertension, and cervical radicular pain presenting via EMS for altered mental status this a.m. Patient was found to be hypoglycemic when EMS arrived, with blood sugar of 31. Patient's daughter, Christy, had called EMS around 444 when she found her mom in bed mumbling statements about being warm, and having twitching movements of the upper extremities. EMS transported patient to ED. She states that currently she feels okay. Does report a recent history of right ear pain approximately 1 to 2 days ago that resulted in drainage of both blood and pus from the right ear. Ear is not currently hurting anymore, however she does have mild R sided neck pain, and has had an ongoing headache that she associates with stress for in unknown amount of time. Has had some sinus congestion, but no cough, or fevers. Denies current urinary complaints such as dysuria, hematuria, or frequency, however her daughter adds that the patient does not normally have typical urinary symptoms when she has a UTI. No back pain. States that she always has numbness/tingling in her toes, and did just have recent procedure (01/21) for a right sided angiography. Only recent sick contact through her daughter who who was around 2 children were diagnosed with strep throat. No additional known sick contacts. Denies chest pain, shortness of breath, palpitations, abdominal pain, N/V/D/C, weakness, vision changes. Patient only took omeprazole this a.m. Please see Dr. Hannon's attestation for adjustments/additions to treatment plan. Admission Exam Per Admitting Provider General: No acute distress Skin: Warm and dry, without rashes or lesions; varicose vein minimal in quantity to BLE Head: Normocephalic, atraumatic Eyes: PERRL, conjunctivae clear, sclera non-icteric ENT: External ear and ear canal without swelling, right TM some cloudiness, left TM WNL, no ear protrusion, no erythema; nose atraumatic; tongue normal appearance, pharynx normal without tonsillar swelling or exudate Neck: Supple, no LAD; no JVD; negative Brudzinski Cardio: RRR, no M/G/R, S1 and S2 normal Resp: Chest wall symmetric, normal respiratory effort; No respiratory distress, Lungs CTA in all lobes bilaterally, no wheezes, rales, or rhonchi Abdomen: Soft, symmetric, nontender; no distention; No masses or hepatosplenomegaly : No CVA tenderness bilaterally MSK: No deformities, full ROM throughout; sensation normal to UE/LE; pulses palpable and equal; no edema. Neuro: Awake, alert; Muscle strength 5/5 bilaterally in UE/LE; Sensation intact bilaterally; CN intact Psych: Appropriate mood and affect Discharge Exam Constitutional WD/WN, vitals as above Respiratory normal respiratory effort, lungs clear to auscultation Cardiovascular RRR, no murmur, no edema Gastrointestinal (Abdomen) normal bowel sounds, soft, nontender, no hepatosplenomegaly Neurologic PERRL, EOMI, accommodation nl, no face palsy, no dysarthria Updated Medication List Medication Instructions Recorded Confirmed Type duloxetine 60 mg capsule,delayed 60 mg PO QPM 02/23/19 02/06/24 History release (Cymbalta) metformin 1,000 mg tablet 1,000 mg PO BID 02/23/19 02/06/24 History diclofenac sodium 1 % topical gel 2 g topical QID PRN Pain 04/12/22 02/06/24 History repaglinide 2 mg tablet 2 mg PO HS 04/12/22 02/06/24 History acetaminophen 325 mg capsule 325 mg PO UD PRN Pain 09/18/22 02/06/24 History cholecalciferol (vitamin D3) 50 50 mcg PO QPM 09/18/22 02/06/24 History mcg (2,000 unit) capsule (Vitamin D3) atorvastatin 80 mg tablet 80 mg PO HS 01/27/23 02/06/24 History fluvoxamine 25 mg tablet See Rx Instructions .Route .COMPLEX 01/27/23 02/06/24 History aspirin 81 mg tablet,delayed 81 mg PO QPM 06/01/23 02/06/24 History release omeprazole 40 mg capsule,delayed 40 mg PO BID 08/26/23 02/06/24 History release topiramate 50 mg tablet (Topamax) 50 mg PO BID 09/03/23 02/06/24 History clopidogrel 75 mg tablet (Plavix) 75 mg PO DAILY #30 tabs 12/19/23 02/06/24 Rx insulin glargine U-300 conc 300 60 unit subcut QPM 12/19/23 02/06/24 History unit/mL (1.5 mL) subcutaneous pen (Touandreea SoloStar U-300 Insulin) amlodipine 2.5 mg tablet 2.5 mg PO QAM 02/06/24 02/06/24 History buspirone 7.5 mg tablet 0 mg PO TID 02/06/24 02/06/24 History fluvoxamine 50 mg tablet See Rx Instructions .Route .COMPLEX 02/06/24 02/06/24 History levothyroxine 100 mcg tablet 100 mcg PO QAM 02/06/24 02/06/24 History oxybutynin chloride 5 mg 0 mg PO QAM 02/06/24 02/06/24 History tablet,extended release 24 hr polyethylene glycol 3350 17 17 g PO DAILY PRN Constipation 02/06/24 02/06/24 History gram/dose oral powder (Miralax) amoxicillin 875 mg-potassium 1 tab PO BIDM #9 tabs 02/11/24 Rx clavulanate 125 mg tablet Hospital Stay Data Consultations 02/06/24 08:51 ED Decision to Admit Stat Diagnostic Imagining Performed 02/06/24 06:54 CT head/brain wo con Stat 02/06/24 09:32 CT abd pelvis wo con Urgent 02/09/24 15:46 MR brain wo con Routine Pending Results Patient Have Any Pending Studies at Discharge: No Discharge Instructions Given to Patient (Per Discharging Provider) You were admitted for confusion and found to have urinary tract infection and low blood sugars. You were treat with IV antibiotics. You will need to complete a course of oral antibiotics and follow up with your PCP. Please continue the following: Augmentin 1 tab two times a day, your next dose is around 5-6pm with dinner Please complete course. You were noted to have a kidney injury with the history of chronic kidney disease. Please hold repaglinide 2mg at bedtime until follow up with PCP. This medication can cause hypoglycemia with kindey disease. Keep a log of your glucose to determine if this medication should be continued Total Time Total Time Spent Total Time Spent (In Minutes): 45
[2024-02-11 13:51] VITALS: BP 132/64; PULSE 91
[2024-02-11] MEDS ORDERED: LANTUS PER UNIT CHARGE SC SCH (21:00)
== END 2024-02-11 14:52 | disposition home or self-care (01) | DRG 871 ==
LOC: ED 05:27 → SUATTDRO 09:02 → EDINP 09:02 → 4W 09:42 → 3N 02-09 19:15

== ENCOUNTER 2025-01-29 00:41 | Inpatient (IN) ==
--- NOTE | 2025-01-29 01:16 | Emergency Department Note ---
Impression & Plan Urinary tract infection Admission ED Provider Note HPI: History obtained from patient and family at the bedside. The patient is a 60-year-old female who presents the emergency department with concern for hypoglycemia. Patient states that earlier tonight her glucometer alarm was going off and she was having trouble getting her blood sugar up. She states that she drank some chocolate milk and had some jelly toast but her blood sugar remained in the 50s. On arrival here to the emergency room this evening the patient's blood sugar is 144, she is alert and oriented and otherwise appears to be in no acute distress. Patient states that she has had the symptoms somewhat persistently for over a week, she was seen at [facility] in [place] on 01/21 for similar symptoms, at that time she also had CT imaging of the head and CT imaging of the abdomen/pelvis that were ultimately unremarkable. Patient states that she takes long-acting insulin once every morning, she does not take any short acting insulin with meals during the day. ROS: - Per HPI Differential Diagnosis: Urinary tract infection, dehydration/acute kidney injury, labile blood glucose levels, unintentional insulin overdose, amongst other potential pathologies. *Outpatient medications and allergy history reviewed. PE: General: Alert HEENT: Normocephalic, trachea midline Eyes: Extraocular eye movement is intact, no scleral erythema Pulmonary: Clear to auscultation bilaterally, no wheezing Cardio: Regular rate and rhythm GI: Abdomen is soft to palpation : No suprapubic tenderness MSK: No evidence of trauma or malformation of the extremities, no edema Skin: No evidence of rash Neuro: Alert, no focal deficits Psychiatric: Cooperative INDEPENDENT INTERPRETATIONS: visual c developer: (As interpreted by myself): - An order was placed for continuous cardiac monitoring - Patient was noted to be in sinus rhythm with a rate of 80 EKG: (As interpreted by myself): Rate: 82 Rhythm: Normal sinus rhythm Intervals: Within normal limits ST changes: No ST elevation Time: 0125 Interventions provided in ED: - IV fluid bolus, IV ceftriaxone Medical Decision Making: IV was established and lab work obtained, patient was placed on burrer machine. Lab work shows a significant leukocytosis of 18.49, hemoglobin is stable at 10.4, platelet count is slightly elevated at 490, CMP shows mild elevation in creatinine at 1.35, glucose is 144, troponin is negative, urinalysis shows 3+ glucose as well as trace ketones, leukocyte esterase is 1+ and there is moderate pyuria with 21-50 white blood cells. Will send for culture. Patient does present with a report from [facility] ER from 01/[address] imaging of the head as well as CT imaging of the abdomen pelvis performed that were ultimately unremarkable. Patient does not have any abdominal tenderness on my exam therefore I do not feel that repeat CT imaging is indicated at this time. I discussed treatment options with the patient and her family member at the bedside, at this time patient is requesting inpatient admission as she overall just does not feel well enough to go home. She states she still does feel somewhat lightheaded, she was given meclizine for this as she stated it felt similar to vertigo that she has had in the past. Blood cultures were therefore ordered, patient was given some IV fluids, she was ordered a dose of IV ceftriaxone for UTI. Her presentation was discussed with the on-call hospitalist, Dr. Pierce, and the patient was placed for admission in stable condition. Consultants/Discussions held with other healthcare providers: - Hospitalist, Dr. Pierce Disposition discussion held by myself with: - Patient and patient's family member at the bedside Diagnosis: 1. Leukocytosis, acute 2. Urinary tract infection, acute 3. Intermittent lightheadedness, acute, nonspecific Disposition: Admission Abner Hampton DO Emergency Medicine Past Med/Surg History Problem List (Updated 01/29/25 @ 03:33 by Abner Hampton DO) Urinary tract infection (Acute) COVID-19 (Acute) Concern about memory Cognitive dysfunction Fatigue Ataxia Orthostasis New onset of headaches after age 48 Idiopathic polyneuropathy Sensory ataxia Chronic cerebral ischemia Anemia Rectal pressure Abdominal pain Gastritis Word finding difficulty CKD (chronic kidney disease), stage III Insulin dependent type 2 diabetes mellitus Weakness (Acute) H/O umbilical hernia repair (Acute 12/18/22) Robotic Assisted Ventral Hernia Repair With Mesh (4 x 3 cm), robotic umbilical Hernia Repair(primary, 1.5 cm) - Anand Cervantes DO, FACS H/O ventral hernia repair (12/18/22) Robotic Assisted Ventral Hernia Repair With Mesh (4 x 3 cm), robotic umbilical Hernia Repair(primary, 1.5 cm) - Anand Cervantes DO, FACS Hypothyroid History of stroke dec 31 2022/writing is shaky and can't find word sometimes. Therapy completed and resolved most. Obese Diabetes mellitus Recurrent UTI Carotid stenosis, left misinterpretated per pt Acute CVA (cerebrovascular accident) (Acute) Carpal tunnel syndrome, right Cervical radicular pain Encounter for pre-operative examination Fibromyalgia Post traumatic stress disorder Hx of migraines Hypertension Hyperlipidemia Sleep apnea BIPAP/haven't used it in yrs. Medical History History of COVID-19 Gastroparesis Sleep apnea Recurrent UTI PTSD (post-traumatic stress disorder) Hypothyroid Hyperlipidemia HTN (hypertension) Gastritis Fibromyalgia Chronic kidney disease Diabetes History of migraine headaches History of stroke Anxiety Generalized headaches Overactive bladder Vomiting Erosion, teeth Stress incontinence Urge incontinence Hx of duodenal ulcer Depression Surgical History History of vascular surgery History of right inguinal hernia repair (2022) History of left cataract surgery Hx of right cataract extraction History of cardiac cath H/O colonoscopy Nausea and vomiting after administration of anesthetic agent History of gynecologic surgery H/O total hysterectomy History of bilateral tubal ligation Status post de Quervain's release surgery History of repair of rotator cuff History of esophagogastroduodenoscopy (EGD) History of herniorrhaphy History of cholecystectomy History of tooth extraction Family History Mother Family history of diabetes mellitus Lung cancer Father COPD (chronic obstructive pulmonary disease) Grandmother (Paternal) Family history of diabetes mellitus Grandmother (Maternal) Family history of diabetes mellitus Sister Breast cancer Diabetes Hypertension Sister Breast cancer Hypertension Sister Cancer Social History (Updated 08/11/24 @ 12:47 by Foster Mistry MD) Smoking Status: Former smoker Tobacco Type: Cigarettes Age Started Using Tobacco: 22; Age Quit Using Tobacco: 46; packs per day: 1; Second Hand Exposure: No; Do You Dip or Chew Tobacco: No; Hx Alcohol Use: No Hx Substance Use: No Preferred Language: Welsh Communication Ability: Effective Communication Ability Comment: speech impairment, hx stroke/communication effective. 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 [employer] How many Children do You have: 3 Feels Safe at Home: Yes Diet: regular during the past year weight has: decreased > 10 lbs Assistive Devices: Glasses Allergies Allergies Allergy/AdvReac Type Severity Reaction Status Date / Time No Known Allergies Allergy Verified 11/29/24 11:43 Home Meds Home Medications Medication Instructions Recorded Confirmed metformin 1,000 mg tablet 1,000 mg PO BID 02/23/19 11/29/24 diclofenac sodium 1 % topical gel 2 g topical QID PRN Pain 04/12/22 11/29/24 repaglinide 2 mg tablet 2 mg PO HS 04/12/22 11/29/24 acetaminophen 325 mg capsule 325 mg PO UD PRN Pain 09/18/22 11/29/24 cholecalciferol (vitamin D3) 50 50 mcg PO QPM 09/18/22 12/12/24 mcg (2,000 unit) capsule (Vitamin D3) atorvastatin 80 mg tablet 80 mg PO HS 01/27/23 11/29/24 aspirin 81 mg tablet,delayed 81 mg PO QPM 06/01/23 12/12/24 release omeprazole 40 mg capsule,delayed 40 mg PO BID 08/26/23 11/29/24 release insulin glargine U-300 conc 300 60 unit subcut BID 12/19/23 11/29/24 unit/mL (1.5 mL) subcutaneous pen (Topadminio SoloStar U-300 Insulin) amlodipine 2.5 mg tablet 2.5 mg PO QAM 02/06/24 11/29/24 buspirone 7.5 mg tablet 7.5 mg PO QAM 02/06/24 11/29/24 levothyroxine 100 mcg tablet 100 mcg PO QAM 02/06/24 11/29/24 solifenacin 10 mg tablet (Vesicare) 10 mg PO QAM 07/16/24 11/29/24 duloxetine 30 mg capsule,delayed 30 mg PO QPM 12/12/24 12/12/24 release duloxetine 60 mg capsule,delayed 60 mg PO QPM 12/12/24 12/12/24 release fluvoxamine 100 mg tablet 100 mg PO QAM 12/12/24 12/12/24 hydroxyzine HCl 25 mg tablet 25 mg PO TID PRN Anxiety 12/12/24 12/12/24 Previous Rx's Medication Instructions Recorded clopidogrel 75 mg tablet (Plavix) 75 mg PO DAILY #30 tabs 12/19/23 topiramate 50 mg tablet (Topamax) 50 mg PO BID #60 tabs 12/01/24 Results & Data (ED) Vital Signs Vital Signs - 24 hr 01/29/25 00:42 01/29/25 01:08 01/29/25 01:37 Temperature 36.2 C L Temperature Source Temporal Artery Scan Pulse Rate 98 H 90 82 Pulse Rate [Apical] Pulse Rhythm Regular Pulse Rhythm [Apical] Pulse Strength [Apical] Respiratory Rate 16 20 Respiratory Effort / Characteristics Non-Labored Spontaneous Respiratory Depth Normal Respiratory Pattern Blood Pressure 131/65 Blood Pressure [Right Arm] Blood Pressure Mean 87 Blood Pressure Mean [Right Arm] Blood Pressure Position Sitting Blood Pressure Position [Right Arm] Pulse Oximetry 97 97 Oxygen Delivery Method Room Air Room Air Sepsis Recent Fever Within 48 Hours No Sepsis New/Unexplained Change in Mental Status N/A Sepsis Action Taken by Nursing No Action Required 01/29/25 02:00 Temperature Temperature Source Pulse Rate Pulse Rate [Apical] 92 H Pulse Rhythm Pulse Rhythm [Apical] Regular Pulse Strength [Apical] Normal Respiratory Rate 20 Respiratory Effort / Characteristics Non-Labored Spontaneous Respiratory Depth Normal Respiratory Pattern Regular Blood Pressure Blood Pressure [Right Arm] 169/79 H Blood Pressure Mean Blood Pressure Mean [Right Arm] 109 Blood Pressure Position Blood Pressure Position [Right Arm] Sitting Pulse Oximetry 97 Oxygen Delivery Method Room Air Sepsis Recent Fever Within 48 Hours Sepsis New/Unexplained Change in Mental Status Sepsis Action Taken by Nursing Laboratory Data 01/29/25 01:14 01/29/25 01:14 Lab Results 01/29/25 01/29/25 01/29/25 Range/Units 01:01 01:14 02:31 WBC 18.49 H (4.8-10.8) K/ul RBC 4.49 (4.20-5.40) M/uL Hgb 10.4 L (12.0-16.0) g/dl Hct 35.6 L (37.0-47.0) % MCV 79.3 L (80.0-100.0) fL MCH 23.2 L (25.0-34.0) pg MCHC 29.2 L (32.0-36.0) g/dL RDW Std Deviation 55.4 H (36.4-46.3) fL RDW Coeff of Lucius 19.4 H (11.5-14.5) % Plt Count 490 H (130-400) K/uL MPV 9.3 L (9.4-12.4) fL Immature Gran % (Auto) 0.3 % Neut % (Auto) 66.7 % Lymph % (Auto) 24.4 % [place] % (Auto) 5.9 % Eos % (Auto) 2.3 % Baso % (Auto) 0.4 % Neut # (Auto) 12.31 H (1.40-6.50) K/uL Lymph # (Auto) 4.52 H (1.20-3.40) K/uL [place] # (Auto) 1.09 H (0.11-0.59) K/uL Eos # (Auto) 0.43 (0.00-0.50) K/uL Baso # (Auto) 0.08 (0.00-0.20) K/uL Immature Gran # (Auto) 0.06 (0.01-0.20) K/uL PT 10.5 (9.0-12.0) Seconds INR 1.0 (0.9-1.1) Sodium 143 (136-145) mmol/L Potassium 4.0 (3.5-5.1) mmol/L Chloride 111 H (98-107) mmol/L Carbon Dioxide 22 (21-32) mmol/L Anion Gap 10 (3-11) BUN 24 H (6-23) mg/dl Creatinine 1.35 H (0.6-1.2) mg/dl Est Cr Clr Drug Dosing 44.9 ml/min eGFR 44.43 BUN/Creatinine Ratio 17.8 (10-20) Glucose 144 H (70-99(Fasting)) mg/dl POC Glucose 144 H (70-99) mg/dl Calcium 9.0 (8.6-10.3) mg/dl Total Bilirubin 0.3 (0.2-1.0) mg/dl AST 15 (13-39) U/L ALT 12 (7-52) U/L Alkaline Phosphatase 69 (34-104) U/L Troponin I High Sens 4.9 (0-14) pg/ml Total Protein 7.4 (6.0-8.3) gm/dl Albumin 3.7 (3.4-5.0) gm/dl Globulin 3.7 (2.5-4.0) gm/dl Albumin/Globulin Ratio 1.0 (0.9-2) Lipase 87 H (11-82) U/L Urine Color Yellow Urine Appearance Clear (Clear) Urine pH 5.5 (4.5-7.5) Ur Specific [place] 1.033 H (1.000-1.030) Urine Protein 1+ H (Negative) Urine Glucose (UA) 3+ H (Negative) Urine Ketones Trace H (Negative) Urine Blood Negative (Negative) Urine Nitrite Negative (Negative) Urine Bilirubin Negative (Negative) Urine Urobilinogen Negative (Negative) Ur Leukocyte Esterase 1+ H (Negative) Urine WBC (Auto) 21-50 H (0-5) /hpf Urine RBC (Auto) 0-2 (0-2) /hpf U Hyaline Cast (Auto) 0-2 (0-2) /lpf U Epithel Cells (Auto) 6-10 H (0-2) /hpf Urine Bacteria (Auto) None Seen (None Seen) Urine Comment Administered Medications Discontinued Medications Meclizine HCl (Meclizine Hcl 25 Mg Tab) 25 mg PO NOW STA Stop: 01/29/25 02:39 Last Admin: 01/29/25 02:46 Dose: 25 mg Documented By: LASHONDA Discharge Plan Visit Data Chief Complaint: Hypoglycemia Stated Complaint: LOW BLOOD SUGAR,VOMITING ED Provider: Abner Hampton Discharge Problem: Urinary tract infection Patient Disposition: Admitted As Inpatient Condition: Fair Forms Stand Alone Forms: My [facility] Prescriptions Prescriptions: No Action omeprazole 40 mg capsule,delayed release(DR/EC) 40 mg PO BID topiramate [Topamax] 50 mg tablet 50 mg PO BID Qty: 60 6RF metformin 1,000 mg Tablet 1,000 mg PO BID repaglinide 2 mg tablet 2 mg PO HS Hold Instructions: Hold until follow up with PCP. Keep a log of your glucose to determine if this medication should be continued diclofenac sodium 1 % Gel 2 g TOPICAL QID PRN (Reason: Pain) acetaminophen 325 mg Capsule 325 mg PO UD PRN (Reason: Pain) cholecalciferol (vitamin D3) [Vitamin D3] 50 mcg (2,000 unit) Capsule 50 mcg PO QPM atorvastatin 80 mg tablet 80 mg PO HS aspirin 81 mg Tablet,Delayed Release (Dr/Ec) 81 mg PO QPM insulin glargine U-300 conc [Toujeo SoloStar U-300 Insulin] 300 unit/mL (1.5 mL) Insulin Pen 60 unit SUBCUT BID clopidogrel [Plavix] 75 mg tablet 75 mg PO DAILY Qty: 30 3RF amlodipine 2.5 mg tablet 2.5 mg PO QAM levothyroxine 100 mcg tablet 100 mcg PO QAM buspirone 7.5 mg tablet 7.5 mg PO QAM Rx Instructions: Caregiver unsure of this medication. Original Directions: 7.5mg by mouth three times daily solifenacin [Vesicare] 10 mg Tablet 10 mg PO QAM duloxetine 30 mg capsule,delayed release(DR/EC) 30 mg PO QPM Rx Instructions: take in addition to 60mg duloxetine 60 mg capsule,delayed release(DR/EC) 60 mg PO QPM fluvoxamine 100 mg tablet 100 mg PO QAM hydroxyzine HCl 25 mg tablet 25 mg PO TID PRN (Reason: Anxiety) Referrals Referrals: Ace Conenlly PA-C [Primary Care Provider] -
[2025-01-29 01:32] LABS: Hematocrit (blood only) 35.6 % (37.0-47.0); Hemoglobin 10.4 g/dl (12.0-16.0); Immature Granulocytes # (auto) 0.06 K/uL (0.01-0.20); Immature Granulocytes % (auto) 0.3 %; Mean Corpuscular Hemoglobin 23.2 pg (25.0-34.0); Mean Corpuscular Volume 79.3 fL (80.0-100.0); Platelet Count 490 K/uL (130-400); RDW Standard Deviation 55.4 fL (36.4-46.3); Red Blood Count 4.49 M/uL (4.20-5.40); White Blood Count 18.49 K/ul (4.8-10.8)
[2025-01-29 01:49] LABS: Alanine Aminotransferase 12.0 U/L (7-52); Albumin Globulin Ratio 1.0 (0.9-2); Albumin Level 3.7 gm/dl (3.4-5.0); Alkaline Phosphatase 69.0 U/L (34-104); Anion Gap 10.0 (3-11); Bilirubin,Total 0.3 mg/dl (0.2-1.0); Blood Urea Nitrogen 24.0 mg/dl (6-23); Calcium 9.0 mg/dl (8.6-10.3); Carbon Dioxide 22.0 mmol/L (21-32); Chloride 111.0 mmol/L (98-107); Creatinine Clr Calc Pharmacy 44.9 ml/min; Globulin 3.7 gm/dl (2.5-4.0); Glucose 144.0 mg/dl (70-99(Fasting)); Lipase 87.0 U/L (11-82); Potassium 4.0 mmol/L (3.5-5.1); Sodium 143.0 mmol/L (136-145); Total Protein 7.4 gm/dl (6.0-8.3)
[2025-01-29 01:57] LABS: INR 1.0 (0.9-1.1); Prothrombin Time 10.5 Seconds (9.0-12.0)
[2025-01-29] MEDS: MECLIZINE HCL 25 MG TAB PO STA (02:46)
[2025-01-29 03:01] LABS: Appearance Urine Clear (Clear); Bacteria Urine Automated None Seen (None Seen); Cast Urine Automated 0-2 /lpf (0-2); Glucose Urine UA 3+ (Negative); RBC Urine Automated 0-2 /hpf (0-2); WBC Urine Automated 21-50 /hpf (0-5)
[2025-01-29] MEDS: SODIUM CHLORIDE 0.9% 500 ML IV ONE (03:47)
[2025-01-29] MEDS: ACETAMINOPHEN 1,000 MG/100 ML VIAL IV STA (03:47)
[2025-01-29] MEDS: cefTRIAXone SODIUM 2,000 MG/50 ML BAG IV STA (04:04)
--- NOTE | 2025-01-29 05:12 | History & Physical Report ---
Date of Service January 29, 2025 Assessment & Plan (1) Sepsis: Plan: 60-year-old female with past medical history significant for hypertension, diabetes, hyperlipidemia, history of CVA, history of CAD, CKD stage III, obstructive sleep apnea, PTSD, fibromyalgia who comes because of feeling of dizzy and nausea for last couple of days and today her sugars were low. Patient says sugars were running low today and she could not bring it up which prompted her to come to the ER. She is also having nausea and vomited once since last couple of days. Has some abdominal discomfort. She was recently in the [facility] ER with similar symptoms and CT head and CT abdomen pelvis were done and mostly unremarkable. Appetite is down. Patient states last few weeks is not feeling good. Micturating okay. Denies any diarrhea or constipation. Denies chest pain or shortness of breath. No cough. Has a headache. No runny nose or sore throat. Currently resting comfortably and hemodynamically stable. Sepsis Has tachycardia, leukocytosis and lactic acid 3 UA is positive History of UTI in the past Received Rocephin in the ER Will continue with Zosyn and fluids Follow repeat lactic acids Will follow cultures Close monitor hemodynamics Diabetes patient was hypoglycemic at home Sugars okay currently Hold home medications Sliding scale Will monitor Will follow HbA1c levels History of sleep apnea States not using CPAP regularly CPAP nightly SARY on CKD stage III Baseline creatinine 1 Presented creatinine 1.3 Hold lisinopril Getting fluids Will follow labs Hypertension Coreg with holding parameters Holding lisinopril for sary and sepsis Will monitor GERD On Protonix and sucralfate History of migraine On topiramate Depression PTSD Fibromyalgia Continue home medications Hypothyroidism on levothyroxine Hyperlipidemia on statin PAD Carotid stenosis on aspirin, Plavix and statin Anemia Hb 10.4 around baseline will follow labs. DVT prophylaxis Heparin subcu Disposition Med/telemetry Full code. History of Present Illness Chief Complaint: Dizziness and hypoglycemia Primary Care Provider: Ace Connelly PA-C 60-year-old female with past medical history significant for hypertension, diabetes, hyperlipidemia, history of CVA, history of CAD, CKD stage III, ob structive sleep apnea, PTSD, fibromyalgia who comes because of feeling of dizzy and nausea for last couple of days and today her sugars were low. Patient says sugars were running low today and she could not bring it up which prompted her to come to the ER. She is also having nausea and vomited once since last couple of days. Has some abdominal discomfort. She was recently in the [facility] ER with similar symptoms and CT head and CT abdomen pelvis were done and mostly unremarkable. Appetite is down. Patient states last few weeks is not feeling good. Micturating okay. Denies any diarrhea or constipation. Denies chest pain or shortness of breath. No cough. Has a headache. No runny nose or sore throat. Currently resting comfortably and hemodynamically stable. Past history. As mentioned above. Past surgical history. Right inguinal hernia repair. Bilateral cataract extraction. Cardiac cath. Colonoscopy. Uterine ablation. Total hysterectomy. Bilateral tubal ligation. Status post De quervains release surgery. History of bilateral rotator cuff repair. EGD. History of herniography. History of cholecystectomy. History of tooth extraction. Social history. Former smoker.. No palepu no drug use. Family history. Mother had lung cancer. Father had COPD. Sister breast cancer. Diabetes. Hypertension. Allergies Allergy/AdvReac Type Severity Reaction Status Date / Time No Known Allergies Allergy Verified 11/29/24 11:43 Home Medications Medication Instructions Recorded Confirmed Type aspirin 81 mg tablet,delayed 81 mg PO DAILY 01/29/25 01/29/25 History release atorvastatin 80 mg tablet (Lipitor) 80 mg PO DAILY 01/29/25 01/29/25 History buspirone 7.5 mg tablet 7.5 mg PO TID 01/29/25 01/29/25 History carvedilol 6.25 mg tablet 6.25 mg PO BID 01/29/25 01/29/25 History clopidogrel 75 mg tablet (Plavix) 75 mg PO DAILY 01/29/25 01/29/25 History dulaglutide 0.75 mg/0.5 mL 0.75 mg subcut WK 01/29/25 01/29/25 History subcutaneous pen injector (Trulicity) duloxetine 30 mg capsule,delayed 30 mg PO BID 01/29/25 01/29/25 History release escitalopram oxalate 10 mg tablet 10 mg PO DAILY 01/29/25 01/29/25 History fluticasone propionate 50 1 spray intranasal DAILY 01/29/25 01/29/25 History mcg/actuation nasal spray,suspension fluvoxamine 25 mg tablet 25 mg PO HS 01/29/25 01/29/25 History levothyroxine 100 mcg tablet 100 mcg PO DAILY 01/29/25 01/29/25 History lisinopril 40 mg tablet 40 mg PO DAILY 01/29/25 01/29/25 History metformin 1,000 mg tablet 1,000 mg PO BID 01/29/25 01/29/25 History mirabegron 50 mg tablet,extended 50 mg PO DAILY 01/29/25 01/29/25 History release 24 hr (Myrbetriq) oxybutynin chloride 5 mg tablet 5 mg PO DAILY 01/29/25 01/29/25 History pantoprazole 40 mg tablet,delayed 40 mg PO DAILY 01/29/25 01/29/25 History release (Protonix) sucralfate 1 gram tablet 1 g PO ACHS 01/29/25 01/29/25 History topiramate 50 mg tablet 50 mg PO BID 01/29/25 01/29/25 History Past Med/Surg History Problem List (Updated 01/29/25 @ 05:49 by Araceli Rodrigues) Sepsis Urinary tract infection (Acute) COVID-19 (Acute) Concern about memory Cognitive dysfunction Fatigue Ataxia Orthostasis New onset of headaches after age 48 Idiopathic polyneuropathy Sensory ataxia Chronic cerebral ischemia Anemia Rectal pressure Abdominal pain Gastritis Word finding difficulty CKD (chronic kidney disease), stage III Insulin dependent type 2 diabetes mellitus Weakness (Acute) H/O umbilical hernia repair (Acute 12/18/22) Robotic Assisted Ventral Hernia Repair With Mesh (4 x 3 cm), robotic umbilical Hernia Repair(primary, 1.5 cm) - Anand Cervantes DO, FACS H/O ventral hernia repair (12/18/22) Robotic Assisted Ventral Hernia Repair With Mesh (4 x 3 cm), robotic umbilical Hernia Repair(primary, 1.5 cm) - Anand Cervantes DO, FACS Hypothyroid History of stroke apr 06 2022/writing is shaky and can't find word sometimes. Therapy completed and resolved most. Obese Diabetes mellitus Recurrent UTI Carotid stenosis, left misinterpretated per pt Acute CVA (cerebrovascular accident) (Acute) Carpal tunnel syndrome, right Cervical radicular pain Encounter for pre-operative examination Fibromyalgia Post traumatic stress disorder Hx of migraines Hypertension Hyperlipidemia Sleep apnea BIPAP/haven't used it in yrs. Medical History History of COVID-19 Gastroparesis Sleep apnea Recurrent UTI PTSD (post-traumatic stress disorder) Hypothyroid Hyperlipidemia HTN (hypertension) Gastritis Fibromyalgia Chronic kidney disease Diabetes History of migraine headaches History of stroke Anxiety Generalized headaches Overactive bladder Vomiting Erosion, teeth Stress incontinence Urge incontinence Hx of duodenal ulcer Depression Surgical History History of vascular surgery History of right inguinal hernia repair (2022) History of left cataract surgery Hx of right cataract extraction History of cardiac cath H/O colonoscopy Nausea and vomiting after administration of anesthetic agent History of gynecologic surgery H/O total hysterectomy History of bilateral tubal ligation Status post de Quervain's release surgery History of repair of rotator cuff History of esophagogastroduodenoscopy (EGD) History of herniorrhaphy History of cholecystectomy History of tooth extraction Family History Mother Family history of diabetes mellitus Lung cancer Father COPD (chronic obstructive pulmonary disease) Grandmother (Paternal) Family history of diabetes mellitus Grandmother (Maternal) Family history of diabetes mellitus Sister Breast cancer Diabetes Hypertension Sister Breast cancer Hypertension Sister Cancer Social History (Updated 08/11/24 @ 12:47 by Foster Mistry MD) Smoking Status: Never smoker Age Started Using Tobacco: 22; Age Quit Using Tobacco: 46; packs per day: 1; Second Hand Exposure: No; Do You Dip or Chew Tobacco: No; Hx Alcohol Use: No Hx Substance Use: No Preferred Language: Azeri Communication Ability: Effective Communication Ability Comment: speech impairment, hx stroke/communication effective. 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 ENT- oropharynx clear Neck- supple, no JVD. Lungs- clear to auscultation no wheezing or crackles Heart- regular rhythm; no murmur, no gallop. Abdomen- normal bowel sounds, soft, nontender, no distension Extremities- no pretibial edema, no erythema seen Neuro- alert, oriented PERRL, no facial palsy; no dysarthria; moves extremities Results & Data Results & Data Vital Signs (Past 12 Hours) Vital Signs Temp Pulse Pulse Resp BP BP Pulse Ox 01/29/25 02:00 92 H 20 169/79 H 97 01/29/25 01:37 82 01/29/25 01:08 90 20 97 01/29/25 00:42 36.2 C L 98 H 16 131/65 97 O2 Del Method 01/29/25 02:00 Room Air 01/29/25 01:37 01/29/25 01:08 Room Air 01/29/25 00:42 Room Air Diagnostic Findings Laboratory Results WBC 18.49 K/ul (4.8-10.8) H 01/29/25 01:14 RBC 4.49 M/uL (4.20-5.40) 01/29/25 01:14 Hgb 10.4 g/dl (12.0-16.0) L 01/29/25 01:14 Hct 35.6 % (37.0-47.0) L 01/29/25 01:14 MCV 79.3 fL (80.0-100.0) L 01/29/25 01:14 MCH 23.2 pg (25.0-34.0) L 01/29/25 01:14 MCHC 29.2 g/dL (32.0-36.0) L 01/29/25 01:14 RDW Std Deviation 55.4 fL (36.4-46.3) H 01/29/25 01:14 RDW Coeff of Lucius 19.4 % (11.5-14.5) H 01/29/25 01:14 Plt Count 490 K/uL (130-400) H 01/29/25 01:14 MPV 9.3 fL (9.4-12.4) L 01/29/25 01:14 Immature Gran % (Auto) 0.3 % 01/29/25 01:14 Neut % (Auto) 66.7 % 01/29/25 01:14 Lymph % (Auto) 24.4 % 01/29/25 01:14 [place] % (Auto) 5.9 % 01/29/25 01:14 Eos % (Auto) 2.3 % 01/29/25 01:14 Baso % (Auto) 0.4 % 01/29/25 01:14 Neut # (Auto) 12.31 K/uL (1.40-6.50) H 01/29/25 01:14 Lymph # (Auto) 4.52 K/uL (1.20-3.40) H 01/29/25 01:14 [place] # (Auto) 1.09 K/uL (0.11-0.59) H 01/29/25 01:14 Eos # (Auto) 0.43 K/uL (0.00-0.50) 01/29/25 01:14 Baso # (Auto) 0.08 K/uL (0.00-0.20) 01/29/25 01:14 Immature Gran # (Auto) 0.06 K/uL (0.01-0.20) 01/29/25 01:14 PT 10.5 Seconds (9.0-12.0) 01/29/25 01:14 INR 1.0 (0.9-1.1) 01/29/25 01:14 Sodium 143 mmol/L (136-145) 01/29/25 01:14 Potassium 4.0 mmol/L (3.5-5.1) 01/29/25 01:14 Chloride 111 mmol/L (98-107) H 01/29/25 01:14 Carbon Dioxide 22 mmol/L (21-32) 01/29/25 01:14 Anion Gap 10 (3-11) 01/29/25 01:14 BUN 24 mg/dl (6-23) H 01/29/25 01:14 Creatinine 1.35 mg/dl (0.6-1.2) H 01/29/25 01:14 Est Cr Clr Drug Dosing 44.9 ml/min 01/29/25 01:14 eGFR 44.43 01/29/25 01:14 BUN/Creatinine Ratio 17.8 (10-20) 01/29/25 01:14 Glucose 144 mg/dl (70-99(Fasting)) H 01/29/25 01:14 POC Glucose 144 mg/dl (70-99) H 01/29/25 01:01 Lactate 3.0 mmol/L (0.4-2.0) H* 01/29/25 04:05 Calcium 9.0 mg/dl (8.6-10.3) 01/29/25 01:14 Total Bilirubin 0.3 mg/dl (0.2-1.0) 01/29/25 01:14 AST 15 U/L (13-39) 01/29/25 01:14 ALT 12 U/L (7-52) 01/29/25 01:14 Alkaline Phosphatase 69 U/L (34-104) 01/29/25 01:14 Troponin I High Sens 4.9 pg/ml (0-14) 01/29/25 01:14 Total Protein 7.4 gm/dl (6.0-8.3) 01/29/25 01:14 Albumin 3.7 gm/dl (3.4-5.0) 01/29/25 01:14 Globulin 3.7 gm/dl (2.5-4.0) 01/29/25 01:14 Albumin/Globulin Ratio 1.0 (0.9-2) 01/29/25 01:14 Lipase 87 U/L (11-82) H 01/29/25 01:14 Urine Color Yellow 01/29/25 02:31 Urine Appearance Clear (Clear) 01/29/25 02:31 Urine pH 5.5 (4.5-7.5) 01/29/25 02:31 Ur Specific [place] 1.033 (1.000-1.030) H 01/29/25 02:31 Urine Protein 1+ (Negative) H 01/29/25 02:31 Urine Glucose (UA) 3+ (Negative) H 01/29/25 02:31 Urine Ketones Trace (Negative) H 01/29/25 02:31 Urine Blood Negative (Negative) 01/29/25 02:31 Urine Nitrite Negative (Negative) 01/29/25 02:31 Urine Bilirubin Negative (Negative) 01/29/25 02:31 Urine Urobilinogen Negative (Negative) 01/29/25 02:31 Ur Leukocyte Esterase 1+ (Negative) H 01/29/25 02:31 Urine WBC (Auto) 21-50 /hpf (0-5) H 01/29/25 02:31 Urine RBC (Auto) 0-2 /hpf (0-2) 01/29/25 02:31 U Hyaline Cast (Auto) 0-2 /lpf (0-2) 01/29/25 02:31 U Epithel Cells (Auto) 6-10 /hpf (0-2) H 01/29/25 02:31 Urine Bacteria (Auto) None Seen (None Seen) 01/29/25 02:31 Urine Comment 01/29/25 02:31 ECG Additional Comments: ECG. Normal sinus rhythm rate of 82. No significant change was found. QTc 479 Code Status & VTE Plan VTE Prophylaxis Plan VTE Prophylaxis will be ordered: Yes
[2025-01-29] MEDS: SODIUM CHLORIDE 0.9% 1,000 ML IV ONE (05:42)
[2025-01-29] MEDS ORDERED: GLUCOSE 10 TAB/TUBE PO PRN (05:55)
[2025-01-29] MEDS ORDERED: NITROGLYCERIN SL 0.4 MG/TAB TAB SL PRN (05:55)
[2025-01-29] MEDS ORDERED: GLUCAGON FOR INJ 1 MG VIAL SQ PRN (05:55)
[2025-01-29] MEDS ORDERED: GLUCOSE 40% GEL 15 GM TUBE PO PRN (05:55)
[2025-01-29] MEDS ORDERED: CARBOHYDRATES FOR HYPOGLYCEMIA PO PRN (05:55)
[2025-01-29] MEDS ORDERED: ONDANSETRON INJ 2 MG/ML 2 ML VIAL IV PRN (05:55)
[2025-01-29] MEDS ORDERED: DEXTROSE 50% 50 ML SYRINGE IV PRN (05:55)
[2025-01-29] MEDS: PIPERACILLIN/TAZOBACTAM 4.5 GM/100 ML BAG IV SCH (06:42)
[2025-01-29] MEDS: HEPARIN SOD 5,000 UNIT/0.5 ML VIAL SQ SCH (06:42)
[2025-01-29] MEDS: SODIUM CHLORIDE 0.9% 1,000 ML IV SCH (06:43)
[2025-01-29] MEDS: LEVOTHYROXINE SODIUM 100 MCG TABLET PO SCH (06:43)
[2025-01-29] MEDS: INSULIN ASPART PER UNIT CHARGE SC SCH (07:48)
[2025-01-29] MEDS: ASPIRIN 81 MG ECTAB PO SCH (08:10)
[2025-01-29] MEDS: VIBEGRON 75 MG TAB PO SCH (08:10)
[2025-01-29] MEDS: TOPIRAMATE 50 MG TAB PO SCH (08:10)
[2025-01-29] MEDS: SUCRALFATE 1 GM TAB PO SCH (08:10)
[2025-01-29] MEDS: ATORVASTATIN 40 MG TAB PO SCH (08:10)
[2025-01-29] MEDS: FLUTICASONE PROPIONATE NA SPR 16 GM BTL SCH (08:10)
[2025-01-29] MEDS: CLOPIDOGREL BISULFATE 75 MG TAB PO SCH (08:10)
[2025-01-29] MEDS: ESCITALOPRAM OXALATE 10 MG TAB PO SCH (08:10)
[2025-01-29 09:11] LABS: Hematocrit (blood only) 30.5 % (37.0-47.0); Hemoglobin 9.2 g/dl (12.0-16.0); Mean Corpuscular Hemoglobin 23.8 pg (25.0-34.0); Mean Corpuscular Volume 78.8 fL (80.0-100.0); Platelet Count 384 K/uL (130-400); RDW Standard Deviation 54.4 fL (36.4-46.3); Red Blood Count 3.87 M/uL (4.20-5.40); White Blood Count 13.23 K/ul (4.8-10.8)
[2025-01-29 09:30] LABS: Anion Gap 7.0 (3-11); Blood Urea Nitrogen 27.0 mg/dl (6-23); Calcium 8.2 mg/dl (8.6-10.3); Carbon Dioxide 21.0 mmol/L (21-32); Chloride 114.0 mmol/L (98-107); Creatinine Clr Calc Pharmacy 44.6 ml/min; Glucose 76.0 mg/dl (70-99(Fasting)); Magnesium 1.4 mg/dl (1.7-2.4); Potassium 4.0 mmol/L (3.5-5.1); Sodium 142.0 mmol/L (136-145)
[2025-01-29 09:33] LABS: Immature Granulocytes # (auto) 0.03 K/uL (0.01-0.20); Immature Granulocytes % (auto) 0.2 %; Ovalocytes 1+
--- NOTE | 2025-01-29 10:40 | Communication Note ---
Date of Service: January 29, 2025 patient was seen and examined at bedside. 60-year-old female with past medical history significant for hypertension, diabetes, hyperlipidemia, CVA, CAD, CKD stage III, obstructive sleep apnea, PTSD, fibromyalgia who comes because of feeling of dizzy and nausea for last couple of days and on presentation day her sugars were low. Patient says sugars were running low and she could not bring it up which prompted her to come to the ER. 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 Has some abdominal discomfort. She was recently in the [facility] ER with similar symptoms and CT head and CT abdomen pelvis were done and mostly unremarkable. Appetite is down. Patient states last few weeks is not feeling good. She is being managed for the following: Complicated UTI Severe Sepsis POA, SIRS + Lactic acid +ve at presentation, likely 2/2 UTI Ho UTI comes in w/ abdominal discomfort, generalized feeling of unwell, nausea, vomiting UA positive, LA downtrended. Continue zosyn 01/28, c/w probiotic c/w ivf, pt reports improving nausea, vomiting and being able to eat better. f/u blood and urine cultures. SARY on CKD stage III: Baseline creatinine 1. Presented creatinine 1.3. c/w ivf, avoid nephrotoxics. monitor. lisinopril on hold. Diabetes: patient was hypoglycemic at home. Sugars okay currently. Hold home medications. Sliding scale. Will monitor. HbA1c levels pending. History of sleep apnea: States not using CPAP regularly. CPAP nightly Other chronic medical conditions: Continue with/resume home meds as when able. Hypertension: Coreg with holding parameters. Lisinopril on hold due to SARY. GERD: Continue with home Protonix and sucralfate Migraine: On topiramate at home, continue. Depression/PTSD/fibromyalgia: Continue home medication Hypothyroidism: Continue home levothyroxine Hyperlipidemia: Continue home statin PAD/carotid stenosis: Continue home aspirin, Plavix, statin. Anemia, chronic, stable: Hemoglobin of 10.4 at presentation, around baseline. Monitor. DVT prophylaxis: Heparin subcu Disposition: Med/tele, PT/OT Full code For detailed information on the patient, refer to today's H&P note.
[2025-01-29 12:15] LABS: Hemoglobin A1C 6.4 % (4.5-5.6)
[2025-01-29] MEDS: ACETAMINOPHEN 325 MG TAB PO PRN (16:22)
--- NOTE | 2025-01-29 16:49 | Electrocardiogram Report ---
Test Reason : Blood Pressure : */* mmHG Vent. Rate : 82 BPM Atrial Rate : 82 BPM P-R Int : 158 ms QRS Dur : 74 ms QT Int : 410 ms P-R-T Axes : 64 57 33 degrees QTcB Int : 479 ms Normal sinus rhythm Normal ECG When compared with ECG of 06-Feb-2024 07:20, No significant change was found Confirmed by Darryl Clark ([id number]) on 01/29/2025 4:49:07 PM Referred By: REFERRED SELF Confirmed By: Darryl Clark
[2025-01-29] MEDS: LIDOCAINE 5% 1 PATCH TD SCH (18:23)
[2025-01-29] MEDS: REMOVE LIDODERM PATCH SCH (21:28)
[2025-01-30 07:31] LABS: Hematocrit (blood only) 27.7 % (37.0-47.0); Hemoglobin 8.6 g/dl (12.0-16.0); Mean Corpuscular Hemoglobin 24.6 pg (25.0-34.0); Mean Corpuscular Volume 79.1 fL (80.0-100.0); Platelet Count 384 K/uL (130-400); RDW Standard Deviation 54.5 fL (36.4-46.3); Red Blood Count 3.50 M/uL (4.20-5.40); White Blood Count 11.14 K/ul (4.8-10.8)
[2025-01-30 07:39] LABS: Hemoglobin A1C 6.4 % (4.5-5.6)
[2025-01-30 07:52] LABS: Anion Gap 5.0 (3-11); Blood Urea Nitrogen 20.0 mg/dl (6-23); Calcium 8.2 mg/dl (8.6-10.3); Carbon Dioxide 23.0 mmol/L (21-32); Chloride 115.0 mmol/L (98-107); Creatinine Clr Calc Pharmacy 47.7 ml/min; Glucose 162.0 mg/dl (70-99(Fasting)); Magnesium 1.3 mg/dl (1.7-2.4); Potassium 3.9 mmol/L (3.5-5.1); Sodium 143.0 mmol/L (136-145)
[2025-01-30] MEDS ORDERED: POTASSIUM PHOS 3 MMOL/1 ML INFUSION IV STA (08:33)
[2025-01-30] MEDS: ADVANCED PROBIOTIC 625 MG CAPSULE PO SCH (08:50)
[2025-01-30] MEDS: MAGNESIUM SULFATE / D5W 1 GM/100 ML BAG IV SCH (09:40)
[2025-01-30] MEDS: POTASSIUM PHOSPHATE 15 MMOL in SODIUM CHLORIDE 0.9% 250 ML IV ONE (09:40)
--- NOTE | 2025-01-30 12:08 | Hospitalist Progress Note ---
Date of Service January 30, 2025 Assessment & Plan (1) Sepsis: Plan 60-year-old female with past medical history significant for hypertension, diabetes, hyperlipidemia, CVA, CAD, CKD stage III, obstructive sleep apnea, PTSD, fibromyalgia who comes because of feeling of dizzy and nausea for last couple of days and on presentation day her sugars were low. Patient says sugars were running low and she could not bring it up which prompted her to come to the ER. 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 Has some abdominal discomfort. She was recently in the [facility] ER with similar symptoms and CT head and CT abdomen pelvis were done and mostly unremarkable. Appetite is down. Patient states last few weeks is not feeling good. She is being managed for the following: Complicated UTI Severe Sepsis POA, SIRS + Lactic acid +ve at presentation, likely 2/2 UTI Ho UTI comes in w/ abdominal discomfort, generalized feeling of unwell, nausea, vomiting UA positive, LA downtrended. Continue zosyn 01/28, c/w probiotic, de-escalate once culture results are out. c/w ivf, pt reports improved nausea, vomiting and being able to eat better. f/u blood and urine cultures. SARY on CKD stage III: Baseline creatinine 1. Presented creatinine 1.3. c/w ivf, avoid nephrotoxics. monitor. lisinopril on hold. Cr gradually trending down. Diabetes: patient was hypoglycemic at home. Sugars okay currently. Hold home medications. Sliding scale. Will monitor. HbA1c levels 6.4; pt states Toujeo 60 units in AM and Jardiance 10 mg. She was not able to eat and taking her diabetic meds at home, could be the reason for hypoglycemic events prior to arrival. Pt advised to keep handy candy /orange juice for hypoglycemic events. pt doesn't take trulicity anymore. History of sleep apnea: States not using CPAP regularly. CPAP nightly Other chronic medical conditions: Continue with/resume home meds as when able. Hypertension: Coreg with holding parameters. Lisinopril on hold due to SARY. GERD: Continue with home Protonix and sucralfate Migraine: On topiramate at home, continue. Depression/PTSD/fibromyalgia: Continue home medication Hypothyroidism: Continue home levothyroxine Hyperlipidemia: Continue home statin PAD/carotid stenosis: Continue home aspirin, Plavix, statin. Anemia, chronic, stable: Hemoglobin of 10.4 at presentation, around baseline. Monitor. DVT prophylaxis: Heparin subcu Disposition: Med/tele, PT/OT Full code Admission and Anticipated Discharge Date Admission Date: January 29, 2025 Subjective Patient was seen and examined at bedside. Patient was lying in bed, on room air, NAD, resting comfortably. Patient reports improvement in her nausea, vomiting, diarrhea. Patient reports almost formed stool last evening. Patient reports being able to eat okay. Patient reports chronic back pain, recommended to be out of bed and mobile as able. Patient reports feeling better today. Physical Exam Physical Exam: General- Not in distress Head- atraumatic Eyes- PERRL. ENT- oropharynx clear Neck- supple, no JVD. Lungs- clear to auscultation no wheezing or crackles Heart- regular rhythm; no murmur, no gallop. Abdomen- normal bowel sounds, soft, nontender, no distension Extremities- no pretibial edema, no erythema seen Neuro- alert, oriented PERRL, no facial palsy; no dysarthria; moves extremities Results & Data Results & Data Vital Signs (Past 12 Hours) Vital Signs Temp Pulse Pulse Resp BP Pulse Ox O2 Del Method 01/30/25 11:19 36.7 C 76 20 124/65 95 Room Air 01/30/25 08:50 Room Air 01/30/25 08:00 36.6 C 93 H 20 134/63 93 Room Air 01/30/25 06:45 91 H 01/30/25 03:46 37.0 C 97 H 20 109/63 93 Room Air 01/30/25 00:16 37.1 C 97 H 20 129/53 L 94 Room Air
[2025-01-30 13:23] LABS: Hematocrit (blood only) 28.9 % (37.0-47.0); Hemoglobin 8.6 g/dl (12.0-16.0)
[2025-01-31] MEDS: INFLUENZA VACC TS2025-26(6m+)/PF (IIV3) 0.5mL Syr IM ONE (09:51)
[2025-01-31 10:28] LABS: Hematocrit (blood only) 31.6 % (37.0-47.0); Hemoglobin 9.3 g/dl (12.0-16.0); Immature Granulocytes # (auto) 0.03 K/uL (0.01-0.20); Immature Granulocytes % (auto) 0.3 %; Mean Corpuscular Hemoglobin 23.5 pg (25.0-34.0); Mean Corpuscular Volume 79.8 fL (80.0-100.0); Platelet Count 379 K/uL (130-400); RDW Standard Deviation 55.8 fL (36.4-46.3); Red Blood Count 3.96 M/uL (4.20-5.40); White Blood Count 11.28 K/ul (4.8-10.8)
[2025-01-31 10:43] LABS: Anion Gap 6.0 (3-11); Blood Urea Nitrogen 10.0 mg/dl (6-23); Calcium 8.4 mg/dl (8.6-10.3); Carbon Dioxide 22.0 mmol/L (21-32); Chloride 114.0 mmol/L (98-107); Creatinine Clr Calc Pharmacy 61.5 ml/min; Glucose 195.0 mg/dl (70-99(Fasting)); Magnesium 1.5 mg/dl (1.7-2.4); Potassium 3.7 mmol/L (3.5-5.1); Sodium 142.0 mmol/L (136-145)
[2025-01-31] MEDS ORDERED: POTASSIUM PHOS 3 MMOL/1 ML INFUSION IV STA (10:57)
[2025-01-31] MEDS: POTASSIUM PHOSPHATE 15 MMOL in SODIUM CHLORIDE 0.9% 250 ML IV ONE (11:30)
--- NOTE | 2025-01-31 12:56 | Discharge Summary ---
Date of Service January 31, 2025 Admission HPI Per Admitting Provider 60-year-old female with past medical history significant for hypertension, diabetes, hyperlipidemia, history of CVA, history of CAD, CKD stage III, obstructive sleep apnea, PTSD, fibromyalgia who comes because of feeling of dizzy and nausea for last couple of days and today her sugars were low. Patient says sugars were running low today and she could not bring it up which prompted her to come to the ER. She is also having nausea and vomited once since last couple of days. Has some abdominal discomfort. She was recently in the [facility] ER with similar symptoms and CT head and CT abdomen pelvis were done and mostly unremarkable. Appetite is down. Patient states last few weeks is not feeling good. Micturating okay. Denies any diarrhea or constipation. Denies chest pain or shortness of breath. No cough. Has a headache. No runny nose or sore throat. Currently resting comfortably and hemodynamically stable. Past history. As mentioned above. Past surgical history. Right inguinal hernia repair. Bilateral cataract extraction. Cardiac cath. Colonoscopy. Uterine ablation. Total hysterectomy. Bilateral tubal ligation. Status post De quervains release surgery. History of bilateral rotator cuff repair. EGD. History of herniography. History of cholecystectomy. History of tooth extraction. Social history. Former smoker.. No palepu no drug use. Family history. Mother had lung cancer. Father had COPD. Sister breast cancer. Diabetes. Hypertension. Admission Exam Per Admitting Provider General- Not in distress Head- atraumatic Eyes- PERRL. ENT- oropharynx clear Neck- supple, no JVD. Lungs- clear to auscultation no wheezing or crackles Heart- regular rhythm; no murmur, no gallop. Abdomen- normal bowel sounds, soft, nontender, no distension Extremities- no pretibial edema, no erythema seen Neuro- alert, oriented PERRL, no facial palsy; no dysarthria; moves extremities Principal Diagnosis Complicated UTI Severe Sepsis POA Ho UTI SARY on CKD stage III HO diabetes Discharge Exam General- Not in distress Head- atraumatic Eyes- PERRL. ENT- oropharynx clear Neck- supple, no JVD. Lungs- clear to auscultation no wheezing or crackles Heart- regular rhythm; no murmur, no gallop. Abdomen- normal bowel sounds, soft, nontender, no distension Extremities- no pretibial edema, no erythema seen Neuro- alert, oriented PERRL, no facial palsy; no dysarthria; moves extremities Discharge Data Allergies Allergy/AdvReac Type Severity Reaction Status Date / Time No Known Allergies Allergy Verified 11/29/24 11:43 Consultations 01/29/25 03:27 ED Decision to Admit Stat Hospital Course (1) Sepsis: Plan 60-year-old female with past medical history significant for hypertension, diabetes, hyperlipidemia, CVA, CAD, CKD stage III, obstructive sleep apnea, PTSD, fibromyalgia who comes because of feeling of dizzy and nausea for last couple of days and on presentation day her sugars were low. Patient says sugars were running low and she could not bring it up which prompted her to come to the ER. She is also having nausea and vomited once since last couple of days [employer]. Has some abdominal discomfort. She was recently in the [facility] ER with similar symptoms and CT head and CT abdomen pelvis were done and mostly unremarkable. Appetite is down. Patient states last few weeks is not feeling good. She was managed for the following: Complicated UTI Severe Sepsis POA, SIRS + Lactic acid +ve at presentation, likely 2/2 UTI Ho UTI comes in w/ abdominal discomfort, generalized feeling of unwell, nausea, vomiting UA positive, LA downtrended. Zosyn 01/28, c/w probiotic, complete 5-7 d antibiotic, to po on dc. Pt reports improved nausea, vomiting and being able to eat better. reports being close to her baseline. BL Cx w/ no growth so far. SARY on CKD stage III: Baseline creatinine 1. Presented creatinine 1.3. c/w ivf, avoid nephrotoxics. monitor.s/p ivf, now resolved. Diabetes: patient was hypoglycemic at home. Sugars okay currently. Hold home medications. Sliding scale. Will monitor. HbA1c levels 6.4; pt states Toujeo 60 units in AM and Jardiance 10 mg. She was not able to eat and taking her diabetic meds at home, could be the reason for hypoglycemic events prior to arrival. Pt advised to keep handy candy /orange juice for hypoglycemic events. pt doesn't take trulicity anymore. History of sleep apnea: States not using CPAP regularly. CPAP nightly Other chronic medical conditions: Continue with/resume home meds as when able. Hypertension: Coreg with holding parameters. Lisinopril on hold due to SARY. GERD: Continue with home Protonix and sucralfate Migraine: On topiramate at home, continue. Depression/PTSD/fibromyalgia: Continue home medication Hypothyroidism: Continue home levothyroxine Hyperlipidemia: Continue home statin PAD/carotid stenosis: Continue home aspirin, Plavix, statin. Anemia, chronic, stable: Hemoglobin of 10.4 at presentation, around baseline. Monitor. DVT prophylaxis: Heparin subcu Disposition: Med/tele, PT/OT Full code Pt's updated over the phone about plan of care. Patient is being discharged home with following instructions at the point of discharge: Follow-up with your primary care physician within a week time and likely you will need labs CBC/CMP/magnesium/phosphorus. You were evaluated for weakness, hypoglycemia, complicated UTI. You will be discharged on antibiotic to complete course for UTI. Recommend that you establish with diabetic clinic and maintain close follow-up for ongoing management of your diabetes. In an event of hypoglycemic episodes (dizziness, shakiness, sweating, palpitation, hunger, anxiety) as discussed at the bedside, recommend that you keep handy orange juice or any simple carbohydrates like candies; and take them to prevent hypoglycemia. Take your medications as prescribed. Please make sure that you are able to get your medications today by calling your pharmacy before you leave the hospital so that your treatment continuity is not broken. Home Health Attestation I certify that this patient is under my care and that I, or a physicians conservation assistant working with me, had a face to-face encounter that meets the home health [id number] encounter requirements with this patient. The encounter with the patient was in whole, or in part, for the following medical condition, which is the primary reason for home health care (list medical condition): I certify that, based on my findings, the following services are medically necessary home health services: My clinical findings support the need for the above services because: Further, I certify that my clinical findings support that this patient is homebound (i.e. absences from home require considerable and taxing effort and are for medical reasons or caodaism services or infrequently or of short duration when for other reasons) because: Certification for Home Health Services: Based on the above findings, I certify that this patient is confined to the home and needs intermittent penitentiary care, physical therapy and/or speech therapy or continues to need occupational therapy. The patient is under my care, and I have initiated the establishment of the plan of care. This patient will be followed by a physician who will periodically review the plan of care. Total Time Total Time Spent Total Time Spent (In Minutes): 35 Discharge Plan Discharge Items Patient Disposition: Home - Self-Care Reason For Visit: DIZZINESS, UTI Discharge Diagnosis: Complicated UTI Severe Sepsis POA Ho UTI SARY on CKD stage III HO diabetes Condition on Discharge: Fair Activity: Resume your previous activity Non-emergency contact: Primary Care Provider Call non-emergency contact if: you have any medication questions and your symptoms worsen Follow-up/Referrals: Ace Connelly PA-C [Primary Care Provider] - (Date & Time 02/04/2025 11:20 AM Provider: Ace Connelly PA-C [facility] [place] ) Diet: Carb Consistent or DM2 and Heart Healthy Addtl Attending Provider Instructions: Follow-up with your primary care physician within a week time and likely you will need labs CBC/CMP/magnesium/phosphorus. You were evaluated for weakness, hypoglycemia, complicated UTI. You will be discharged on antibiotic to complete course for UTI. Recommend that you establish with diabetic clinic and maintain close follow-up for ongoing management of your diabetes. In an event of hypoglycemic episodes (dizziness, shakiness, sweating, palpitation, hunger, anxiety) as discussed at the bedside, recommend that you keep handy orange juice or any simple carbohydrates like candies; and take them to prevent hypoglycemia. Take your medications as prescribed. Please make sure that you are able to get your medications today by calling your pharmacy before you leave the hospital so that your treatment continuity is not broken. Pending Studies at Discharge: Yes Stand-Alone Forms: My [facility] [employer], Smoking Cessation Medications and DC Order Prescriptions: New Advanced Probiotic 625 mg (10 billion cell) Capsule 1 cap PO DAILY Qty: 14 0RF cefdinir 300 mg capsule 300 mg PO BID 3 Days Qty: 6 0RF Continued carvedilol 6.25 mg tablet 6.25 mg PO BID sucralfate 1 gram Tablet 1 g PO ACHS fluvoxamine 25 mg tablet 25 mg PO HS pantoprazole [Protonix] 40 mg Tablet,Delayed Release (Dr/Ec) 40 mg PO DAILY metformin 1,000 mg tablet 1,000 mg PO BID buspirone 7.5 mg tablet 7.5 mg PO TID oxybutynin chloride 5 mg Tablet 5 mg PO DAILY lisinopril 40 mg tablet 40 mg PO DAILY fluticasone propionate 50 mcg/actuation spray,suspension 1 spray INTRANASAL DAILY escitalopram oxalate 10 mg tablet 10 mg PO DAILY topiramate 50 mg tablet 50 mg PO BID duloxetine 30 mg capsule,delayed release(DR/EC) 30 mg PO BID mirabegron [Myrbetriq] 50 mg tablet extended release 24 hr 50 mg PO DAILY Trulicity 0.75 mg/0.5 mL Pen Injector 0.75 mg SUBCUT WK atorvastatin [Lipitor] 80 mg Tablet 80 mg PO DAILY clopidogrel [Plavix] 75 mg Tablet 75 mg PO DAILY aspirin [Aspir-81] 81 mg Tablet,Delayed Release (Dr/Ec) 81 mg PO DAILY levothyroxine 100 mcg tablet 100 mcg PO DAILY Discharge Orders: Discharge Order (Routine); Ordered 01/31/25 Ordered By: Leonela Duffy/Other Patient Handouts: Hypoglycemia (Low Blood Sugar), Managing Type 2 Diabetes Admission Data Admit Date/Time: 01/29/25 04:52 Attending Provider: Leonela Nava Admit Provider: Marty Pierce Primary Care Provider: Ace Connelly Other Providers: Marty Pierce
[2025-01-31] MEDS: MAGNESIUM SULFATE / D5W 1 GM/100 ML BAG IV SCH (12:59)
[2025-01-31 15:54] VITALS: RESP 18; TEMP 97.7; O2SAT 95
[2025-01-31] MEDS: cefTRIAXone SODIUM 2,000 MG/50 ML BAG IV SCH (16:53)
[2025-01-31 17:09] VITALS: BP 127/72; PULSE 89
== END 2025-01-31 17:45 | disposition home or self-care (01) | DRG 872 ==
LOC: ED 00:41 → 2N 04:52